=== PATIENT | female | born 1985 | race Caucasian/White ===

== ENCOUNTER 2019-12-07 09:59 | Emergency (ER) | payer OTHER ==
--- OUTSIDE RECORDS SUMMARY | 2019-12-07 10:01 | XMS REPORT ---
:1985 Author Organization eClinicalWorks Care Team Providers Name Role Phone Kell Hope Provider Role Unavailable Allergies, Adverse Reactions, Alerts Substance Reaction Event Type N.K.D.A. Info Not Available Non Drug Allergy Problems Problem Type Condition Code Onset Dates Condition Statu s Assessment Major depressive disorder, single F32.9 Active episode, unspecified Assessment Adult BMI 50.0-59.9 kg/sq m Z68.43 Active Assessment Advised about management of weight Z78.9 Active Problem Adult BMI 50.0-59.9 kg/sq m Z68.43 Active Problem Morbid obesity E66.01 Active Problem Encounter for preoperative Z01.818 A ctive examination for general surgical procedure Problem Major depressive disorder, single F32.9 Active episode, unspecified Problem Other fatigue R53.83 Active Problem Amenorrhea N91.2 Active Problem Seasonal allergies J30.2 Active Medications Medication Code Code Instructions Start End Date Status Dosage System Date BuPROPion HCl [facility] [id number] 100 MG Orally Jun 13, Active 1 tablet Twice a day 2018 Results No Known Results Summary Purpose eClinicalWorks Submission
--- OUTSIDE RECORDS SUMMARY | 2019-12-07 10:01 | XMS REPORT ---
[...] BMI 50.0-59.9 kg/sq m Z68.43 Active Problem Adult BMI 50.0-59.9 kg/sq m Z68.43 Active Problem Morbid obesity E66.01 Active Problem Encounter for preoperative Z01.818 A ctive examination for general surgical procedure Problem Major depressive disorder, single F32.9 Active episode, unspecified Problem Other fatigue R53.83 Active Problem Amenorrhea N91.2 Active Problem Seasonal allergies J30.2 Active Medications Medication Code Code Instructions Start End Date Status Dosage System Date BuPROPion HCl [facility] [id number] 100 MG Orally Jun 13, Active 1 tablet Twice a day 2018 Results No Known Results Summary Purpose eClinicalWorks Submission
--- OUTSIDE RECORDS SUMMARY | 2019-12-07 10:01 | XMS REPORT ---
:1985 Author Organization eClinicalWorks Care Team Providers Name Role Phone Kell Hope Provider Role Unavailable Allergies No Known Allergies Problems Problem Type Condition Code Onset Dates Condition Statu s Problem Other fatigue R53.83 Active Problem Encounter for preoperative Z01.818 A ctive examination for general surgical procedure Problem Adult BMI 50.0-59.9 kg/sq m Z68.43 Active Problem Vitamin D deficiency E55.9 Active Problem Seasonal allergies J30.2 Active Problem Major depressive disorder, single F32.9 Active episode, unspecified Problem Morbid obesity E66.01 Active Problem Amenorrhea N91.2 Active Medications No Known Medications Results No Known Results Summary Purpose eClinicalWorks Submission
--- OUTSIDE RECORDS SUMMARY | 2019-12-07 10:01 | XMS REPORT ---
:1985 Author Organization eClinicalWorks Care Team Providers Name Role Phone Kell Hope Provider Role Unavailable Allergies, Adverse Reactions, Alerts Substance Reaction Event Type N.K.D.A. Info Not Available Non Drug Allergy Problems Problem Type Condition Code Onset Dates Condition Statu s Assessment Major depressive disorder, single F32.9 Active episode, unspecified Assessment Morbid obesity E66.01 Active Problem Adult BMI 50.0-59.9 kg/sq m Z68.43 Active Problem Amenorrhea N91.2 Active Problem Morbid obesity E66.01 Active Problem Other fatigue R53.83 Active Problem Seasonal allergies J30.2 Active Problem Major depressive disorder, single F32.9 Active episode, unspecified Medications Medication Code Code Instructions Start End Date Status Dosage System Date BuPROPion HCl [facility] [id number] 100 MG Orally Jun 13, Active 1 tablet Twice a day 2018 Results No Known Results Summary Purpose eClinicalWorks Submission
--- OUTSIDE RECORDS SUMMARY | 2019-12-07 10:01 | XMS REPORT ---
:1985 Author Organization eClinicalWorks Care Team Providers Name Role Phone Kell Hope Provider Role Unavailable Allergies, Adverse Reactions, Alerts Substance Reaction Event Type N.K.D.A. Info Not Available Non Drug Allergy Problems Problem Type Condition Code Onset Dates Condition Statu s Assessment Major depressive disorder, single F32.9 Active episode, unspecified Problem Other fatigue R53.83 Active Assessment BCP ( control pills) Z30.011 Ac tive initiation Assessment Morbid obesity E66.01 Active Problem Encounter for preoperative Z01.818 A ctive examination for general surgical procedure Problem Adult BMI 50.0-59.9 kg/sq m Z68.43 Active Problem Vitamin D deficiency E55.9 Active Problem Seasonal allergies J30.2 Active Problem Major depressive disorder, single F32.9 Active episode, unspecified Problem Morbid obesity E66.01 Active Problem Amenorrhea N91.2 Active Medications Medication Code Code Instructions Start End Date Status Dosage System Date BuPROPion HCl [facility] [id number] 100 MG Orally Jun 13, Active 1 tablet Twice a day 2018 [employer] 28 [place] [id number] 0.25-35 MG-MCG October 13, Active 1 tablet Orally Once a 2019 Results Name Result Date Reference Range Unit Abnormali ty Flag TEST URINE ----RESULTS neg [id number] Summary Purpose eClinicalWorks Submission
--- OUTSIDE RECORDS SUMMARY | 2019-12-07 10:01 | XMS REPORT ---
:1985 Author Organization eClinicalWorks Care Team Providers Name Role Phone Kell Hope Provider Role Unavailable Allergies, Adverse Reactions, Alerts Substance Reaction Event Type N.K.D.A. Info Not Available Non Drug Allergy Problems Problem Type Condition Code Onset Dates Condition Statu s Assessment Adult BMI 50.0-59.9 kg/sq m Z68.43 Active Assessment Major depressive disorder, single F32.9 Active [...] Date Status Dosage System Date BuPROPion HCl [facility] [id number] 75 MG Orally Jun 13, Active 1 tablet Twice a day 2018 Results No Known Results Summary Purpose eClinicalWorks Submission
--- OUTSIDE RECORDS SUMMARY | 2019-12-07 10:02 | XMS REPORT ---
:1985 Author Organization [facility] t Address [address] [place] [address] Care Team Providers Name Role Phone Unavailable Unavailable Unavailable Payers Payer Name Policy Type Policy Number Effective Date Expiration D ate Problems Condition Condition Condition Status Onset Resolution Last Treatin g Comments Name Details Category Date Date Treatment Clinician Date Other Other Problem Active fatigue fatigue Major Major Problem Active depressive depressive disorder, disorder, single single episode, episode, unspecified unspecified Seasonal Seasonal Problem Active allergies allergies Amenorrhea Amenorrhea Problem Active Adult BMI Adult BMI Problem Active 50.0-59.9 50.0-59.9 kg/sq m kg/sq m Morbid Morbid Problem Active obesity obesity Encounter Encounter Problem Active for for preoperativ preoperativ e e examination examination for general for general surgical surgical procedure procedure Vitamin D Vitamin D Problem Active deficiency deficiency Menorrhagia Menorrhagia Problem Active Allergies, Adverse Reactions, Alerts This patient has no known allergies or adverse reactions. Medications Ordered Filled Start Stop Current Ordering Indication Dosage Frequency Signature Comments Components Medication Medication Date Date Medication? Clinician (SIG) Name Name [facility] 28 [facility] 28 Yes Kell 1 table t 10-13 [place] 00:00: 00 BuPROPion BuPROPion 2018-08 Yes Kell 1 tablet HCl HCl 08-13 [place] 00:00: 00 Encounters Start End Encounter Admission Attending Care Care Encounter Date/Time Date/Time Type Type Clinicians Facility Department ID 2019-11-30 2019-11-30 [facility] [id number] 15:55:00 15:55:00 [facility] Medicine Medicine 2019-11-26 2019-11-26 [facility] [id number] 13:26:00 13:26:00 [facility] Medicine Medicine 2019-11-25 2019-11-25 [facility] [id number] 13:46:00 13:46:00 [facility] 2019-10-14 2019-10-14 [facility] [id number] 08:00:00 08:00:00 [facility] 2019-09-19 2019-09-19 [facility] [id number] 13:00:00 13:00:00 [facility] 2019-08-22 2019-08-22 [facility] [id number] 14:00:00 14:00:00 [facility] 2019-07-11 2019-07-11 [facility] [id number] 14:40:00 14:40:00 [facility] 2019-06-13 2019-06-13 [facility] [id number] 08:00:00 08:00:00 [facility] 2019-05-30 2019-05-30 [facility] [id number] 11:00:00 11:00:00 [facility]
--- OUTSIDE RECORDS SUMMARY | 2019-12-07 10:02 | XMS REPORT ---
:1985 Author Organization eClinicalWorks Care Team Providers Name Role Phone Kell Hope Provider Role Unavailable Allergies No Known Allergies Problems Problem Type Condition Code Onset Dates Condition Statu s Problem Major depressive disorder, single F32.9 Active episode, unspecified Problem Other fatigue R53.83 Active Assessment Menorrhagia N92.0 Active Problem Vitamin D deficiency E55.9 Active Problem Encounter for preoperative Z01.818 A ctive examination for general surgical procedure Problem Menorrhagia N92.0 Active Problem Amenorrhea N91.2 Active Problem Seasonal allergies J30.2 Active Problem Adult BMI 50.0-59.9 kg/sq m Z68.43 Active Problem Morbid obesity E66.01 Active Medications No Known Medications Results No Known Results Summary Purpose eClinicalWorks Submission
--- OUTSIDE RECORDS SUMMARY | 2019-12-07 10:02 | XMS REPORT | Summary of Care ---
:1985 Author Organization [facility] Address [address] [place] [address] Care Team Providers Name Role Phone Unavailable Primary Care Provider Unavailable Reason for Visit Reason Comments Assessment Encounter Details Date Type Department Care Team Description 12/07/2019 Telephone [facility] Dorian Marquez, SENIOR CREDIT ANALYST Assessment [address] [facility] [address] [place] [address] [address] [place] [address] [phone] Allergies No Known Allergiesdocumented as of this encounter (statuses as of 12/07/2019) Medications Medication Sig Dispensed Refills Start Date End Date Status norgestimate-ethinyl Take 1 tablet by 1 Package 11 08/12/2018 Active estradiol mouth daily. 0.18/0.215/0.25 mg-25 mcg tablet documented as of this encounter (statuses as of 12/07/2019) Active Problems Problem Noted Date Morbid obesity 05/20/2017 Surveillance of previously prescribed contraceptive pi ll 05/20/2017 Need for varicella vaccine 05/20/2017 Well woman exam 05/20/2017 documented as of this encounter (statuses as of 12/07/2019) Resolved Problems Problem Noted Date Resolved Date Acne, unspecified acne type 05/20/2017 05/20/2018 History of gestational diabetes mellitus (GDM) 05/20/2017 05/20/2018 Routine follow-up 04/29/2017 05/20/2017 Anemia, 04/29/2017 05/20/2017 GDM (gestational diabetes mellitus) 04/29/201705/10 37 weeks gestation of 04/06/2017 04/29/20 17 Polyhydramnios, antepartum complication 03/20/2017 04/29/2017 Overview: Per 03/19/17 usg Macrosomia 03/20/2017 04/29/2017 Overview: Per 03/19/17 usg GDM, class A2 01/27/2017 04/17/2017 Abnormal maternal glucose tolerance, antepartum 01/21/2017 02/03/2017 uterine contractions 01/06/2017 04/06/2017 Supervision of high risk , antepartum, second 12/0404/29/2017 trimester Multiparity 12/04/2016 04/29/2017 Nausea and vomiting during prior to 22 weeks 12/0404/29/2017 gestation Acute midline low back pain, with sciatica presence unspecif ied 12/04/2016 04/29/2017 Maternal varicella, non-immune 11/06/2016 7 Pelvic pain in 11/05/2016 04/29/2017 with uncertain dates, antepartum 10/08/2016 01/06/2017 High risk , antepartum 09/17/2016 12/05/19 17 Maternal morbid obesity, antepartum, second trimester 201604/29/2017 History of pre-eclampsia in prior , currently 09/1704/29/2017 , unspecified trimester Contraceptive management 06/29/2015 09/17/2016 Morbid obesity 06/29/2015 10/08/2016 Irregular menstrual cycle 06/29/2015 01/06/2017 BV (bacterial vaginosis) 06/29/2015 09/17/2016 Pain pelvic 06/29/2015 09/17/2016 documented as of this encounter (statuses as of 12/07/2019) Immunizations Name Administration Dates Next Due Td 08/10/1999 Tdap 02/03/2017 documented as of this encounter Social History Tobacco Use Types Packs/Day Years Used Date Never Smoker Smokeless Tobacco: Never Used Alcohol Use Drinks/Week oz/Week Comments Yes 1 Glasses of wine 1.0 0 Standard drinks or equivalent Sex Assigned at Date Recorded Not on file Job Start Date Occupation Industry Not on file Not on file Not on file Travel History Travel Start Travel End No recent travel history available. documented as of this encounter Last Filed Vital Signs Not on filedocumented in this encounter Plan of Treatment Date Type Specialty Care Team Description 12/08/2019 Office Visit [facility] Dorian Bose R, SENIOR CREDIT ANALYST [address] [place], [place] [address] [phone] Health Maintenance Due Date Last Done Comments VARICELLA VACCINES (1 of 2 1987 - 2-dose childhood series) PAP SMEAR 06/26/2018 06/26/2015, 05/18/2012, 06/10/2007, Additional history exists INFLUENZA VACCINE (#1) 2019 DTaP,Tdap,and Td Vaccines 02/03/2027 02/03/2017, 08/10/1999 (3 - Td) PNEUMOCOCCAL 0-64 YEARS Aged Out No longe r eligible COMBINED SERIES based on patient 's age to complete this topic documented as of this encounter Results Not on filedocumented in this encounter Insurance Payer Benefit Plan / Subscriber ID Effective Dates Phone Addre ss Type Group [facility] xxxxxxxxx 2019-Present Medicaid COMM PLAN - MANAGED MEDICAID documented as of this encounter Advance Directives Name Relationship Healthcare Agent Relationship Co mmunication Bharat Titus Life Partner Primary healthcare agent Heather Junaid Mother First alternate healthcare agent
--- OUTSIDE RECORDS SUMMARY | 2019-12-07 10:02 | XMS REPORT ---
:1985 Author Organization eClinicalWorks Care Team Providers Name Role Phone Kell Hope Provider Role Unavailable Allergies No Known Allergies Problems Problem Type Condition Code Onset Dates Condition Statu s Problem Major depressive disorder, single F32.9 Active episode, unspecified Problem Other fatigue R53.83 Active Problem Vitamin D deficiency E55.9 Active [...]
[2019-12-07 10:59] LABS: Absolute Lymphocytes (CBC) 1.8 K/uL (0.7-4.9); Basophils % 0.7 % (0-1.3); Lymphocytes % 30.1 % (15.3-44.8); MPV 8.1 fL (7.6-11.3); RBC Red Blood Cell Count 4.62 M/uL (3.86-4.86)
[2019-12-07 11:13] LABS: Potassium 3.7 mmol/L (3.5-5.1)
[2019-12-07 11:25] LABS: Urine Blood 2+ (NEG); Urine Glucose NEGATIVE (NEG); Urine Protein NEGATIVE (NEG); Urine Specific Gravity >1.030 (1.005-1.030)
--- NOTE | 2019-12-07 12:47 | ER ---
Nurse's Notes [facility] Name: Cyndie Soliz Age: 34 yrs Sex: Female : 1985 Arrival Date: 12/07/2019 Time: 10:03 Bed 5 Private MD: Kell Hope Diagnosis: Abnormal uterine and vaginal bleeding, unspecified Presentation: 12/06 10:18 Chief complaint: Heavy vaginal bleeding x 44 days. Pt reports soaking ultra tampon hb every hour. Coronavirus screen: Proceed with normal triage. Ebola Screen: No symptoms or risks identified at this time. Initial Sepsis Screen: Does the patient meet any 2 criteria? No. Patient's initial sepsis screen is negative. Does the patient have a suspected source of infection? No. Patient's initial sepsis screen is negative. Risk Assessment: Do you want to hurt yourself or someone else? Patient reports no desire to harm self or others. Onset of symptoms was October 2019. 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 - Social history:: Smoking status: Patient denies any tobacco usage or history of. Screenin:22 Abuse screen: Denies threats or abuse. Nutritional screening: No deficits noted. Tuberculosis screening: No symptoms or risk factors identified. Fall Risk None identified. Assessment: 10:20 General: Appears in no apparent distress. Behavior is calm, cooperative. Pain: Complains of pain in abdomen Pain does not radiate. Neuro: Level of Consciousness is awake, alert, Oriented to person, place, time. Cardiovascular: Heart tones S1 S2 present. Respiratory: Airway is patent Respiratory effort is even, unlabored, Respiratory pattern is regular, symmetrical. GI:. EENT: No signs and/or symptoms were reported regarding the EENT system. Derm: No signs and/or symptoms reported regarding the dermatologic system. Musculoskeletal: No deficits noted. 12:36 Reassessment: Pt back from ultrasound and hooked up. No needs voiced at this time. ah 12:56 Reassessment: CONSTANTIN Linares at bedside discussing results and POC, pt verbalized jl7 understanding. Vital Signs: 10:18 BP 157 / 82; Pulse 76; Resp 16; Temp 98.1; Pulse Ox 99% ; Weight 154.22 kg; Height 5 hb ft. 7 in. (170.18 cm); Pain 5/10; 11:44 BP 115 / 62; Pulse 76; Resp 16; Temp 98.5(TE); Pulse Ox 96% on R/A; mh5 12:36 BP 122 / 67; Pulse 78; Resp 17; Pulse Ox 97% ; ah 10:18 Body Mass Index 53.25 (154.22 kg, 170.18 cm) hb ED Course: 10:03 Patient arrived in ED. mr 10:04 JayyKell is Private Physician. mr 10:04 Imani Freedman FNP-C is PHCP. kb 10:04 Jose Luis Bliss MD is Attending Physician. kb 10:05 PHCP role handed off by Imani Freedman FNP-C jr8 10:05 Vijay Ortiz PA is PHCP. jr8 10:19 Triage completed. hb 10:20 Nancy Buchanan, RN is Primary Nurse. ah 10:20 Arm band placed on. hb 10:22 Patient has correct armband on for positive identification. Placed in gown. Bed in low ah position. Call light in reach. 10:49 Initial lab(s) drawn, by al, sent to lab. Inserted saline lock: 20 gauge in right jl7 antecubital area, using aseptic technique. Blood collected. 12:10 Patient taken to ultrasound. via wheelchair. ah 12:33 Patient moved back from ultrasound. ah 12:38 Transvaginal Study (probe) In Process Unspecified. EDMS 12:56 No provider procedures requiring assistance completed. IV discontinued, intact, jl7 bleeding controlled, No redness/swelling at site. Pressure dressing applied. 13:55 Pelvis Complete In Process Unspecified. EDMS Administered Medications: No medications were administered Outcome: 12:47 Discharge ordered by . jr8 12:56 Discharged to home ambulatory. jl7 12:56 Condition: stable 12:56 Discharge instructions given to patient, Instructed on discharge instructions, follow up and referral plans. medication usage, Demonstrated understanding of instructions, follow-up care, medications, Prescriptions given X 3. 12:59 Patient left the ED. nely Signatures: Dispatcher [employer] EDMS Imani Freedman, STATISTICIAN MATHEMATICAL-C STATISTICIAN MATHEMATICAL-Ckchristian RamirezaRafeala mr Angel, CONSTANTIN Linares jr8 Sabrina Casillas, BRANDT RN Ashley Cerda [facility] Yadi Koch RN RN jl7 Nancy Buchanan, RN RN
--- NOTE | 2019-12-07 12:47 | EDPHYS ---
Physician Documentation [facility] Name: Cyndie Soliz Age: 34 yrs Sex: Female : 1985 Arrival Date: 12/07/2019 Time: 10:03 Bed 5 Private MD: Kell Hope ED Physician Jose Luis Bliss HPI: 12/06 11:13 This 34 yrs old Female presents to ER via Ambulatory with complaints of jr8 Vaginal Bleeding. 11:13 The patient presents with vaginal bleeding that is heavy. Onset: The symptoms/episode jr8 began/occurred gradually, 45 day(s) ago. Modifying factors: The symptoms are alleviated by nothing, the symptoms are aggravated by nothing. Associated signs and symptoms: The patient has no apparent associated signs or symptoms. Severity of symptoms: At their worst the symptoms were moderate, in the emergency department the symptoms are unchanged. The patient's method of control includes BCP. The patient has not experienced similar symptoms in the past. The patient has not recently seen a physician. Patient stated that she has PCOS and is on control. Has not had a menstrual cycle in years. Stated that she started with one about 45 days ago and has not gone away and is getting worse. Stated that she is soaking through jumbo tampons every hour . PORTFOLIO ARCHITECT: 12:59 LMP 10/26/2019 jl7 Historical: - Allergies: 10:20 No Known Allergies; hb - Home Meds: 10:20 Bupropion Oral [Active]; Oral BC [Active]; hb - PMHx: 10:20 PCOS; hb - PSHx: 10:20 Breast Reduction; ; hb - Immunization history:: Adult Immunizations up to date. - Social history:: Smoking status: Patient denies any tobacco usage or history of. ROS: 11:13 Eyes: Negative for injury, pain, redness, and discharge, ENT: Negative for injury, jr8 pain, and discharge, Neck: Negative for injury, pain, and swelling, Cardiovascular: Negative for chest pain, palpitations, and edema, Respiratory: Negative for shortness of breath, cough, wheezing, and pleuritic chest pain, Abdomen/GI: Negative for abdominal pain, nausea, vomiting, diarrhea, and constipation, Back: Negative for injury and pain, MS/Extremity: Negative for injury and deformity, Skin: Negative for injury, rash, and discoloration, Neuro: Negative for headache, weakness, numbness, tingling, and seizure. 11:13 : Positive for vaginal bleeding, menstrual abnormality. Exam: 11:13 Eyes: Pupils equal round and reactive to light, extra-ocular motions intact. Lids and jr8 lashes normal. Conjunctiva and sclera are non-icteric and not injected. Cornea within normal limits. Periorbital areas with no swelling, redness, or edema. ENT: Nares patent. No nasal discharge, no septal abnormalities noted. Tympanic membranes are normal and external auditory canals are clear. Oropharynx with no redness, swelling, or masses, exudates, or evidence of obstruction, uvula midline. Mucous membranes moist. Neck: Trachea midline, no thyromegaly or masses palpated, and no cervical lymphadenopathy. Supple, full range of motion without nuchal rigidity, or vertebral point tenderness. No Meningismus. Cardiovascular: Regular rate and rhythm with a normal S1 and S2. No gallops, murmurs, or rubs. Normal PMI, no JVD. No pulse deficits. Respiratory: Lungs have equal breath sounds bilaterally, clear to auscultation and percussion. No rales, rhonchi or wheezes noted. No increased work of breathing, no retractions or nasal flaring. Abdomen/GI: Soft, non-tender, with normal bowel sounds. No distension or tympany. No guarding or rebound. No evidence of tenderness throughout. Back: No spinal tenderness. No costovertebral tenderness. Full range of motion. Skin: Warm, dry with normal turgor. Normal color with no rashes, no lesions, and no evidence of cellulitis. MS/ Extremity: Pulses equal, no cyanosis. Neurovascular intact. Full, normal range of motion. Neuro: Awake and alert, GCS 15, oriented to person, place, time, and situation. Cranial nerves II-XII grossly intact. Motor strength 5/5 in all extremities. Sensory grossly intact. Cerebellar exam normal. Normal gait. Vital Signs: 10:18 BP 157 / 82; Pulse 76; Resp 16; Temp 98.1; Pulse Ox 99% ; Weight 154.22 kg; Height 5 hb ft. 7 in. (170.18 cm); Pain 5/10; 11:44 BP 115 / 62; Pulse 76; Resp 16; Temp 98.5(TE); Pulse Ox 96% on R/A; mh5 12:36 BP 122 / 67; Pulse 78; Resp 17; Pulse Ox 97% ; ah 10:18 Body Mass Index 53.25 (154.22 kg, 170.18 cm) hb MDM: 10:27 Patient medically screened. [facility] 12:45 Data reviewed: vital signs, nurses notes, lab test result(s), radiologic studies, [facility] ultrasound. Data interpreted: Pulse oximetry: on room air is 97 %. Interpretation: normal. Counseling: I had a detailed discussion with the patient and/or guardian regarding: the historical points, exam findings, and any diagnostic results supporting the discharge/admit diagnosis, lab results, radiology results, the need for outpatient follow up, an OB/Gyne specialist, to return to the emergency department if symptoms worsen or persist or if there are any questions or concerns that arise at home. ED course: Patient will be taken off of her old BCP Sprintec and put on Premarin until bleeding is controlled and then switched to medroxyprogesterone for 10 days. Patient will be f/u with OB in the next week. Knows to come back if worse . 12/06 10:33 Order name: Urine Dipstick--Ancillary (enter results); Complete Time: 11:32 bd 12/06 10:33 Order name: Urine --Ancillary (enter results); Complete Time: 11:32 bd 12/06 10:33 Order name: CBC with Diff; Complete Time: 11:15 [facility] 12/06 10:33 Order name: Basic Metabolic Panel; Complete Time: 11:15 [facility] 12/06 10:34 Order name: Transvaginal Study (probe) [facility] 12/06 12:43 Order name: Pelvis Complete EDMS 12/06 10:05 Order name: Urine Test (obtain specimen); Complete Time: 10:49 kb 12/06 10:05 Order name: Urine Dipstick-Ancillary (obtain specimen); Complete Time: 10:49 kb Administered Medications: No medications were administered Disposition: 17:28 Co-signature as Attending Physician, Jose Luis Bliss MD I agree with the assessment and kdr plan of care. Disposition: 12/07/19 12:47 Discharged to Home. Impression: Abnormal uterine and vaginal bleeding, unspecified. - Condition is Stable. - Discharge Instructions: Abnormal Uterine Bleeding. - Prescriptions for medroxyprogesterone 10 mg Oral tablet - take 1 tablet by ORAL route once daily for 10 days To be taken after uterine bleeding is controlled; 10 tablet. promethazine 25 mg Oral Tablet - take 1 tablet by ORAL route every 6 hours As needed; 20 tablet. - Medication Reconciliation Form, Thank You Letter, Antibiotic Education, Prescription Opioid Use form. - Follow up: Private Physician; When: 1 week; Reason: Recheck today's complaints, Continuance of care, Re-evaluation by your physician. - Problem is new. - Symptoms have improved. Signatures: Dispatcher [employer] EDMS Imani Freedman, MOLDED GRID AND PARTS INSPECTOR-C MOLDED GRID AND PARTS INSPECTOR-Ckb Jose Luis Bliss MD MD kdr Roszak, Josh, PA PA jr8 Sabrina Casillas, RN RN Yadi Koch RN RN jl7 Corrections: (The following items were deleted from the chart) 12:59 12:47 12/07/2019 12:47 Discharged to Home. Impression: Abnormal uterine and vaginal jl7 bleeding, unspecified. Condition is Stable. Forms are Medication Reconciliation Form, Thank You Letter, Antibiotic Education, Prescription Opioid Use. Follow up: Private Physician; When: 1 week; Reason: Recheck today's complaints, Continuance of care, Re-evaluation by your physician. Problem is new. Symptoms have improved. jr8
[2019-12-07 13:17] VITALS: TEMP 98.5
[2019-12-07 13:27] VITALS: BP 122/67; O2SAT 97
--- NOTE | 2019-12-07 14:06 | RAD REPORT ---
EXAM DESCRIPTION: US - Pelvis Complete - 12/07/2019 1:54 pm CLINICAL HISTORY: VAG BLEEDING COMPARISON: TRANSVAGINAL STUDY PROBE dated 01/31/2008 TECHNIQUE: Transabdominal pelvic sonography was performed. FINDINGS: No endometrial thickening or focal endometrial abnormality identifiable on this transabdom inal approach. No suspicious myometrial finding. Echogenic focus along the anterior lower uterine wal l is probably from prior . No suspicious myometrial finding. Both ovaries are identifiable and normal in size. No suspicious solid or cystic ovarian or adnexal fi nding. No blood or fluid in the cul de sac. IMPRESSION: Transabdominal pelvic sonography shows no significant or suspicious finding.
--- NOTE | 2019-12-07 14:08 | RAD REPORT ---
EXAM DESCRIPTION: US - Transvaginal Study Probe - 12/07/2019 1:12 pm CLINICAL HISTORY: VAGINAL BLEEDINGdysmenorrhea COMPARISON: Pelvis Complete dated 12/07/2019 TECHNIQUE: Endovaginal sonography was performed. FINDINGS: Endovaginal sonography was completed. Several small nabothian cysts are identified. No kate metrial mass identifiable. No focal endometrial process confirmed. Ovaries were obscured by bowel movement about will approach. No blood or fluid in the cul de sac. IMPRESSION: No uterine abnormality identifiable. Specifically, no discrete endometrial abnormality c onfirmed. Nonvisualization of the ovaries on endovaginal approach due to prominent bowel.
== END 2019-12-07 12:59 | disposition home or self-care (01) ==
LOC: ER 09:59
DX: N93.9 Abnormal uterine and vaginal bleeding, unspecified (principal)
CPT/HCPCS: 36415; 76830; 76856; 80048; 81003; 81025; 85025; 99284

== ENCOUNTER 2019-12-22 00:16 | Inpatient (IN) | payer OTHER ==
--- OUTSIDE RECORDS SUMMARY | 2019-12-22 00:19 | XMS REPORT ---
[...] Date Status Dosage System Date BuPROPion HCl [facility] [id number] 100 MG Orally Jun 13, Active 1 tablet Twice a day 2018 Results No Known Results Summary Purpose eClinicalWorks Submission
--- OUTSIDE RECORDS SUMMARY | 2019-12-22 00:19 | XMS REPORT ---
[...] Status Dosage System Date BuPROPion HCl [facility] [id number] 75 MG Orally Jun 13, Active 1 tablet Twice a day 2018 Results No Known Results Summary Purpose eClinicalWorks Submission
--- OUTSIDE RECORDS SUMMARY | 2019-12-22 00:20 | XMS REPORT ---
[...] Date Status Dosage System Date BuPROPion HCl [facility] [id number] 100 MG Orally Jun 13, Active 1 tablet Twice a day 2018 Results No Known Results Summary Purpose eClinicalWorks Submission
--- OUTSIDE RECORDS SUMMARY | 2019-12-22 00:20 | XMS REPORT ---
[...] Dosage System Date BuPROPion HCl [facility] [id number] 100 MG Orally Jun 13, Active 1 tablet Twice a day 2018 Sprintec 28 ND [id number] 0.25-35 MG-MCG October 13, Active 1 tablet Orally Once a 2019 Results Name Result Date Reference Range Unit Abnormali ty Flag TEST URINE ----RESULTS neg [id number] Summary Purpose eClinicalWorks Submission
--- OUTSIDE RECORDS SUMMARY | 2019-12-22 00:20 | XMS REPORT ---
[...] Date Status Dosage System Date BuPROPion HCl [facility] [id number] 100 MG Orally Jun 13, Active 1 tablet Twice a day 2018 Results No Known Results Summary Purpose eClinicalWorks Submission
--- OUTSIDE RECORDS SUMMARY | 2019-12-22 00:21 | XMS REPORT ---
:1985 Author Organization [facility] t Address [address] [place] [address] Care Team Providers Name Role Phone Marilee Fletcher Attending Clinician Payers Payer Name Policy Type Policy Number Effective Date Expiration Date S ource Problems Condition Condition Condition Status Onset Resolution Last Treating Co mments Source Name Details Category Date Date Treatment Clinician Date Other Other Problem Active [facility] Clinics Major Major Problem Active [facility] depressive depressive Taylor kes - disorder, disorder, Sudeep jack single single l episode, episode, Outpat i unspecifie unspecifie en t d d Clinics Seasonal Seasonal Problem Active [facility] allergies [facility] Clinics Amenorrhea Amenorrhea Problem Active [facility] Adult BMI Adult BMI Problem Active [facility] 50.0-59.9 50.0-59.9 Luke s - kg/sq m kg/sq m [facility] ent Clinics Morbid Morbid Problem Active [facility] obesity obesity [facility] Clinics Encounter Encounter Problem Active [facility] for for [facility] - preoperati preoperati Me moria ve ve l examinatio examinatio Ou tpati n for n for ent general general Clinics surgical surgical procedure procedure Vitamin D Vitamin D Problem Active [facility] deficiency deficiency Taylor kes - [facility] ent Clinics Menorrhagi Menorrhagi Problem Active [facility] Allergies, Adverse Reactions, Alerts Allergy Allergy Status Severity Reaction(s) Onset Inactive Treating Comm ents Source Name Type Date Date Clinician No Known DA Active [facility]ie 12-15 [place] [facility] 00:[facility]: [facility] 00 [facility] Medications Ordered Filled Start Stop Current Ordering Indication Dosage Frequency Signature Comments Components Source Medication Medication Date Date Medication? Clinician (SIG) Name Name Sprintec 28 Sprintec 28 Yes Kell [address] [facility] 3-06 [facility] - 00:[facility]: [facility] 00 [facility] ent Clinics BuPROPion BuPROPion 2018-08 Yes Kell [address] [facility] HCl HCl 1- [place] [facility] - 00:00: [facility] ent Clinics Procedures This patient has no known procedures. Encounters Start End Encounter Admission Attending Care Care Encounter Source Date/Time Date/Time Type Type Clinicians Facility Department ID 2019-12-07 2019-12-07 [facility] [id number] 00:00:00 00:00:00 Dorian Hunt SEAM CLOSER [id number] REGIONAL [id number] MATERNAL [id number] & CHILD 107 [facility] 2019-11-30 2019-11-30 [facility] [id number] 15:55:00 15:55:00 [facility] Clinics 2019-11-26 2019-11-26 [facility] [id number] 13:26:00 13:26:00 [facility] Medicine Outpati ent Clinics 2019-11-25 2019-11-25 [facility] [id number] 13:46:00 13:46:00 [facility] Clinics 2019-10-14 2019-10-14 [facility] [id number] 08:00:00 08:00:00 [facility] Medicine [facility] Clinics 2019-09-19 2019-09-19 [facility] [id number] [facility] 13:00:00 13:00:00 [facility] ent [facility] 2019-08-22 2019-08-22 Outpatient [facility] [id number] [facility] 14:00:00 14:00:00 [facility] ent [facility] 2019-07-11 2019-07-11 Outpatient Renita [place] [id number] 14:40:00 14:40:00 [facility] ent Clinics 2019-06-13 2019-06-13 Outpatient Renita [place] [id number] 08:00:00 08:00:00 [facility] ent [facility] 2019-05-30 2019-05-30 Outpatient Renita [facility] [id number] 11:00:00 11:00:00 [facility] Results Test Description Test Time Test Comments Results Result Comments Source BASIC METABOLIC PANEL 2019-12-21 06:47:00 Test Item Value Reference Range Interpretation Comme nts SODIUM (test code = NA) 141 MMOL/L 136-143 N POTASSIUM (test code = K) 5.0 MMOL/L 3.5-5.1 N CHLORIDE (test code = CL) 102 MMOL/L 98-107 N CARBON DIOXIDE (test code = 27 mmol/L 24-31 N CO2) GLUCOSE (test code = GLU) 130 mg/dL 70-104 H BLOOD UREA NITROGEN (test 4.7 MG/DL 7.0-21.0 L code = BUN) GLOMERULAR FILTRATION RATE >=60 max estimate >60 The estimated glomerular (test code = GFR) filtration rate is computed usingpatient ra ce, age (>18), sex, and serum creatinine. If anyof the neede d data elements are mi ssing the Laboratory saranya ot compute an estimation of t he glomerular filtration rate . CREATININE (test code = 0.9 mg/dL 0.8-1.5 N CREAT) CALCIUM (test code = CA) 9.0 mg/dL 8.8-10.2 N [id number] 06:47:00 Test Item Value Reference Range Interpretation Comments PHOSPHOROUS (test code = PHOS) 3.4 mg/dL 2.7-4.5 N [id number] 06:47:00 Test Item Value Reference Range Interpretation Comments MAGNESIUM (test code = MAG) 2.2 mg/dL 1.4-2.6 N CBC W/AUTO [id number] 06:19:00 Test Item Value Reference Range Interpretation Comments WHITE BLOOD CELL (test code = 11.7 x10 3/uL 4.8-10.8 H WBC) RED BLOOD CELL (test code = 4.86 x10 6/uL 4.20-5.40 N RBC) HEMOGLOBIN (test code = HGB) 13.9 g/dL 14.5-20 L HEMATOCRIT (test code = HCT) 43.9 % 37.0-47.0 N MEAN CELL VOLUME (test code = 90.3 fL 81.0-99.0 N MCV) MEAN CELL HGB (test code = MCH) 28.6 pg 27-31 N MEAN CELL HGB CONCENTRATION 31.7 G/DL 33-36.5 L (test code = MCHC) RED CELL DISTRIBUTION WIDTH 12.6 % 12.9-16.9 L (test code = RDW) PLATELET COUNT (test code = 307 150-440 N PLT) MEAN PLATELET VOLUME (test code 9.7 fL 8.9-12.4 N = MPV) NEUTROPHIL % (test code = NT%) 80.2 % 42.2-75.2 H LYMPHOCYTE % (test code = LY%) 14.3 % 20.5-51.1 L MONOCYTE % (test code = MO%) 5.1 % 1.7-9.3 N EOSINOPHIL % (test code = EO%) 0.0 % 0.0-7.0 N BASOPHIL % (test code = BA%) 0.2 % 0-2.5 N NEUTROPHIL # (test code = NT#) 9.36 x10 3/uL 1.80-7.70 H LYMPHOCYTE # (test code = LY#) 1.67 x10 3/uL 1.00-4.80 N MONOCYTE # (test code = MO#) 0.60 x10 3/uL 0.00-0.80 N EOSINOPHIL # (test code = EO#) 0.00 x10 3/uL 0.00-0.45 N BASOPHIL # (test code = BA#) 0.02 x10 3/uL 0.0-0.20 N UR HCG [id number] 10:27:00 Test Item Value Reference Range Interpretation Comments UR HCG QUAL (test code = HCGQLU) NEGATIVE NEGATIVE PROTHROMBIN [id number] 12:54:00 Test Item Value Reference Range Interpretation Comments PROTHROMBIN TIME 12.4 SECONDS 10.3-12.9 N PATIENT (test code = PTP) INTERNATIONAL 1.09 INR UNIT 0.9-1.11 N The INR is us eful only NORMAL RATIO (test for monit oring code = INR) anticoagulant therapy.It may be unreliable in t he initial phase o f antigoagulation and in unstable patien ts. Indication for Anticoagulation Recommend ed INR 1. Prevention o f venous thomboembolism 2.0-3.0in high -risk patients; treat ment of venousthrombosi s and pulmonary embol ism aftera course o f heparin; preven tion of systemicembolis m in a variety of cond itions, including atria l fibrillation an d prothetic tissu e heart valves, 2. Pros thetic mechanical hear t valves; 2.5-3.5recurren t systemic emboli sm. THROMBOPLASTIN TIME [id number] 12:54:00 Test Item Value Reference Range Interpretation Comments THROMBOPLASTIN TIME 29.9 SECONDS 26.0-35.9 N INTERPRE TATIVE PARTIAL (test code = DATA: erapeutic PTT) range: Unfractionated heparin:47 - 71 seconds Argatroban:1.5 to 3 times the basel ine PTT Coronavirus 2019 nCoV [id number] 12:27:00 Test Item Value Reference Range Interpretation Comments Coronavirus 2019 nCoV Bedside (test Negative NEGATIVE code = [id number]) CBC W/AUTO [id number] 11:51:00 Test Item Value Reference Range Interpretation Comments WHITE BLOOD CELL (test code = 7.9 x10 3/uL 4.8-10.8 N WBC) RED BLOOD CELL (test code = 4.82 x10 6/uL 4.20-5.40 N RBC) HEMOGLOBIN (test code = HGB) 13.9 g/dL 14.5-20 L HEMATOCRIT (test code = HCT) 43.3 % 37.0-47.0 N MEAN CELL VOLUME (test code = 89.8 fL 81.0-99.0 N MCV) MEAN CELL HGB (test code = MCH) 28.8 pg 27-31 N MEAN CELL HGB CONCENTRATION 32.1 G/DL 33-36.5 L (test code = MCHC) RED CELL DISTRIBUTION WIDTH 12.8 % 12.9-16.9 L (test code = RDW) PLATELET COUNT (test code = 242 150-440 N PLT) MEAN PLATELET VOLUME (test code 10.0 fL 8.9-12.4 N = MPV) NEUTROPHIL % (test code = NT%) 65.8 % 42.2-75.2 N LYMPHOCYTE % (test code = LY%) 27.3 % 20.5-51.1 N MONOCYTE % (test code = MO%) 5.2 % 1.7-9.3 N EOSINOPHIL % (test code = EO%) 1.1 % 0.0-7.0 N BASOPHIL % (test code = BA%) 0.3 % 0-2.5 N NEUTROPHIL # (test code = NT#) 5.22 x10 3/uL 1.80-7.70 N LYMPHOCYTE # (test code = LY#) 2.16 x10 3/uL 1.00-4.80 N MONOCYTE # (test code = MO#) 0.41 x10 3/uL 0.00-0.80 N EOSINOPHIL # (test code = EO#) 0.09 x10 3/uL 0.00-0.45 N BASOPHIL # (test code = BA#) 0.02 x10 3/uL 0.0-0.20 N COMPREHENSIVE METABOLIC [id number] 11:45:00 Test Item Value Reference Range Interpretation Comments SODIUM (test code = 140 MMOL/L 136-143 N NA) POTASSIUM (test 4.5 MMOL/L 3.5-5.1 N code = K) CHLORIDE (test code 101 MMOL/L 98-107 N = CL) CARBON DIOXIDE 23 mmol/L 24-31 L (test code = CO2) GLUCOSE (test code 94 mg/dL 70-104 N = GLU) BLOOD UREA NITROGEN 9.1 MG/DL 7.0-21.0 N (test code = BUN) GLOMERULAR >=60 max >60 The estimated FILTRATION RATE estimate glomerular (test code = GFR) filtration rate is computed usingpatient ra ce, age (>18), sex, and serum creatinin e. If anyof the ne eded data elements a re missing the Laboratory saranya ot compute an estimation of t he glomerular filtration rate . CREATININE (test 0.8 mg/dL 0.8-1.5 N code = CREAT) TOTAL PROTEIN (test 7.5 g/dL 6.3-8.3 N code = PROT) ALBUMIN (test code 4.5 G/DL 3.5-5.0 N = ALB) CALCIUM (test code 9.8 mg/dL 8.8-10.2 N = CA) BILIRUBIN TOTAL 0.2 mg/dL 0.2-1.0 N (test code = BILT) SGOT/AST (test code 27 IU/L 10-34 N = AST) SGPT/ALT (test code 41 U/L 10-36 H = ALT) ALKALINE 75 U/L 32-104 N PHOSPHATASE (test code = ALKP)
[2019-12-22] MEDS ORDERED: DIPHENHYDRAMINE 50 MG/ML VIAL ONE (03:03)
[2019-12-22] MEDS ORDERED: NA CHLORIDE 0.9% 2,000 ML ONE (03:03)
[2019-12-22 03:29] LABS: Protime INR 1.16
[2019-12-22 03:31] LABS: Absolute Lymphocytes (CBC) 2.2 K/uL (0.7-4.9); Basophils % 0.8 % (0-1.3); Hematocrit 39.2 % (36.0-45.0); Lymphocytes % 26.2 % (15.3-44.8); MPV 8.4 fL (7.6-11.3); RBC Red Blood Cell Count 4.44 M/uL (3.86-4.86)
[2019-12-22 04:30] LABS: Urine Appearance CLEAR; Urine Blood NEGATIVE (NEG); Urine Color ORANGE; Urine Glucose NEGATIVE (NEG); Urine Protein 1+ (NEG); Urine Specific Gravity 1.025 (1.005-1.030)
[2019-12-22 05:06] LABS: Albumin 3.6 g/dL (3.4-5.0); Bilirubin Total 1.5 mg/dL (0.2-1.0); Magnesium 2.2 mg/dL (1.8-2.4); Potassium 4.1 mmol/L (3.5-5.1); Protein, Total 8.1 g/dL (6.4-8.2)
[2019-12-22 05:26] LABS: Urine Microscopic Reflex ORDER UMIC
[2019-12-22 05:27] LABS: Urine Bilirubin 2+ (NEG)
[2019-12-22 05:43] LABS: Urine Bacteria <20 /HPF (<20); Urine Culture Reflex Order NOT NEEDED; Urine RBC <5 /HPF (NONE SEEN)
[2019-12-22 05:59] LABS: Urine Blood TRACE (NEG); Urine Glucose NEGATIVE (NEG); Urine Protein 1+ (NEG); Urine Specific Gravity >1.030 (1.005-1.030)
--- NOTE | 2019-12-22 06:15 | ER ---
Nurse's Notes [facility] Name: Cyndie Soilz Age: 34 yrs Sex: Female : 1985 Arrival Date: 12/22/2019 Time: 00:21 Bed 13 Private MD: Diagnosis: Rhabdomyolysis Presentation: 12/21 00:31 Chief complaint: Patient states: Pt had a gastric laparoscopy on the at [facility] and was discharge yesterday the . Tonight patient started having intensive generalize pain. Patient feel like pain is all over the body and was not even able to lift her arms because they are painfully. Coronavirus screen: Proceed with normal triage. Ebola Screen: Patient negative for fever greater than or equal to 101.5 degrees Fahrenheit, and additional compatible Ebola Virus Disease symptoms Patient denies exposure to infectious person. Patient denies travel to an Ebola-affected area in the 21 days before illness onset. Initial Sepsis Screen: Does the patient meet any 2 criteria? No. Patient's initial sepsis screen is negative. Does the patient have a suspected source of infection? No. Patient's initial sepsis screen is negative. Risk Assessment: Do you want to hurt yourself or someone else? Patient reports no desire to harm self or others. Onset of symptoms was December 21, 2019 at 06:00. 00:31 Method Of Arrival: Wheelchair ao 00:31 Acuity: SHANIKA 3 ao Triage Assessment: 00:40 General: Appears in no apparent distress. uncomfortable, Behavior is cooperative, ao appropriate for age. Pain: Complains of pain in abdomen and general pain Pain currently is 10 out of 10 on a pain scale. EENT: No signs and/or symptoms were reported regarding the EENT system. Neuro: Level of Consciousness is awake, alert, obeys commands, Oriented to person, place, time, situation, Appropriate for age Weakness. Musculoskeletal: Circulation, motion, and sensation intact. Range of motion: limited in all extremities. 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 - Social history:: Smoking status: Patient reports use of chewing tobacco. Patient denies any tobacco usage or history of. Patient/guardian denies using alcohol, street drugs, IV drugs. Screenin:34 Abuse screen: Denies threats or abuse. Denies injuries from another. Nutritional ao screening: No deficits noted. Tuberculosis screening: No symptoms or risk factors identified. Fall Risk None identified. Assessment: 02:30 General: Appears in no apparent distress. uncomfortable, Behavior is calm, cooperative, ao appropriate for age. Pain: Complains of pain in General pain Pain currently is 8 out of 10 on a pain scale. Neuro: Level of Consciousness is awake, alert, obeys commands, Oriented to person, place, time, situation, Appropriate for age Moves all extremities. Full function Speech is normal, Facial symmetry appears normal. Cardiovascular: Heart tones S1 S2 Capillary refill < 3 seconds Patient's skin is warm and dry. Respiratory: Airway is patent Respiratory effort is even, unlabored, Respiratory pattern is regular, symmetrical. GI: Abdomen is obese. : No signs and/or symptoms were reported regarding the genitourinary system. EENT: No signs and/or symptoms were reported regarding the EENT system. Derm: Skin is intact, Skin is dry, Skin is pink, warm \T\ dry. Skin temperature is warm. Musculoskeletal: Circulation, motion, and sensation intact. Range of motion: intact in all extremities. 03:34 Reassessment: Patient appears in no apparent distress at this time. Patient and/or ao family updated on plan of care and expected duration. Pain level reassessed. Waiting on lab work. 05:48 Reassessment: Patient appears in no apparent distress at this time. Patient and/or ao family updated on plan of care and expected duration. Pain level reassessed. Pt updated in POC. Per Dr Ramirez patient to stay in the hospital. 08:15 Reassessment: pt reports pain 05/19, CONSTANTIN Linares notified, received new verbal orders. em 09:20 Reassessment: Patient appears in no apparent distress at this time. Patient and/or em family updated on plan of care and expected duration. Pain level reassessed. Patient states feeling better. Patient states symptoms have improved. Vital Signs: 00:31 Pulse 84; Resp 20; Temp 97.9(TE); Pulse Ox 95% ; Weight 146.06 kg; Height 5 ft. 7 in. ao (170.18 cm); Pain 9/10; 03:31 BP 137 / 81; Pulse 80; Resp 14; Temp 99.3(O); Pulse Ox 100% on R/A; ao 04:30 BP 120 / 60; Pulse 84; Resp 16; Pulse Ox 100% on R/A; ao 05:40 BP 122 / 69; Pulse 80; Resp 18; Pulse Ox 96% on R/A; ao 09:18 BP 132 / 68; Pulse 71; Resp 18; Temp 98.1; Pulse Ox 95% on R/A; Pain 6/10; em 00:31 Body Mass Index 50.43 (146.06 kg, 170.18 cm) ao ED Course: 00:21 Patient arrived in ED. cf2 00:37 Triage completed. ao 00:39 Arm band placed on right wrist. Patient placed in waiting room, in a wheelchair, ao Patient notified of wait time. 01:53 Slava Ramirez MD is Attending Physician. 7 02:00 Inserted saline lock: 20 gauge in right antecubital area, using aseptic technique. ao Blood collected. 02:53 Rasta Coronado RN is Primary Nurse. ao 03:34 Patient has correct armband on for positive identification. Pulse ox on. NIBP on. ao 05:10 Notified ED physician of a critical lab result(s). CPK [id number]. lp1 06:13 Prieto Bernal is Hospitalizing Provider. 7 07:06 Report given to BRANDT Aden. ao 07:22 Abdomen In Process Unspecified. EDMS 10:18 No provider procedures requiring assistance completed. Patient admitted, IV remains in em place. Administered Medications: 03:00 Drug: NS 0.9% 1000 ml Route: IV; Rate: 125 ml/hr; Site: right antecubital; ao 03:00 Drug: NS 0.9% 1000 ml Route: IV; Rate: 1000 ml; Site: right antecubital; ao 03:00 Drug: Benadryl 25 mg Route: IVP; Site: right antecubital; ao 04:05 Follow up: Response: No adverse reaction ao 05:32 Drug: NS 0.9% 1000 ml Route: IV; Rate: 1000 ml; Site: right antecubital; lp1 09:21 Follow up: IV Status: Infusion continued upon admission em 08:19 Drug: fentaNYL (PF) 50 mcg Route: IVP; Site: right antecubital; em 09:12 Follow up: Response: No adverse reaction; Marked relief of symptoms; Pain is decreased; em RASS: Alert and Calm (0) Outcome: 06:14 Decision to Hospitalize by Provider. [facility] 10:18 Admitted to Med/surg accompanied by tech, via wheelchair, room 218, with chart, Report em called to BRANDT Collado 10:18 Condition: good 10:18 Instructed on the need for admit, Demonstrated understanding of instructions. 10:24 Patient left the ED. em Signatures: Dispatcher [employer] Markie Batista RN RN em Sharyn Cunningham RN RN 1 Rasta Coronado RN RN ao Luz Granado 2 Slava Ramirez MD MD 7 Corrections: (The following items were deleted from the chart) 03:35 03:31 BP 137 / 81; Pulse 80bpm; Resp 100bpm; Pulse Ox 100% RA; Temp 99.3F Oral; ao ao
--- NOTE | 2019-12-22 06:15 | EDPHYS ---
Physician Documentation [facility] Name: Cyndie Soliz Age: 34 yrs Sex: Female : 1985 Arrival Date: 12/22/2019 Time: 00:21 Bed 13 Private MD: ED Physician Slava Ramirez HPI: 12/21 04:07 This 34 yrs old Female presents to ER via Wheelchair with complaints of mh7 generalized pain. 04:08 Patient reports having generalized pain and weakness for the past 2 days. She states mh7 that symptoms started after she was discharged home from another facility following gastric sleeve surgery.. Onset: The symptoms/episode began/occurred 2 day(s) ago. Severity of symptoms: At their worst the symptoms were moderate yesterday, in the emergency department the symptoms are unchanged. 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 - Social history:: Smoking status: Patient reports use of chewing tobacco. Patient denies any tobacco usage or history of. Patient/guardian denies using alcohol, street drugs, IV drugs. ROS: 04:08 Constitutional: Negative for fever, chills, and weight loss, Eyes: Negative for injury, mh7 pain, redness, and discharge, ENT: Negative for injury, pain, and discharge, Neck: Negative for injury, pain, and swelling, Cardiovascular: Negative for chest pain, palpitations, and edema, Respiratory: Negative for shortness of breath, cough, wheezing, and pleuritic chest pain, Abdomen/GI: Negative for abdominal pain, nausea, vomiting, diarrhea, and constipation, Back: Negative for injury and pain, : Negative for injury, bleeding, discharge, and swelling, MS/Extremity: Negative for injury and deformity, Skin: Negative for injury, rash, and discoloration, Psych: Negative for depression, anxiety, suicide ideation, homicidal ideation, and hallucinations, Allergy/Immunology: Negative for hives, rash, and allergies, Endocrine: Negative for neck swelling, polydipsia, polyuria, polyphagia, and marked weight changes, Hematologic/Lymphatic: Negative for swollen nodes, abnormal bleeding, and unusual bruising. Exam: 04:08 Constitutional: This is a well developed, well nourished patient who is awake, alert, mh7 and in no acute distress. Head/Face: Normocephalic, atraumatic. Eyes: Pupils equal round and reactive to light, extra-ocular motions intact. Lids and lashes normal. Conjunctiva and sclera are non-icteric and not injected. Cornea within normal limits. Periorbital areas with no swelling, redness, or edema. ENT: Nares patent. No nasal discharge, no septal abnormalities noted. Tympanic membranes are normal and external auditory canals are clear. Oropharynx with no redness, swelling, or masses, exudates, or evidence of obstruction, uvula midline. Mucous membranes moist. Neck: Trachea midline, no thyromegaly or masses palpated, and no cervical lymphadenopathy. Supple, full range of motion without nuchal rigidity, or vertebral point tenderness. No Meningismus. Chest/axilla: Normal chest wall appearance and motion. Nontender with no deformity. No lesions are appreciated. Cardiovascular: Regular rate and rhythm with a normal S1 and S2. No gallops, murmurs, or rubs. Normal PMI, no JVD. No pulse deficits. Respiratory: Lungs have equal breath sounds bilaterally, clear to auscultation and percussion. No rales, rhonchi or wheezes noted. No increased work of breathing, no retractions or nasal flaring. Abdomen/GI: Soft, non-tender, with normal bowel sounds. No distension or tympany. No guarding or rebound. No evidence of tenderness throughout. Back: No spinal tenderness. No costovertebral tenderness. Full range of motion. Skin: Warm, dry with normal turgor. Normal color with no rashes, no lesions, and no evidence of cellulitis. MS/ Extremity: Pulses equal, no cyanosis. Neurovascular intact. Full, normal range of motion. Neuro: Awake and alert, GCS 15, oriented to person, place, time, and situation. Cranial nerves II-XII grossly intact. Motor strength 5/5 in all extremities. Sensory grossly intact. Cerebellar exam normal. Normal gait. Psych: Awake, alert, with orientation to person, place and time. Behavior, mood, and affect are within normal limits. Vital Signs: 00:31 Pulse 84; Resp 20; Temp 97.9(TE); Pulse Ox 95% ; Weight 146.06 kg; Height 5 ft. 7 in. ao (170.18 cm); Pain 9/10; 03:31 BP 137 / 81; Pulse 80; Resp 14; Temp 99.3(O); Pulse Ox 100% on R/A; ao 04:30 BP 120 / 60; Pulse 84; Resp 16; Pulse Ox 100% on R/A; ao 05:40 BP 122 / 69; Pulse 80; Resp 18; Pulse Ox 96% on R/A; ao 09:18 BP 132 / 68; Pulse 71; Resp 18; Temp 98.1; Pulse Ox 95% on R/A; Pain 6/10; em 00:31 Body Mass Index 50.43 (146.06 kg, 170.18 cm) ao MDM: 01:54 Patient medically screened. [facility] 06:11 Differential Diagnosis sepsis, electrolyte abnormality, rhabdomyolysis. Data reviewed: [facility] vital signs, nurses notes, lab test result(s). Data interpreted: Pulse oximetry: on room air is 96 %. Interpretation: normal. Counseling: I had a detailed discussion with the patient and/or guardian regarding: the historical points, exam findings, and any diagnostic results supporting the discharge/admit diagnosis, lab results, radiology results, the need for further work-up and treatment in the hospital. 12/21 02:52 Order name: CPK [facility] 12/21 02:52 Order name: UA [facility] 12/21 02:57 Order name: Urinalysis; Complete Time: 06:09 EDMS 12/21 03:03 Order name: Basic Metabolic Panel; Complete Time: 05:43 [facility] 12/21 03:03 Order name: CBC with Diff; Complete Time: 04:36 [facility] 12/21 03:03 Order name: LFT's; Complete Time: 05:43 [facility] 12/21 03:03 Order name: Magnesium; Complete Time: 05:43 [facility] 12/21 03:03 Order name: NT PRO-BNP; Complete Time: 05:43 [facility] 12/21 03:03 Order name: PT-INR; Complete Time: 04:36 [facility] 12/21 03:04 Order name: Test, Serum; Complete Time: 04:36 7 12/21 03:20 Order name: Creatine Phosphokinase; Complete Time: 05:43 EDMS 12/21 04:06 Order name: Urine Dipstick--Ancillary (enter results); Complete Time: 06:09 [facility] 12/21 04:06 Order name: Urine --Ancillary (enter results); Complete Time: 06:09 [facility] 12/21 03:03 Order name: IV Saline Lock; Complete Time: 03:18 [facility] 12/21 03:03 Order name: Labs collected and sent; Complete Time: 03:19 [facility] 12/21 03:03 Order name: O2 Per Protocol; Complete Time: 03:08 [facility] 12/21 03:03 Order name: O2 Sat Monitoring; Complete Time: 03:08 [facility] 12/21 05:27 Order name: Urine Microscopic Only; Complete Time: 06:09 EDMS 12/21 07:22 Order name: Abdomen ; Complete Time: 08:29 EDMS Administered Medications: 03:00 Drug: NS 0.9% 1000 ml Route: IV; Rate: 125 ml/hr; Site: right antecubital; ao 03:00 Drug: NS 0.9% 1000 ml Route: IV; Rate: 1000 ml; Site: right antecubital; ao 03:00 Drug: Benadryl 25 mg Route: IVP; Site: right antecubital; ao 04:05 Follow up: Response: No adverse reaction ao 05:32 Drug: NS 0.9% 1000 ml Route: IV; Rate: 1000 ml; Site: right antecubital; lp1 09:21 Follow up: IV Status: Infusion continued upon admission em 08:19 Drug: fentaNYL (PF) 50 mcg Route: IVP; Site: right antecubital; em 09:12 Follow up: Response: No adverse reaction; Marked relief of symptoms; Pain is decreased; em RASS: Alert and Calm (0) Disposition: 12/22/19 06:14 Hospitalization ordered by Prieto Bernal for Inpatient Admission. Preliminary diagnosis is Rhabdomyolysis. - Bed requested for Telemetry/MedSurg (Inpatient). - Status is Inpatient Admission. em - Condition is Stable. - Problem is new. - Symptoms have improved. Signatures: Dispatcher [employer] EDRosangela Mcclendon Edgar, RN Sharyn Velazco RN RN lp1 Vijay Ortiz PA PA [id number] Rasta Coronado RN RN Slava Quick MD MD 7 Corrections: (The following items were deleted from the chart) 03:20 02:57 Creatine Phosphokinase ordered. EDGA EDMS 07:22 06:48 Abdomen Pelvis W Con+CT.RAD.BRZ ordered. EDGA EDMS 07:30 06:41 Abdomen Pelvis Wo Con+CT.RAD.BRZ ordered. EDGA EDMS 09:42 06:14 Hospitalization Ordered by Prieto Bernal for Inpatient Admission. Preliminary bd diagnosis is Rhabdomyolysis. Bed requested for Telemetry/MedSurg (Inpatient). Status is Inpatient Admission. Condition is Stable. Problem is new. Symptoms have improved. mh7 10:24 09:42 12/22/2019 06:14 Hospitalization Ordered by Prieto Bernal for Inpatient em Admission. Preliminary diagnosis is Rhabdomyolysis. Bed requested for Telemetry/MedSurg (Inpatient). Status is Inpatient Admission. Condition is Stable. Problem is new. Symptoms have improved. bd
[2019-12-22] MEDS ORDERED: NA CHLORIDE 0.9% 1,000 ML ONE (08:15)
[2019-12-22] MEDS ORDERED: FENTANYL CITR 100 MCG/2 ML ONE (08:15)
--- NOTE | 2019-12-22 08:26 | RAD REPORT ---
EXAM DESCRIPTION: CT - Abdomen Pelvis Wo Contrast - 12/22/2019 7:22 am CLINICAL HISTORY: Abdominal pain. ABD PAIN COMPARISON: Transvaginal Study Probe dated 12/07/2019; Pelvis Complete dated 12/07/2019 TECHNIQUE: CT imaging of the abdomen and pelvis was performed without contrast. Solid organ, bowel a nd vascular assessment is limited due to lack of IV and oral contrast. All CT scans are performed using dose optimization technique as appropriate and may include automated exposure control or mA/KV adjustment according to patient size. FINDINGS: Mild linear subsegmental atelectasis is present both lung bases.Postsurgical changes are p resent about the stomach. High density contrast is seen resulting in streak artifact in the stomach a nd proximal small bowel. The liver, spleen, pancreas, adrenal glands and kidneys are within normal limits for a limited non-co ntrast examination. No bowel obstruction, free air, free fluid or abscess. The appendix is normal. The osseous structures are within normal limits.Mild nonspecific soft tissue air is seen near the umb ilicus region. IMPRESSION: No acute intra-abdominal or pelvic findings. A limited non-contrast examination was performed as detailed.
[2019-12-22 10:34] VITALS: BMI 51.7
[2019-12-22] MEDS ORDERED: ACETAMINOPHEN 500 MG TAB PO PRN (10:57)
[2019-12-22] MEDS ORDERED: NA CHLORIDE 0.9% 1,000 ML IV ONE ×2 (10:58→11:28)
[2019-12-22] MEDS: MORPHINE 2 MG/ML SYR IV PRN ×2 (11:21→22:04)
[2019-12-22] MEDS: ONDANSETRON 4 MG/2 ML VIAL IV PRN ×2 (11:26→22:13)
--- NOTE | 2019-12-22 11:39 | HP ---
Date of Admission: 12/22/2019 Chief Complaint: Generalized pain. History Of Present Illness: Patient is a 34-year-old female with no significant past medical history other than morbid obesity who had gastric sleeve surgery done 2 days ago at [facility] and was discharged same day, was able to ambulate postop 4 times and however, usually requires help, but due to the pandemic, her was not with her. Patient went home, continued to have pain all over her body, especially her legs and she was hurting to move. The patient has had anesthetic before. She called the on-call doctor and was told to go to the ER. Patient came in for further evaluation. Her symptoms are constant, moderate, progressively worsening. Otherwise, denies any fevers, chills, nausea, vomiting. No chest pain. Patient's workup revealed a CK level of 42,736, creatinine was normal. Patient's UA was negative and urine test was negative. CT scan of the abdomen and pelvis showed no acute intraabdominal or pelvic findings, post-surgical changes present. Patient was then given 2 L of normal saline bolus, fentanyl and referred for admission. When seen in the ER, she was awake, alert, oriented x3, in moderate distress due to pain. Past Medical History: Morbid obesity. Surgical History: in 2017, breast reduction 2008 and gastric sleeve done 2 days ago. Allergies: NO KNOWN DRUG ALLERGIES. Medications: List reviewed. Family History: Denies any premature coronary artery disease in the family. Review of Systems: Ten-point system reviewed, negative except as per HPI. Physical Examination: Vital Signs: Temperature 97.9, heart rate 84, blood pressure 137/81, respirations 20, O2 95% on room air. General: Awake, alert, oriented x3. Morbidly obese female in moderate distress due to pain, ill-appearing. HEENT: Normocephalic, atraumatic. PERRLA, EOMI. Moist mucous membranes. Oropharynx is clear. Normal dentition. Conjunctivae anicteric. Neck: Supple. No JVD. Trachea midline CV: S1, S2. Regular rate and rhythm. Peripheral pulses present. Respiratory: Moving air well bilaterally. No wheezing or stridor. No use of accessory muscles. Gastrointestinal: Abdomen is soft, nontender, nondistended. Positive bowel sounds. No guarding or rigidity. Extremities: No clubbing, cyanosis. Trace pedal edema. No calf tenderness. Musculoskeletal: Patient has tender throughout her body with difficulty in range of motion due to pain in major joints. Skin: No rashes, normal skin turgor. Psych: Mood is okay. Affect is full. Insight and judgment are good. Laboratory Data: UA, negative nitrite, negative leukocyte esterase, less than 5 wbc's, less than 20 bacteria. Sodium 138, potassium 4.1, chloride 105, CO2 of 26, BUN 4, creatinine 0.88, glucose 103, calcium 8.7, magnesium 2.2, total bilirubin 1.5, AST 270, ALT 117. CK levels 42,736. test is negative. INR 1.16. WBC 8.4, H and H 12.8 and 39.2, platelets 251. CT scan of the abdomen shows no acute finding. Postsurgical changes present. Assessment And Plan: 34-year-old female with 1. Acute nontraumatic rhabdomyolysis, unclear etiology, may be secondary to post anesthesia effect. Kidney function is normal at this time. We will continue to monitor. Consult Nephrology. Start on IV fluids. The patient received 2 L normal saline bolus. We will continue to trend CK level. 2. Morbid obesity status post recent gastric sleeve 2 days ago at [facility]. CT scan does not show any changes in the abdomen at this time. 3. Hyperbilirubinemia likely acute phase reactant. We will monitor. 4. Elevated liver enzymes, may be secondary to fatty liver disease. The CT scan shows liver is normal with limited contrast-noncontrast study. We will continue to monitor. 5. Deep venous thrombosis prophylaxis with Lovenox. Plan: Admit patient to Med/Surg, place as inpatient. Length of stay greater than 2 midnights. /KRISS Voice ID: [id number]
[2019-12-22] MEDS: NA CHLORIDE 0.9% 1,000 ML IV SCH ×3 (13:17→21:36)
[2019-12-22] MEDS: ESTROGENS CONJUGATED PO SCH ×2 (13:45→19:45)
[2019-12-22] MEDS: ENOXAPARIN 40 MG/0.4 ML SQ SCH (16:19)
[2019-12-22 17:13] LABS: Urine Appearance CLEAR; Urine Bilirubin NEGATIVE (NEG); Urine Blood 3+ (NEG); Urine Color YELLOW; Urine Glucose NEGATIVE (NEG); Urine Protein NEGATIVE (NEG); Urine pH 5.5 (5.0-7.0)
[2019-12-22 17:20] LABS: Urine Microscopic Reflex ORDER UMIC
[2019-12-22 17:30] LABS: Barbiturates NEGATIVE (NEGATIVE); Benzodiazepines NEGATIVE (NEGATIVE); Cocaine NEGATIVE (NEGATIVE); METHAMPHETAM NEGATIVE (NEGATIVE); Methadone NEGATIVE (NEGATIVE); Phencyclidine NEGATIVE (NEGATIVE); THC Cannibis NEGATIVE (NEGATIVE)
[2019-12-22 17:56] LABS: Opiates POSITIVE (NEGATIVE)
[2019-12-22 18:07] LABS: Urine Bacteria 20-50 /HPF (<20); Urine Culture Reflex Order REFLEXED
[2019-12-22 19:58] LABS: Albumin 3.1 g/dL (3.4-5.0); Bilirubin Total 0.7 mg/dL (0.2-1.0); Magnesium 2.1 mg/dL (1.8-2.4); Potassium 3.6 mmol/L (3.5-5.1); Protein, Total 6.9 g/dL (6.4-8.2)
[2019-12-22] MEDS: buPROPion HCL 100 MG TAB PO SCH (21:34)
--- NOTE | 2019-12-22 22:24 | CON ---
Date of Consultation: 12/22/2019 Reason For Consultation: Electrolyte imbalance, rhabdomyolysis. History Of Present Illness: This is a pleasant 34-year-old female without any significant past medic al history, except of obesity. Patient undergo a gastric sleeve surgery the day before yesterday. S urgery went without any complication. After the surgery, the patient started having some generalized body ache. Patient denied any nausea, any vomiting. Patient was discharged safely, stable hemodyna mically. Patient after that been using her pain medication, as codeine, for controlling her pain, bu t her pain started getting worse. Her body ache started being more generalized on her all body inclu ding upper extremity. Patient denies any rash. No other new medication. No fever. No rash. No ch ills. Patient started having decrease in her urine output with darkness in the urine. For that reas on, came to the hospital. In the hospital, primary workup showed elevation CK of 42,000 and normal k idney function. For that reason, patient was admitted. Past Medical History: Obesity. Past Surgical History: Gastric sleeve. Family History: Positive for hypertension. Social History: Lives with family. Denies smoking. Denies drinking. Denies drug abuse. Review of Systems: Head and Neck: No red eye. No ear pain. GI: Has abdominal pain. : No polyuria. No dysuria. No hematuria. Decreased urine output with increased density of the u rine. MAINTENANCE ADVISOR: No vaginal discharge. Respiratory: No shortness of breath. Cardiovascular: No chest pain. Endocrine: No polydipsia. Skin: No rash. Past Surgical History: 1.. 2.Breast reduction. 3.Gastric sleeve. Home Medications: 1.Estrogen. 2.Bupropion. Physical Examination: General: When I saw the patient, the patient was sitting in bed. Vital Signs: Blood pressure 135/70, pulse of 80. Chest: Clear to auscultation. Heart: S1, S2. Regular. Abdomen: Mild tenderness. Multiple wound injuries for the laparoscopic surgery. Extremities: Trace edema. Neuro: Alert and oriented x3. No focal. Laboratory Data: Sodium 138, potassium 4.1, bicarb 26, BUN 4, creatinine 0.8, calcium 8.7, magnesium 2.2. WBC 8.4, H and H 12.8/39.2, platelet 251. Urinalysis; specific gravity of more than 1.030, po sitive for bilirubin, positive for ketones. Positive for blood. Assessment And Plan: 1.Rhabdomyolysis supported with CK mostly secondary to succinylcholine during the surgery for anesth esia even though we do not know what type of anesthesia or medication has been used. Patient still o n the dry side. No kidney injury. I am going to start aggressive hydration on the patient. We will bolus the patient with 2 L, then maintain her on 150 per hour of normal saline. We will follow up. I am going to go ahead and send for repeated chemistry after 4 hours from the boluses to evaluate th e electrolyte as patient is going to have more diuresis after the aggressive hydration. We need to m aintain urine pH above 6.5 and maintain a good electrolyte balance. Avoid hypophosphatemia and hypok alemia. 2.If in case after hydration, hypocalcemia develops, we are not going to replace any calcium unless if it is symptomatic. 3.Morbid obesity, status post gastric sleeve. We will follow up. Continue current monitor. 4.Marginal alkalosis secondary to contraction. We will start aggressive hydration. Thank you, Dr. Ulloa for allowing us to participate in the care of your patient. KOKO Voice ID: [id number] Report ID: [id number]
[2019-12-23] MEDS: ESTROGENS CONJUGATED PO SCH ×3 (01:07→13:45)
[2019-12-23] MEDS: NA CHLORIDE 0.9% 1,000 ML IV SCH ×2 (05:32→13:55)
[2019-12-23 06:13] LABS: Absolute Lymphocytes (CBC) 1.8 K/uL (0.7-4.9); Basophils % 0.5 % (0-1.3); Hematocrit 32.1 % (36.0-45.0); Lymphocytes % 29.6 % (15.3-44.8); MPV 8.3 fL (7.6-11.3); RBC Red Blood Cell Count 3.66 M/uL (3.86-4.86)
[2019-12-23 07:03] LABS: ALT/SGPT 84 U/L (12-78); AST/SGOT 141 U/L (15-37); Albumin 2.7 g/dL (3.4-5.0); Alkaline Phosphatase 56 U/L (45-117); BUN Blood Urea Nitrogen 4 mg/dL (7-18); Bicarbonate 27 mmol/L (21-32); Bilirubin Total 0.5 mg/dL (0.2-1.0); Glucose Level 85 mg/dL (74-106); Phosphorus 1.9 mg/dL (2.5-4.9); Potassium 3.7 mmol/L (3.5-5.1); Protein, Total 6.1 g/dL (6.4-8.2); Sodium Level 143 mmol/L (136-145)
[2019-12-23 07:05] LABS: Creatine Phosphokinase 12019 U/L (26-192)
[2019-12-23] MEDS ORDERED: POTASSIUM CL SA 10 MEQ TAB PO ONE (09:03)
[2019-12-23] MEDS ORDERED: SIMETHICONE 125 MG TAB PO PRN (09:16)
[2019-12-23 09:44] VITALS: O2SAT 97
[2019-12-23] MEDS: buPROPion HCL 100 MG TAB PO SCH (09:56)
[2019-12-23] MEDS ORDERED: CALCIUM CITRATE PO SCH ×2 (12:00→16:00)
[2019-12-23] MEDS ORDERED: D3 PO SCH ×2 (12:00→16:00)
--- NOTE | 2019-12-23 14:14 | P.PN ---
Subjective Date of Service: 12/23/19 Subjective: Improving Subjective pt with obesity admitted for Barriatric surgery , developed rhabdomylosis today no new complaints CK trending down cont IVF can be discharged if CK <93805 F/U with nephrology clinic as an OP Rhabdomyolysis possibly secondary to succinylcholine improving cont IVF Morbid obesity status post gastric sleeve. total time spent 35min Physical Examination - Vital Signs Temperature: 97.3 F Blood Pressure: 125/70 Pulse: 82 Respirations: 17 Pulse Ox (%): 99
[2019-12-23] MEDS: ENOXAPARIN 40 MG/0.4 ML SQ SCH (16:26)
[2019-12-23 18:09] VITALS: BP 114/63; TEMP 97.9
[2019-12-24] MEDS ORDERED: [UNRECOGNIZED DRUG - OTHER] PO SCH (09:00)
[2019-12-24] MEDS ORDERED: IRON PO SCH (09:00)
== END 2019-12-23 18:02 | disposition home or self-care (01) | DRG 558 ==
LOC: ER 00:16 → ERHOLD 09:22 → 2ND 10:15
PROVIDERS: ADMIT Family Medicine; ATTEND Family Medicine
DX: M62.82 Rhabdomyolysis (principal); Z68.43 Body mass index [BMI] 50.0-59.9, adult; E87.3 Alkalosis; T48.1X5A Adverse effect of skeletal muscle relaxants [neuromuscular blocking agents], initial encounter; K76.0 Fatty (change of) liver, not elsewhere classified; E66.01 Morbid (severe) obesity due to excess calories; Z98.84 Bariatric surgery status; Z79.891 Long term (current) use of opiate analgesic
CPT/HCPCS: 36415; 74176; 80048; 80053; 80069; 80076; 80307; 81003; 81015; 81025; 82550; 83735; 83880; 84443; 84703; 85025; 85610; 87086; 87088; 94760; 96361; 96374; 96375; 99285; J1200; J1650; J2270; J2405; J3010; J7030

== ENCOUNTER 2020-12-07 19:19 | Emergency (ER) | payer OTHER ==
--- OUTSIDE RECORDS SUMMARY | 2020-12-07 19:22 | XMS REPORT | Continuity of Care Document ---
:1985 Author Organization [facility] t Address [address] [place] [address] Care Team Providers Name Role Phone Nando Johnson DO Attending Clinician Doctor Unassigned, Name Attending Clinician Unavailable Marilee Fletcher Attending Clinician Payers Payer Name Policy Type Policy Number Effective Date Expiration Date S ource Problems This patient has no known problems. Allergies, Adverse Reactions, Alerts Allergy Allergy Status Severity Reaction(s) Onset Inactive Treating Comm ents Source Name Type Date Date Clinician No Known DA Active U [facility]ie 12-15 [place] s 00:00: [facility] 00 are [facility] Medications Ordered Filled Start Stop Current Ordering Indication Dosage Frequency Signature Comments Components Source Medication Medication Date Date Medication? Clinician (SIG) Name Name BuPROPion BuPROPion 2018-08 Yes Kell [address] [facility] HCl HCl -04 [facility] - [facility] Yes Kell TAKE ONE [facility] [place] [facility] - TABLET(S) [facility] BY MOUTH l ONCE A Outpati DAY. ent Clinics Procedures This patient has no known procedures. Encounters Start End Encounter Admission Attending Care Care Encounter Source Date/Time Date/Time Type Type Clinicians Facility Department ID 2020-10-30 2020-10-30 Patient Alex [facility] [id number] 00:00:00 00:00:00 Outreach Oscar PRIMARY [id number] [facility] [id number] PAVILLION [id number] 2020-09-07 2020-09-07 Refill Doctor [facility] [id number] 00:00:00 00:00:00 Unassigned, [employer] [id number] [place] [facility] [id number] MATERNAL [id number] & CHILD 107 [facility] 2020-07-25 2020-07-25 [facility] [id number] Outpat[facility] Clinics 2020-07-25 2020-07-25 [facility] [id number] [facility]00 [facility] Clin[facility] 2020-07-17 2020-07-17 [facility] [id number] [facility]00 [facility] l Outpati ent Clinics 2020-07-02 2020-07-02 [facility] [id number] 00:00:00 00:00:00 Rospolonda R [employer] [id number] REGIONAL [id number] MATERNAL [id number] & CHILD 107 [facility] 2020-04-17 2020-04-17 [facility] [id number] 08:40:00 08:40:00 [facility] 2020-04-12 2020-04-12 [facility] [id number] 10:12:18 10:46:25 Visit Sandovala R [employer]LE[employer]ELOPMENT LIBRARIAN [id number] REGIONAL [id number] MATERNAL [id number] & CHILD 107 [facility] 2020-02-20 2020-02-20 [facility] [id number] [address] 14:54:00 14:54:00 [facility] Medicine Medicine Outpati ent Clinics 2020-02-16 2020-02-16 [facility] [id number] 14:20:00 14:20:00 [facility] Medicine Outpati ent Clinics 2020-02-14 2020-02-14 [facility] [id number] 13:49:00 13:49:00 [facility] Medicine l Medicine Outpati ent Clinics 2020-01-13 2020-01-13 [facility] [id number] 10:00:00 10:00:00 [facility] Medicine Outpati ent Clinics 2019-11-30 2019-11-30 [facility] [id number] 15[facility]55:00 15:55:00 [facility] Medicine Outpati ent Clinics 2019-11-26 2019-11-26 [facility] [id number] 13:26:00 13:26:00 [facility] Medicine Outpati ent Clinics 2019-11-25 2019-11-25 [facility] [id number] 13:46:00 13:46:00 [facility] Medicine Outpati ent Clinics 2019-10-14 2019-10-14 [facility] [id number] 08:00:00 08:00:00 [facility] Medicine Outpati ent Clinics 2019-09-19 2019-09-19 [facility] [id number] 13:00:00 13:00:00 [facility] Medicine Outpati ent Clinics 2019-08-22 2019-08-22 [facility] [id number] 14:00:00 14:00:00 [facility] ent Clinics 2019-07-11 2019-07-11 [facility] [id number] 14:40:00 14:40:00 [facility] ent [facility] 2019-06-13 2019-06-13 [facility] [id number] 08:00:00 08:00:00 [facility] ent [facility] 2019-05-30 2019-05-30 [facility] [id number] 11:00:00 11:00:[address] [facility] Results Test Description Test Time Test Comments Results Result [facility] e Comments SURGICAL SPECIMENS 2019-12-22 13:53:00 --------RUN DATE: 12/22/19 [facility] - LAB PAGE 1 RUN TIME: 1353 Specimen Inquiry RUN USER: INTERFACE --------PATIENT: BERRY TORRES LOC: PN POD B U #: [id number] AGE/SX: 34/F ROOM: [facility] RE12/20/19REG DR: Art Allen MD : 86 BED: 1 DIS: 12/21/19 STATUS: DIS IN TLOC: -------- SPEC #: [id number] RECD: 12/20/19 STATUS: MARCIA DE JESUS #: [id number] PARI: 12/20/[address]: Art Allen MD ENTERED: 12/20/19 SP TYPE: SURG OTHR DR: No Primary or Family PhysicianORDERED: PATHGM5, PATH SPEC, H E STAIN, IHC AB STAIN I HISTOLOGY: TISSUE ID BLK PCS GERALDO LEV / PROCEDURE DISPOSITION ____ ___ ___ ___ ___ STOMACH RESECT A 1 1 TISSUES: A. STOMACH SUBTOTAL RESECTION - Partial Stomach CLINICAL HISTORY Morbid Obesity FINAL DIAGNOSIS A-STOMACH, PARTIAL GASTRECTOMY: - Portion of stomach with oxyntic type gastric mucosa with mild chronic gastritis. - Negative for H. pylori organisms (H. pylori immunostain). GROSS DESCRIPTION A-PARTIAL STOMACH: Portion of stomach which measures 20 x 4.4 x 2.5 cm. The serosal surface is unremarkable. The specimen is sectioned. The mucosa and wall are unremarkable. No lesions or masses are identified grossly. Paper Inspector sections are submitted in a single cassette. [facility]/th MICROSCOPIC DESCRIPTION Microscopic performed. -------- Signed SIGNATURE ON FILE BeachIdalmis MD 12/22/19 [id number] -------- END OF REPORT BASIC METABOLIC PANEL 2019-12-21 06:47:00 Test Item [...] code = CA) 9.0 mg/dL 8.8-10.2 N [id number] 06:47:00 Test Item Value Reference Range Interpretation Comments PHOSPHOROUS (test code = PHOS) 3.4 mg/dL 2.7-4.5 N [id number] 06:47:00 Test Item Value Reference Range Interpretation Comments MAGNESIUM (test code = MAG) 2.2 mg/dL 1.4-2.6 N CBC W/AUTO [id number] 06:19:00 Test Item Value Reference Range Interpretation [...] 0.02 x10 3/uL 0.0-0.20 N UR HCG [id number] 10:27:00 Test Item Value Reference Range Interpretation Comments UR HCG QUAL (test code = HCGQLU) NEGATIVE NEGATIVE PROTHROMBIN [id number] 12:54:00 Test Item Value Reference Range Interpretation [...] 2.5-3.5recurren t systemic emboli sm. THROMBOPLASTIN TIME [id number] 12:54:00 Test Item Value Reference Range Interpretation Comments THROMBOPLASTIN TIME 29.9 SECONDS 26.0-35.9 N INTERPRE TATIVE PARTIAL (test code = : erapeutic PTT) range: Unfractionated heparin:47 - 71 seconds Argatroban:1.5 to 3 times the basel ine PTT Coronavirus 2019 nCoV [id number] 12:27:00 Test Item Value Reference Range Interpretation Comments Coronavirus 2019 nCoV Bedside (test Negative NEGATIVE code = [id number]) CBC W/AUTO [id number] 11:51:00 Test Item Value Reference Range Interpretation [...] 0.02 x10 3/uL 0.0-0.20 N COMPREHENSIVE METABOLIC [id number] 11:45:00 Test Item Value Reference Range Interpretation [...]
[2020-12-07 20:03] LABS: Urine Blood Negative (Negative); Urine Glucose Negative (Negative); Urine Protein Negative (Negative); Urine Specific Gravity 1.025 (1.005-1.030); Urine pH 5.5 (5.0-7.0)
[2020-12-07 20:19] LABS: Urine Specific Gravity/Preg 1.025 (1.005-1.030)
[2020-12-07] MEDS ORDERED: ONDANSETRON 4 MG/2 ML VIAL ONE ×2 (20:29→23:29)
[2020-12-07] MEDS ORDERED: FAMOTIDINE 20 MG/2 ML VIAL IV ONE (20:29)
[2020-12-07] MEDS ORDERED: MORPHINE 4 MG/ML SYR ONE ×2 (20:29→23:29)
[2020-12-07] MEDS ORDERED: NA CHLORIDE 0.9% 1,000 ML ONE (20:30)
[2020-12-07 20:34] LABS: Absolute Lymphocytes (CBC) 1.5 K/uL (0.7-4.9); Basophils % 0.3 % (0-1.3); Hematocrit 40.3 % (36.0-45.0); Lymphocytes % 24.3 % (15.3-44.8); MPV 8.6 fL (7.6-11.3); RBC Red Blood Cell Count 4.68 M/uL (3.86-4.86)
--- NOTE | 2020-12-07 20:46 | RAD REPORT ---
EXAM DESCRIPTION: US - Abdomen Exam Limited - 12/07/2020 8:37 pm CLINICAL HISTORY: Abdominal pain. COMPARISON: None. FINDINGS: Multiple gallstones. Gallbladder wall is borderline thickened. Common bile duct measures 8 millimeters IMPRESSION: Cholelithiasis Borderline gallbladder wall thickening Mild dilatation of the common bile duct may indicate a nonvisualized stone within the duct
[2020-12-07 20:47] LABS: Albumin 3.4 g/dL (3.4-5.0); Bilirubin Direct 1.2 mg/dL (0-0.2); Bilirubin Total 1.4 mg/dL (0.2-1.0); Potassium 4.3 mmol/L (3.5-5.1); Protein, Total 7.6 g/dL (6.4-8.2)
[2020-12-07 21:55] LABS: Barbiturates NEGATIVE (NEGATIVE); Benzodiazepines NEGATIVE (NEGATIVE); Cocaine NEGATIVE (NEGATIVE); METHAMPHETAM NEGATIVE (NEGATIVE); Methadone NEGATIVE (NEGATIVE); Opiates NEGATIVE (NEGATIVE); Phencyclidine NEGATIVE (NEGATIVE); THC Cannibis NEGATIVE (NEGATIVE)
--- NOTE | 2020-12-07 23:38 | EDPHYS ---
Physician Documentation [facility] Name: Cyndie Soliz Age: 35 yrs Sex: Female : 1985 Arrival Date: 12/07/2020 Time: 19:23 Bed 25 Private MD: ED Physician Slava Ramirez HPI: 12/07 20:12 This 35 yrs old Female presents to ER via Ambulatory with complaints of mh7 Vomiting, Abdominal Pain, Chest Pain, Chills. 20:12 The patient presents with abdominal pain in the upper abdomen. Onset: The mh7 symptoms/episode began/occurred 2 day(s) ago. The symptoms radiate to back. Associated signs and symptoms: Pertinent positives: nausea and vomiting, nausea, vomiting, Pertinent negatives: anorexia, blood in stools, chest pain, constipation, diarrhea, dysuria, fever, headache, hematuria, palpitations, shortness of breath, vaginal discharge, vomiting blood. The symptoms are described as intermittent, vague, waxing/waning. Modifying factors: The symptoms are alleviated by hot baths. the symptoms are aggravated by food, touching the area. Severity of pain: At its worst the pain was moderate yesterday, in the emergency department the pain is unchanged. The patient has experienced similar episodes in the past, multiple times. States intermittent episodes of abdominal pain, nausea, vomiting, diarrhea since having gastric sleeve surgery one year ago.. 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 - Social history:: Smoking status: Patient denies any tobacco usage or history of. ROS: 20:12 Eyes: Negative for injury, pain, redness, and discharge, ENT: Negative for injury, mh7 pain, and discharge, Neck: Negative for injury, pain, and swelling, Cardiovascular: Negative for chest pain, palpitations, and edema, Respiratory: Negative for shortness of breath, cough, wheezing, and pleuritic chest pain, : Negative for injury, bleeding, discharge, and swelling, MS/Extremity: Negative for injury and deformity, Skin: Negative for injury, rash, and discoloration, Neuro: Negative for headache, weakness, numbness, tingling, and seizure, Psych: Negative for depression, anxiety, suicide ideation, homicidal ideation, and hallucinations, Allergy/Immunology: Negative for hives, rash, and allergies, Endocrine: Negative for neck swelling, polydipsia, polyuria, polyphagia, and marked weight changes, Hematologic/Lymphatic: Negative for swollen nodes, abnormal bleeding, and unusual bruising. Exam: 20:12 Constitutional: This is a well developed, well nourished patient who is awake, alert, mh7 and in no acute distress. Head/Face: Normocephalic, atraumatic. Eyes: Pupils equal round and reactive to light, extra-ocular motions intact. Lids and lashes normal. Conjunctiva and sclera are non-icteric and not injected. Cornea within normal limits. Periorbital areas with no swelling, redness, or edema. Neck: Trachea midline, no thyromegaly or masses palpated, and no cervical lymphadenopathy. Supple, full range of motion without nuchal rigidity, or vertebral point tenderness. No Meningismus. Chest/axilla: Normal chest wall appearance and motion. Nontender with no deformity. No lesions are appreciated. Cardiovascular: Regular rate and rhythm with a normal S1 and S2. No gallops, murmurs, or rubs. Normal PMI, no JVD. No pulse deficits. Respiratory: Lungs have equal breath sounds bilaterally, clear to auscultation and percussion. No rales, rhonchi or wheezes noted. No increased work of breathing, no retractions or nasal flaring. 20:12 Back: No spinal tenderness. No costovertebral tenderness. Full range of motion. Skin: Warm, dry with normal turgor. Normal color with no rashes, no lesions, and no evidence of cellulitis. MS/ Extremity: Pulses equal, no cyanosis. Neurovascular intact. Full, normal range of motion. Neuro: Awake and alert, GCS 15, oriented to person, place, time, and situation. Cranial nerves II-XII grossly intact. Motor strength 5/5 in all extremities. Sensory grossly intact. Cerebellar exam normal. Normal gait. Psych: Awake, alert, with orientation to person, place and time. Behavior, mood, and affect are within normal limits. 20:12 Abdomen/GI: Inspection: obese Bowel sounds: normal, in all quadrants, Palpation: moderate abdominal tenderness, in the epigastric area, right upper quadrant and left upper quadrant, mass, is not appreciated, rebound tenderness, is not appreciated, voluntary guarding, is not appreciated, involuntary guarding, is not appreciated, no appreciated organomegaly, Rectal exam: the exam is deferred, because of patient request, Indicators: McBurney's point is not tender, Cortez's sign is negative, Rovsing's sign is negative, Obturator sign is negative, Psoas sign is negative, Liver: no appreciated palpable abnormalities, Hernia: not appreciated. Vital Signs: 19:34 BP 126 / 98; Pulse 69; Resp 19; Temp 97.7; Pulse Ox 95% on R/A; Weight 104.33 kg; ea Height 5 ft. 8 in. (172.72 cm); Pain 10/10; 20:30 BP 124 / 79; Pulse 51; Resp 18; Pulse Ox 100% ; Pain 5/10; cr4 22:15 BP 108 / 61; Pulse 57; Resp 17; Temp 98.5; Pulse Ox 100% ; Pain 3/10; cr4 23:15 BP 125 / 84; Pulse 58; Resp 17; Pulse Ox 100% ; Pain 7/10; cr4 12/08 00:00 BP 114 / 80; Pulse 64; Resp 17; Temp 97.8; Pulse Ox 100% ; Pain 3/10; cr4 12/07 19:34 Body Mass Index 34.97 (104.33 kg, 172.72 cm) ea MDM: 12/07 23:33 Differential diagnosis: bowel obstruction, cholecystitis, Cholelithiasis, mh7 diverticulitis, gastritis, gastroesophageal reflux disease, non-specific abd pain, pancreatitis, Peptic Ulcer Disease, urinary tract infection. Data reviewed: vital signs, nurses notes, old medical records, lab test result(s), cardiac enzymes, CBC, electrolytes, urinalysis, EKG, radiologic studies, CT scan, ultrasound. Data interpreted: Pulse oximetry: on room air is 100 %. Interpretation: normal. Counseling: I had a detailed discussion with the patient and/or guardian regarding: the historical points, exam findings, and any diagnostic results supporting the discharge/admit diagnosis, lab results, radiology results. Counseling: I had a detailed discussion with the patient and/or guardian regarding: the need to transfer to another facility, [facility] does not immediately have the required specialist. Response to treatment: the patient's symptoms have markedly improved after treatment. Physician consultation: Dylan Rodas MD regarding patient's condition, Recommended transfer for possible choledochitis since no GI doctor available here. Refusal of service: The patient/guardian displays adequate decision making capability and despite a detailed discussion of alternatives, benefits, risks, and consequences refuses: Transfer. 23:38 Patient medically screened. [facility] 12/07 19:56 Order name: Basic Metabolic Panel [facility] 12/07 19:56 Order name: CBC with Diff [facility] 12/07 19:56 Order name: Hepatic Function [facility] 12/07 19:56 Order name: Lipase [facility] 12/07 20:03 Order name: Urine Dipstick-Ancillary; Complete Time: 20:35 [facility] 12/07 20:10 Order name: Urine --Ancillary (enter results) [facility] 12/07 20:19 Order name: Urine --Ancillary [facility] 12/07 20:47 Order name: Basic Metabolic Panel [facility] 12/07 20:47 Order name: Liver (Hepatic) Function [facility] 12/07 20:47 Order name: Lipase [facility] 12/07 20:49 Order name: CBC with Automated Diff [facility] 12/07 21:08 Order name: Troponin (emerg Dept Use Only) [facility] 12/07 21:09 Order name: UDS [facility] 12/07 21:11 Order name: CPK [facility] 12/07 19:56 Order name: IV Saline Lock; Complete Time: 20:25 [facility] 12/07 19:56 Order name: Labs collected and sent; Complete Time: 20:26 [facility] 12/07 19:56 Order name: Urine Dipstick-Ancillary (obtain specimen); Complete Time: 20:03 [facility] 12/07 19:56 Order name: Urine Test (obtain specimen); Complete Time: 20:11 [facility] 12/07 19:57 Order name: US Abdomen Limited [facility] 12/07 20:46 Order name: US [facility] 12/07 21:07 Order name: CT Abd/Pelvis - IV Contrast Only [facility] 12/07 21:56 Order name: Urine Drug Screen [facility] 12/07 21:58 Order name: Creatine Phosphokinase [facility] 12/07 21:59 Order name: Troponin (Emerg Dept Use Only) [facility] 12/07 19:57 Order name: EKG - Nurse/Tech; Complete Time: 21:28 mh7 Administered Medications: 20:25 Drug: NS 0.9% 1000 ml Route: IV; Rate: 1000 ml; Site: left antecubital; kg 21:14 Follow up: IV Status: Completed infusion; IV Intake: 1000ml cr4 20:25 Drug: morphine 4 mg Route: IVP; Site: left antecubital; kg 21:14 Follow up: Response: No adverse reaction; Pain is decreased cr4 22:00 Follow up: Response: Nausea is decreased cr4 20:25 Drug: Zofran (Ondansetron) 4 mg Route: IVP; Site: left antecubital; kg 20:26 Drug: Pepcid (famotidine) 20 mg Route: IVP; Site: left antecubital; kg 21:28 Follow up: Response: No adverse reaction cr4 21:28 Follow up: Response: No adverse reaction cr4 23:22 Drug: morphine 4 mg Route: IVP; Site: left antecubital; cr4 05 00:14 Follow up: Response: No adverse reaction; Pain is decreased cr4 12/07 23:22 Drug: Zofran (Ondansetron) 4 mg Route: IVP; Site: left antecubital; cr4 05 00:14 Follow up: Response: No adverse reaction; Pain is decreased cr4 Disposition: 12/07/20 23:38 Discharged to Home. Impression: Cholelithiasis. - Condition is Stable. - Prescriptions for Zofran ODT 4 mg Oral tablet,disintegrating - place 1 tablet by TRANSLINGUAL route every 8 hours As needed; 10 tablet. Bentyl 20 mg Oral Tablet - take 1 tablet by ORAL route every 6 hours As needed; 20 tablet. Tylenol- Codeine #3 300-30 mg Oral Tablet - take 2 tablets by ORAL route every 6 hours As needed; 20 tablet. - Medication Reconciliation Form, Thank You Letter, Antibiotic Education, Prescription Opioid Use form. - Follow up: Private Physician; When: 1 - 2 days; Reason: Worsening of condition, Recheck today's complaints, Continuance of care, Re-evaluation by your physician. Follow up: Dameon, Prateek, MD; When: 1 - 2 days; Reason: Worsening of condition, Recheck today's complaints. Follow up: Dylan Rodas MD; When: 1 - 2 days; Reason: Worsening of condition, Recheck today's complaints. - Problem is an acute exacerbation. - Symptoms have improved. Signatures: Dispatcher [employer] EDMI Ayesha Hartley RN RN cr4 Jennyfer Lake RN RN ea Holmes, Maurice, MD MD mh7 Alana Greer kg Corrections: (The following items were deleted from the chart) 00:18 12/07 23:38 12/07/2020 23:38 Discharged to Home. Impression: Cholelithiasis. Condition cr4 is Stable. Forms are Medication Reconciliation Form, Thank You Letter, Antibiotic Education, Prescription Opioid Use. Follow up: Private Physician; When: 1 - 2 days; Reason: Worsening of condition, Recheck today's complaints, Continuance of care, Re-evaluation by your physician. Follow up: Prateek Xiao; When: 1 - 2 days; Reason: Worsening of condition, Recheck today's complaints. Follow up: Dr. Dylan Rodas; When: 1 - 2 days; Reason: Worsening of condition, Recheck today's complaints. Problem is an acute exacerbation. Symptoms have improved. mh7
--- NOTE | 2020-12-07 23:38 | ER ---
Nurse's Notes [facility] Name: Cyndie Soliz Age: 35 yrs Sex: Female : 1985 Arrival Date: 12/07/2020 Time: 19:23 Bed 25 Private MD: Diagnosis: Cholelithiasis Presentation: 12/07 19:34 Chief complaint: Patient states: Reports she has been having abdominal pain and ea vomiting. Pt reports the pain today has been the worst it has ever been. Coronavirus screen: At this time, the client does not indicate any symptoms associated with coronavirus-19. Ebola Screen: No symptoms or risks identified at this time. Initial Sepsis Screen: Does the patient meet any 2 criteria? No. Patient's initial sepsis screen is negative. Does the patient have a suspected source of infection? No. Patient's initial sepsis screen is negative. Risk Assessment: Do you want to hurt yourself or someone else? Patient reports no desire to harm self or others. Onset of symptoms was December 07, 2020. 19:34 Method Of Arrival: Ambulatory ea 19:34 Acuity: SHANIKA 3 ea Triage Assessment: 19:38 General: Appears uncomfortable, Behavior is appropriate for age. Pain: Complains of ea pain in right upper quadrant and left upper quadrant Pain radiates to back. GI: Reports nausea, vomiting. 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 - Social history:: Smoking status: Patient denies any tobacco usage or history of. Screenin:38 Abuse screen: Denies threats or abuse. Nutritional screening: No deficits noted. ea Tuberculosis screening: No symptoms or risk factors identified. Fall Risk None identified. Assessment: 19:54 General: Appears uncomfortable, Behavior is calm, cooperative, appropriate for age. cr4 Pain: Complains of pain in epigastric area and back, shoulder blades Pain radiates to lower back Pain currently is 10 out of 10 on a pain scale. Quality of pain is described as aching. Neuro: No deficits noted. 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 Cardiovascular: Heart tones S1 S2 Capillary refill < 3 seconds Patient's skin is warm and dry. Rhythm is sinus bradycardia. Respiratory: No deficits noted. Airway is patent Trachea midline Respiratory effort is even, unlabored, Respiratory pattern is regular. GI: Abdomen is non-distended, Last BM was December 06, 2020. Bowel sounds present X 4 quads. Abd is soft Abdomen is tender to palpation in epigastric area, right upper quadrant and left upper quadrant Reports nausea, Patient currently denies vomiting. : Denies burning with urination, incontinence. EENT: No deficits noted. Derm: No deficits noted. Musculoskeletal: No deficits noted. 21:14 Reassessment: Patient and/or family updated on plan of care and expected duration. Pain cr4 level reassessed. Patient states feeling better. 22:10 Reassessment: Patient and/or family updated on plan of care and expected duration. Pain cr4 level reassessed. Patient is alert, oriented x 3, equal unlabored respirations, skin warm/dry/pink. 23:25 Reassessment: Patient and/or family updated on plan of care and expected duration. Pain cr4 level reassessed. Patient is alert, oriented x 3, equal unlabored respirations, skin warm/dry/pink. 12/08 00:00 Reassessment: Patient states feeling better. Patient states symptoms have improved. cr4 Vital Signs: 12/07 19:34 BP 126 / 98; Pulse 69; Resp 19; Temp 97.7; Pulse Ox 95% on R/A; Weight 104.33 kg; ea Height 5 ft. 8 in. (172.72 cm); Pain 10/10; 20:30 BP 124 / 79; Pulse 51; Resp 18; Pulse Ox 100% ; Pain 5/10; cr4 22:15 BP 108 / 61; Pulse 57; Resp 17; Temp 98.5; Pulse Ox 100% ; Pain 3/10; cr4 23:15 BP 125 / 84; Pulse 58; Resp 17; Pulse Ox 100% ; Pain 7/10; cr4 12/08 00:00 BP 114 / 80; Pulse 64; Resp 17; Temp 97.8; Pulse Ox 100% ; Pain 3/10; cr4 12/07 19:34 Body Mass Index 34.97 (104.33 kg, 172.72 cm) ea ED Course: 12/07 19:23 Patient arrived in ED. es 19:37 Triage completed. ea 19:42 Slava Ramirez MD is Attending Physician. [facility] 20:08 Alana Greer is Primary Nurse. kg 20:15 Inserted saline lock: 20 gauge in left antecubital area, using aseptic technique. kg 20:26 Patient has correct armband on for positive identification. Side rails up X 1. kg 21:28 CPK Sent. cr4 21:28 UDS Sent. cr4 21:29 Basic Metabolic Panel Sent. cr4 21:29 CBC with Diff Sent. cr4 21:29 Lipase Sent. cr4 21:29 Hepatic Function Sent. cr4 22:15 ED physician to see patient. cr4 22:15 No provider procedures requiring assistance completed. cr4 22:20 US In Process Unspecified. EDMS 22:23 CT Abd/Pelvis - IV Contrast Only In Process Unspecified. EDMS 22:56 ED physician to see patient. cr4 23:37 Prateek Xiao MD is Referral Physician. mh7 23:37 Dylan Rodas MD is Referral Physician. [facility] 12/08 00:16 IV discontinued, intact, No redness/swelling at site. cr4 00:19 Troponin (emerg Dept Use Only) Sent. cr4 Administered Medications: 12/07 20:25 Drug: NS 0.9% 1000 ml Route: IV; Rate: 1000 ml; Site: left antecubital; kg 21:14 Follow up: IV Status: Completed infusion; IV Intake: 1000ml cr4 20:25 Drug: morphine 4 mg Route: IVP; Site: left antecubital; kg 21:14 Follow up: Response: No adverse reaction; Pain is decreased cr4 22:00 Follow up: Response: Nausea is decreased cr4 20:25 Drug: Zofran (Ondansetron) 4 mg Route: IVP; Site: left antecubital; kg 20:26 Drug: Pepcid (famotidine) 20 mg Route: IVP; Site: left antecubital; kg 21:28 Follow up: Response: No adverse reaction cr4 21:28 Follow up: Response: No adverse reaction cr4 23:22 Drug: morphine 4 mg Route: IVP; Site: left antecubital; cr4 12/08 00:14 Follow up: Response: No adverse reaction; Pain is decreased cr4 12/07 23:22 Drug: Zofran (Ondansetron) 4 mg Route: IVP; Site: left antecubital; cr4 12/08 00:14 Follow up: Response: No adverse reaction; Pain is decreased cr4 Intake: 12/07 21:14 IV: 1000ml; Total: 1000ml. cr4 Outcome: 23:38 Discharge ordered by MD. chandra 12/08 00:16 Discharged to home ambulatory, significant other to black pickler. cr4 Condition: improved Discharge instructions given to patient, Instructed on discharge instructions, follow up and referral plans. medication usage, Demonstrated understanding of instructions, follow-up care, medications, Prescriptions given X 3. 00:18 Patient left the ED. cr4 Signatures: Dispatcher [employer] Caty Barahona Claudia, RN RN cr4 Jennyfer Lake RN RN ea Holmes, Maurice, MD MD [facility] Alana Greer kg
[2020-12-08 00:28] VITALS: O2SAT 100
[2020-12-08 00:33] VITALS: BP 114/80; TEMP 97.8
--- NOTE | 2020-12-08 21:21 | RAD REPORT ---
EXAM DESCRIPTION: CT - Abdomen Pelvis W Contrast - 12/08/2020 7:00 am CLINICAL HISTORY: ABD PAIN COMPARISON: 12/22/2019 TECHNIQUE: CT of the abdomen and pelvis performed following IV administration of iodinated contras t. This exam was performed according to our departmental dose-optimization program, which includes au tomated exposure control, adjustment of the mA and/or kV according to patient size and/or use of iter ative reconstruction technique. FINDINGS: Lung Bases: The visualized lung bases are clear. Bones: Minimal endplate spondylosis. Abdomen: Liver: The liver has normal size. Focal area of decreased density along the falciform ligament likely represents focal fatty infiltration. No intrahepatic biliary dilatation. Gallbladder: High-density material layering in the dependent portion of the gallbladder lumen. No per icholecystic inflammatory change. Spleen, Pancreas, and Adrenal Glands: The spleen, pancreas, and adrenal glands are unremarkable. Kidneys: No hydronephrosis or obstructing calculus. Vasculature: The aorta and IVC have normal caliber and position. The portal vein is patent. The pro ximal visceral and renal arteries are patent. Stomach: Small hiatal hernia. Other: No free intraperitoneal air. No free fluid or lymphadenopathy. Pelvis: Bladder: Urinary bladder is unremarkable. Bowel: No dilated loops of large or small bowel. Appendix: Normal appendix. Pelvis: The uterus is not enlarged. IMPRESSION: 1. High-density material layering in the dependent portion of the gallbladder compatible with gallstones. No CT evidence of acute cholecystitis. Electronically signed by: Kameron Rose 12/07/2020 10:10 PM CDT Due to temporary technical issues with the PACS/Fluency reporting system, reports are being signed by the in house radiologists without review as a courtesy to insure prompt reporting. The interpreting radiologist is fully responsible for the content of the report.
--- NOTE | 2020-12-10 09:24 | EKG ---
Test Date: 2020-12-07 Test Time: 20:45:47 Baker Test: KANG MEASUREMENT RESULTS: Intervals: Rate: 48 VT: 168 QRSD: 88 QT: 454 QTc: 405 [place]: P: 49 VT: 168 QRS: 31 T: 141 INTERPRETIVE STATEMENTS: Sinus rhythm with 2nd degree AV block with 2:[address] and T wave abnormality Abnormal ECG No previous ECG available for comparison Electronically Signed On 12-10-20 09:17:48 CDT by Graeme Smart
== END 2020-12-08 00:18 | disposition home or self-care (01) ==
LOC: ER 19:19
DX: K80.20 Calculus of gallbladder without cholecystitis without obstruction (principal); Z98.84 Bariatric surgery status
CPT/HCPCS: 96361; 93005; 85025; 80048; 36415; 82550; 81025; 80076; 80307 ×8; 81003; 84484; 83690; 74177; 76705; 96375; 96374; 99284; Q9967; J7030; J2405 ×2

== ENCOUNTER 2022-10-08 09:58 | Emergency (ER) | payer OTHER ==
--- OUTSIDE RECORDS SUMMARY | 2022-10-08 10:02 | XMS REPORT | Continuity of Care Document ---
:[address] [facility] t Address [address] [facility] [place] [address] Care Team Providers Name Role Phone Dorian Fletcher Primary Care Physician [phone] Kell Hope Attending Clinician Unavailable Sandra Vaughn Attending Clinician Unavailable Art Allen Attending Clinician Unavailable Elana Douglass Attending Clinician [phone] ELANA PENALOZA Attending Clinician Unavailable Samantha Cabrera Attending Clinician Doctor Unassigned, [place] Attending Clinician Unavailable SAMANTHA VASQUEZ Attending Clinician Unavailable Dorian Fletcher Attending Clinician Oscar Johnson DO Attending Clinician DORIAN SCOTT Attending Clinician Unavailable [place], Kell Shira SENIOR GEOTECHNICAL ENGINEER Admitting Clinician Unavailable Payers Payer Name Policy Type Policy Number Effective Date Expiration Date Soham Enciso [id number] 2019 [facility] 00:00:00 [facility] Problems Condition Condition Condition Status Onset Resolution Last Treating Co mments Source Name Details Category Date Date Treatment Clinician Date Well woman Well woman Disease Active U nivers exam exam 8-11 ity of 00:00: [place] 00 Medical Branch Other Other Disease Active 2016-08 Univers general general 0-11 [place] of counseling [place] and advice 00 Me dical for for Branch contracept contracept delisa delisa management management [id number] Other Problem Active Common fatigue [facility] [id number] Seasonal Problem Active Comm on allergies [facility] [id number] BMI Problem Active Common 40.0-44.9, [facility] [id number] Amenorrhea Problem Active Com mon [facility] [id number] History of Problem Active Co mmon bariatric [facility] surgery [facility] [id number] Acute Problem Active Common cystitis [facility] hematuria [facility] [id number] Morbid Problem Active Common obesity [facility] [id number] Vitamin D Problem Active Comm on deficiency [facility] Menorrhagi Menorrhagi Problem Active C ommon a a [facility] [id number] Izabel Problem Active Common albicans [facility] infection [facility] [id number] BMI Problem Active Common 39.0-39.9, [facility] adult [facility] Allergies, Adverse Reactions, Alerts Allergy Allergy Status Severity Reaction(s) Onset Inactive Treating Comm ents Source Name Type Date Date Clinician No Known DA Active U [facility]ie 12-15 [facility] 00:00: [facility] No Known DA Active U [facility] Allergie 12-15 [facility] 00:00: [facility] Social History Social Habit Start Date Stop Date Quantity Comments Source History SDOH University o f Alcohol Frequency [place] M edical [facility] History SDOH University o f Alcohol Std [place] Medical Drinks Branch History SDOH University o f Alcohol Binge [place] [facility] al [facility] History of [facility] - Tobacco Use [facility] Sex Assigned At [facility] - [facility] Exposure to 2022-03-10 2022-03-20 Not sure [facility] SARS-CoV-2 00:00:00 13:42:00 [facility] (event) [place] Alcohol intake 2022-03-20 2022-03-20 .14 /d University 00:00:00 00:00:00 [facility] Alcohol Comment 2021-03-04 2021-03-04 social Universit y of 00:00:00 00:00:00 [facility] Tobacco use and 2015-06-26 2015-06-26 Smokeless tobacco Un iversity of exposure 00:00:00 00:00:00 non-user [facility] Smoking Status Start Date Stop Date Source Never Smoker [facility] Medications Ordered Filled Start Stop Current Ordering Indication Dosage Frequency Signature Comments Components Source Medication Medication Date Date Medication? Clinician (SIG) Name Name John Yes [id number] 1{each} Insert 1 Univers 0.12-0.015 8-11 Each into ity of mg/24 hr 00:00: vagina [place] vaginal 00 once every Medica l insert month. Branch Insert vaginally and leave in place for 3 consecutiv e weeks, then remove for 1 week. NUVARING Yes [id number] INSERT ONE Univers 0.12-0.015 7-13 RING INTO ity of mg/24 hr 00:00: VAGINA [place] vaginal 00 ONCE EVERY Medica l insert MONTH. AND Branch LEAVE IN PLACE FOR 3 CONSECUTIV E WEEKS, THEN REMOVE FOR 1 WEEK. buPROPion Yes 100mg Take 100 Uni vers 100 mg 7-08 mg by ity of tablet 00:00: mouth 2 00 (two) Medical times Branch daily. ergocalcife Yes TAKE ONE Un daniela rol, 6-28 (1) ity of vitamin d2, 00:00: CAPSULE(S) [place] 1,250 mcg 00 BY MOUTH Medica l (50,000 ONCE A Branch unit) WEEK. capsule CONSTULOSE Yes TAKE 15 Univ ers 10 gram/15 6-04 ML(S) BY ity o f mL solution 00:00: MOUTH 00 TWICE A Medical DAY Branch NEEDED FOR CONSTIPATI ON. ondansetron Yes DISSOLVE Un daniela 4 mg 6-04 ONE (1) ity of disintegrat 00:00[place] TABLE ON [place] tablet 00 TONGUE Medical EVERY FOUR Branch TO SIX HOURS NEEDED. dicyclomine Yes TAKE ONE Un daniela 20 mg 5-01 (1) ity of tablet 00:00: TABLET(S) [place] 00 BY MOUTH Medical EVERY SIX Branch HOURS NEEDED. BuPROPion BuPROPion 2018-08 Yes Kell 1 tablet Common HCl HCl -04 [place] Spirit 00:00: - [facility] 00 [facility] Tri-Sprinte Tri-Sprinte No Tri-Sprint c c ec 0.18/0.215/ 0.18/0.215/ 0.18/0.215 0.25 MG-35 0.25 MG-35 /0.25 MCG MCG MG-35 MCG NuvaRing NuvaRing No NuvaRing 0.12-0.015 0.12-0.015 0.12-0.015 MG/24HR MG/24HR MG/24HR NuvaRing NuvaRing No NuvaRing 0.12-0.015 0.12-0.015 0.12-0.015 MG/24HR MG/24HR MG/24HR buPROPion buPROPion No buPROPion HCl 100 MG HCl 100 MG HCl 100 MG Nystatin Nystatin No Nystatin 041899 241585 [id number] UNIT/GM UNIT/GM UNIT/GM Vitamin D Vitamin D No 1{capsu Vitamin D (Ergocalcif (Ergocalcif le} (Ergocalci ginny) 1.25 ginny) 1.25 ferol) MG (90835 MG (45656 1.25 MG UT) UT) (38880 UT) NuvaRing NuvaRing No NuvaRing 0.12-0.015 0.12-0.015 0.12-0.015 MG/24HR MG/24HR MG/24HR Vitamin D Vitamin D No 1{capsu Vitamin D (Ergocalcif (Ergocalcif le} (Ergocalci ginny) 1.25 ginny) 1.25 ferol) MG (55864 MG (00491 1.25 MG UT) UT) (04493 UT) buPROPion buPROPion No buPROPion HCl 100 MG HCl 100 MG HCl 100 MG Nystatin Nystatin No Nystatin 187891 615052 581978 UNIT/GM UNIT/GM UNIT/GM Tri-Sprinte Tri-Sprinte Yes Kell TAKE ONE Common c c [place] (1) Spirit TABLET(S) - [facility]I BY MOUTH St ONCE [facility] buPROPion buPROPion No buPROPion HCl 100 MG HCl 100 MG HCl 100 MG Nystatin Nystatin No Nystatin 359803 271126 486393 UNIT/GM UNIT/GM UNIT/GM Immunizations Ordered Filled Immunization Date Status Comments [facility] e Immunization Name Name [facility] 2017-02-03 Completed [facility] 00:00:00 [facility] - 2017-01-14 Completed [facility] - 11:14:00 [facility] - 2017-01-14 Completed [facility] - 11:14: [facility] - 2017-01-14 Completed [facility] - 11:14:00 [facility] 1999-08-10 Completed [facility] 00:00:00 [facility] Vital Signs Vital Name Observation Time Observation Value Comments Source Systolic blood 2022-03-20 18:41:00 120 mm[Hg] [facility] [place] Diastolic blood 2022-03-20 18:41:00 76 mm[Hg] [facility] Heart rate 2022-03-20 18:41:00 62 /min [facility] Body temperature 2022-03-20 18:41:00 36.5 [facility] Respiratory rate 2022-03-20 18:41:00 18 /min [facility] Body height 2022-03-20 18:41:00 172.7 cm [facility] Body weight 2022-03-20 18:41:00 111.585 kg [facility] BMI 2022-03-20 18:41:00 37.40 kg/m2 [facility] height 2022-03-20 09:40:00 66 [in_i] Common S pirit - [facility] weight 2022-03-20 09:40:00 245.6 [lb_av] [facility] temperature 2022-03-20 09:40:00 97.1 [degF] Common S pirit [facility] bmi 2022-03-20 09:40:00 39.64 kg/m2 [facility] oximetry 2022-03-20 09:40:00 100 % Common [facility] respiratory rate 2022-03-20 09:40:00 16 /min Comm on [facility] blood pressure 2022-03-20 09:40:00 124 mm[Hg] [facility] - systolic [facility] blood pressure 2022-03-20 09:40:00 71 mm[Hg] Common [facility] - diastolic [facility] height 2021-09-20 08:40:00 66 [in_i] Common [facility] weight 2021-09-20 08:40:00 240 [lb_av] [facility] temperature 2021-09-20 08:40:00 97.9 [degF] [facility] bmi 2021-09-20 08:40:00 38.73 kg/m2 [facility] oximetry 2021-09-20 08:40:00 99 % [facility] respiratory rate 2021-09-20 08:40:00 18 /min Comm on [facility] blood pressure 2021-09-20 08:40:00 136 mm[Hg] Common [facility] - systolic [facility] blood pressure 2021-09-20 08:40:00 65 mm[Hg] [facility] - diastolic [facility] height 2021-03-21 15:00:00 66 [in_i] Common S [facility] weight 2021-03-21 15:00:00 229 [lb_av] [facility] temperature 2021-03-21 15:00:00 97.8 [degF] Common S pirit [facility] bmi 2021-03-21 15:00:00 36.96 kg/m2 Common S pirit - [facility] oximetry 2021-03-21 15:00:00 100 % Common S pirit [facility] respiratory rate 2021-03-21 15:00:00 18 /min Comm on [facility] blood pressure 2021-03-21 15:00:00 120 mm[Hg] Common [facility] - systolic [facility] blood pressure 2021-03-21 15:00:00 68 mm[Hg] Common [facility] - diastolic [facility] Procedures Procedure Date / Time Performed Performing Clinician Sourc e [id number] 2019-12-20 00:00:00 ARSALAN [facility] [id number] 2019-12-20 00:00:00 ARSALAN [facility] [id number] 2019-12-20 00:00:00 ARSALAN [facility] [id number] 2019-12-20 00:00:00 [facility] Encounters Start End Encounter Admission Attending Care Care Encounter Source Date/Time Date/Time Type Type Clinicians Facility Department ID 2022-03-18 Outpatient [place], STLMLC STLMLC [id number] Common 09:33:00 Kell [id number] [facility] 2021-09-04 Outpatient [place], STLMLC STLMLC [id number] Common 12:10:56 Kell [id number] [facility] 2021-09-04 Outpatient [place], STLMLC STLMLC [id number] Common 11:06:46 Kell [id number] [facility] 2021-09-04 Outpatient [place], STLMLC STLMLC [id number] Common 11:06:09 Kell [id number] [facility] 2021-09-04 Outpatient Millender, STLMLC STLMLC [id number] Common 11:00:11 Sandra [id number] [facility] 2021-09-04 Outpatient Millender, STLMLC STLMLC [id number] Common 10:59:46 Sandra [id number] [facility] 2019-12-20 Inpatient [facility] DAYS [id number] [facility] 11:30:00 , Art [facility] 2022-03-20 2022-03-20 [facility] [id number] Univers 13:15:00 14:26:54 Visit Elana Real SUPERVISOR CYTOLOGY [id number] ity of REGIONAL [id number] Miguel Angel as MATERNAL [id number] [facility] & CHILD [address] [place] [address] 2022-03-20 2022-03-20 Outpatient R CA, [facility] [id number] Univers 13:15:00 14:26:54 ELANA ity o f [facility] 2022-03-20 2022-03-20 Outpatient R CA [facility] [id number] Univers 13:15:00 13:15:00 ELANA phamy o [facility] 2022-03-20 2022-03-20 OFFICE STLMLC STLC [id number] Co mmon 00:00:00 00:00:00 VISIT EST Spir it PT LEVEL 3 - [facility] 2022-02-19 2022-02-19 Refruperto Pen[facility] [id number] Univers 00:00:00 00:00:00 Elana Real SUPERVISOR CYTOLOGY [id number] ity of REGIONAL [id number] Miguel Angel as MATERNAL [id number] [address] 2021-10-27 2021-10-27 Laya [facility]OV[facility] [id number] Univers 00:00:00 00:00:00 Samantha Turner SUPERVISOR CYTOLOGY [id number] it y of REGIONAL [id number] Miguel Angel as MATERNAL [id number] [address] 2021-10-11 2021-10-11 Outpatient Marilee PENALOZA [facility] [id number] Univers 09:15:00 09:19:15 ELANA munoz o f [facility] 2021-10-11 2021-10-11 Office [facility] [id number] Univers 09:15:00 09:19:15 Visit Elana Real SUPERVISOR CYTOLOGY [id number] ity of [facility] [id number] Miguel Angel as MATERNAL [id number] [facility] & CHILD [address] [place] [address] 2021-10-11 2021-10-11 Outpatient R CA [facility] [id number] Univers 09:15:00 09:15:00 ELANA phamy o f [facility] 2021-10-11 2021-10-11 Orders Doctor JOCY [id number] Univers 00:00:00 00:00:00 Only Unassigned, LASHELL [id number] ity of [place] [facility] [id number] Miguel Angel as [id number] [address] 2021-09-20 2021-09-20 PREV VISIT [facility] [id number] Common 00:00:00 00:00:00 EST AGE Spirit 18-39 - [facility] 2021-08-12 2021-08-12 Patient [facility] [id number] Univers 00:00:00 00:00:00 Secure Msg Samantha Turner SUPERVISOR CYTOLOGY [id number] ity of [place] [id number] Miguel Angel as MATERNAL [id number] [address] 2021-07-15 2021-07-15 [facility] [id number] Univers 09:45:00 10:04:21 SAMANTHA munoz of [facility] 2021-07-15 2021-07-15 Office [facility] [id number] Univers 09:37:10 10:04:21 Visit Samantha Turner SUPERVISOR CYTOLOGY [id number] it y of [facility] [id number] Miguel Angel as MATERNAL [id number] [facility] CHILD [address] [place] [address] 2021-07-15 2021-07-15 Telephone Sonia [facility] [id number] Univers 00:00:00 00:00:00 Dorian Hunt SUPERVISOR CYTOLOGY 350.1.13.10 ity of REGIONAL [id number] Miguel Angel as MATERNAL [id number] [facility] [address] [place] [address] 2021-07-13 2021-07-13 Laya [facility] [id number] Univers 00:00:00 00:00:00 Rospolonda R SUPERVISOR CYTOLOGY 350.1.13.10 ity of REGIONAL [id number] Miguel Angel as MATERNAL [id number] [facility] [address] [place] [address] 2021-07-08 2021-07-08 [facility] 1.2.840.114 [id number] Univers 00:00:00 00:00:00 Sandovala R SUPERVISOR CYTOLOGY 350.1.13.10 ity of REGIONAL [id number] Miguel Angel as MATERNAL [id number] [facility] & CHILD [address] [place] [address] 2021-07-08 2021-07-08 [facility] 1.2.840.114 [id number] Univers 00:00:00 00:00:00 Samantha Turner SUPERVISOR CYTOLOGY 350.1.13.10 it y of REGIONAL [id number] Miguel Angel as MATERNAL [id number] [facility] & CHILD [address] [place] [address] 2021-06-20 2021-06-20 [facility] [id number] Univers 13:15:00 13:15:00 SAMANTHA munoz of [facility] 2021-04-18 2021-04-18 Laya [facility] [id number] Univers 00:00:00 00:00:00 Sandovala R SUPERVISOR CYTOLOGY [id number] ity of REGIONAL [id number] Miguel Angel as MATERNAL [id number] [facility] CHILD [address] [place] [address] 2021-04-17 2021-04-17 Laya [facility] [id number] Univers 00:00:00 00:00:00 Sandovala R SUPERVISOR CYTOLOGY 350.1.13.10 ity of REGIONAL [id number] Miguel Angel as MATERNAL [id number] [facility] [address] [place] [address] 2021-04-16 2021-04-16 Refruperto Scott [facility] 1.2.840.114 [id number] Univers 00:00:00 00:00:00 Sandovalcarlo Hunt SUPERVISOR CYTOLOGY 350.1.13.10 ity of [facility] [id number] Miguel Angel as MATERNAL [id number] [facility] & CHILD [address] [place] [address] 2021-04-14 2021-04-14 Refruperto [facility] [id number] Univers 00:00:00 00:00:00 [facility] SUPERVISOR CYTOLOGY 350.1.13.10 ity of [facility] [id number] Miguel Angel as MATERNAL [id number] [facility] & CHILD [address] [place] [address] 2021-03-21 2021-03-21 [facility] [id number] Co mmon 00:00:00 00:00:00 VISIT EST Spir it PT LEVEL 3 - [facility] 2021-03-20 2021-03-20 Office [facility] [id number] Univers 09:52:11 11:24:15 Visit Dorian Hunt SUPERVISOR CYTOLOGY 350.1.13.10 ity of [facility] [id number] Miguel Angel as MATERNAL [id number] [facility] CHILD [address] [place] [address] 2021-03-20 2021-03-20 Outpatient R [facility] [id number] Univers 09:30:00 09:30:00 ity of [facility] 2021-03-20 2021-03-20 Orders Doctor JOCY 1.2.840.114 [id number] Univers 00:00:00 00:00:00 Only Unassigned, LASHELL 350.1.13.10 ity of [place] [facility] 4.2.7.2.686 Miguel Angel as [id number] [address] 2021-03-04 2021-03-04 Office Christina MDRAFAT [id number] Univers 09:37:31 11:01:30 Visit Samantha Turner SUPERVISOR CYTOLOGY 350.1.13.10 it y of REGIONAL 4.2.7.2.686 Miguel Angel as MATERNAL [id number] [facility] ical & CHILD [address] [facility] 2021-03-04 2021-03-04 Outpatient Marilee VASQUEZ [facility] [id number] Univers 09:30:00 09:30:00 SAMANTHA munoz [facility] 2021-01-14 2021-01-14 Outpatient [facility] DAYS BP0 [id number] [facility] 01:37:00 01:37:00 , Art Loco [facility] 2020-10-30 2020-10-30 Patient Alex MDRAFAT 1.2.840.114 [id number] Univers 00:00:00 00:00:00 Outreach Oscar PRIMARY 350.1.13.10 i ty of [facility] [id number] [place] [id number] [place] dical [address] [place] [address] 2020-10-30 2020-10-30 Patient Alex MDRAFAT 1.2.840.114 [id number] 00:00:00 00:00:00 Outreach Oscar PRIMARY [id number] Nando CARE 4.2.7.2.686 PAVILLION [id number] 2020-09-07 2020-09-07 Refill Doctor [facility] 1.2.840.114 [id number] Univers 00:00:00 00:00:00 Unassigned, SUPERVISOR CYTOLOGY 350.1.13.10 ity of [place] REGIONAL 4.2.7.2.686 Miguel Angel as MATERNAL [id number] [facility] ical & CHILD [address] [place] [address] 2020-09-07 2020-09-07 Refill Doctor [facility] 1.2.840.114 [id number] 00:00:00 00:00:00 Unassigned, SUPERVISOR CYTOLOGY 350.1.13.10 [place] REGIONAL 4.2.7.2.686 MATERNAL [id number] & CHILD [address] [place] [address] 2020-07-25 2020-07-25 Outpatient Marilee SCOTT [facility] [id number] Univers 10:15:00 10:15:00 ROSHUNDA ity o [facility] 2020-07-25 2020-07-25 Outpatient STLMLC STLMLC [id number] Common 00:00:00 00:00:00 [facility] 2020-07-25 2020-07-25 Outpatient STLMLC STLMLC [id number] Common 00:00:00 00:00:00 [facility] 2020-07-17 2020-07-17 Outpatient STLMLC STLMLC [id number] Common 00:00:00 00:00:00 [facility] 2020-07-11 2020-07-11 Out[facility] [id number] Univers 14:45:00 14:45:00 AMBERNDA verojaneth o [facility] 2020-07-02 2020-07-02 Telephone [facility] [id number] [facility] 00:00:00 00:00:00 Dorian R SUPERVISOR CYTOLOGY 350.1.13.10 ity [facility] 4.2.7.2.686 Miguel Angel as MATERNAL [id number] Med ical & CHILD [address] [facility] 2020-07-02 2020-07-02 Telephone [facility] [id number] 00:00:00 00:00:00 Dorian Hunt SUPERVISOR CYTOLOGY 350.1.13.10 REGIONAL 4.2.7.2.686 MATERNAL [id number] & CHILD [address] [facility] 2020-06-28 2020-06-28 Outpatient [facility] [id number] Univers 09:30:00 09:30:00 AMBERNDA tammy o f [facility] 2020-04-17 2020-04-17 [facility] [id number] Common 08:40:00 08:40:00 t [facility] Road [facility] 2020-04-12 2020-04-12 Office [facility] 1.2.840.114 [id number] Univers 10:12:18 10:46:25 Visit Dorian Hunt SUPERVISOR CYTOLOGY 350.1.13.10 ity [facility] [id number] Miguel Angel as MATERNAL [id number] Med ical & CHILD [address] [facility] 2020-04-12 2020-04-12 Office [facility] 1.2.840.114 [id number] 10:12:18 10:46:25 Visit Dorian Hunt SUPERVISOR CYTOLOGY 350.1.13.10 [facility] [id number] MATERNAL [id number] & CHILD [address] [facility] 2020-04-12 2020-04-12 Outpatient Marilee SCOTT [facility] [id number] Univers 10:30:00 10:30:00 DORIAN phamy o f [facility] 2020-04-12 2020-04-12 Orders Doctor JOCY 1.2.840.114 [id number] Univers 00:00:00 00:00:00 Only Unassigned, LASHELL 350.1.13.10 ity of [place] [facility] [id number] Miguel Angel as [id number] [address] 2020-02-20 2020-02-20 Outpatient [facility] [id number] Common 14:54:00 14:54:00 [facility] it Road [facility] 2020-02-16 2020-02-16 Outpatient [facility] [id number] Common 14:20:00 14:20:00 [facility] Spir it Road [facility] 2020-02-14 2020-02-14 Outpatient [facility] [id number] Common 13:49:00 13:49:00 [facility] Spir it [address] [facility] 2020-01-13 2020-01-13 Outpatient [facility] [id number] Common 10:00:00 10:00:00 [facility] Spir it Road [facility] 2019-12-08 2019-12-08 Outpatient Marilee SCOTT [facility] [id number] Univers 08:30:00 08:30:00 SANDOVALA ity o f [facility] 2019-12-07 2019-12-07 Telephone [facility] [id number] Univers 00:00:00 00:00:00 Dorian Hunt SUPERVISOR CYTOLOGY 350.1.13.10 ity of REGIONAL [id number] Miguel Angel as MATERNAL [id number] Med ical & CHILD [address] [facility] 2019-11-30 2019-11-30 Outpatient [facility] [id number] Common 15:55:00 15:55:[address] [facility] 2019-11-26 2019-11-26 Outpatient [facility] [id number] Common 13:26:00 13:26:[address] [facility] 2019-11-25 2019-11-25 Outpatient [facility] [id number] Common 13:46:00 13:46:[address] [facility] 2019-10-14 2019-10-14 [id number] Common 08:00:00 08:00:[address] [facility] 2019-09-19 2019-09-19 [id number] Common 13:00:00 13:00:[address] [facility] 2019-08-22 2019-08-22 [id number] Common 14:00:00 14:00:[address] [facility] 2019-07-11 2019-07-11 [id number] Common 14:40:00 14:40:[address] [facility] 2019-06-13 2019-06-13 [id number] Common 08:00:00 08:00:[address] [facility] 2019-05-30 2019-05-30 [id number] Common 11:00:00 11:00:[address] [facility] Results Test Description Test Time Test Comments Results Result Comments Source SURGICAL SPECIMENS 2021-01-15 17:27:00 Test Item Value Reference Range Interpretation Comme nts SURGICAL RUN SPECIMENS DATE: 01/15/21 [facility] - LAB PAGE 1 RUN TIME: 172 Specimen Inquiry RUN USER: (test code INTERFACE = SURG) OTY ENT: CYNDIE TORRES LOC: JOSE U #: [id number] AGE/SX: 35/F ROOM: [facility]: Art Allen MD : 87 BED: DIS: STATUS: JUNITO COOK TLOC: SPEC #: [id number] RECD: 01/14/21 STATUS: MARCIA DE JESUS #: [id number] PARI: 01/14/[address]: Art Allen MD E NTERED: 01/14/21 SP TYPE: SURG OTHR DR: Kell Hope SENIOR GEOTECHNICAL ENGINEER ORDERED: PATHGM3, PATH SPEC, H E STAIN HISTOLOGY: TISSUE ID BLK PCS GERALDO LEV / PROCEDURE DISPOSITION ____ ___ ___ ___ ___ GALLBLADDER A 2 1 TISSUES: Martha FOWLERBLADD ER - Gallbladder CLINICAL HISTORY Chronic Cholecystits FINAL DIAGNOSIS GALLBLADDER, CINDY CYSTECTOMY: -CHRONIC CALCULOUS CHOLECYSTITIS POLYPOID CHOLESTEROLOSIS CPT 60614 GR OSS DESCRIPTION Received in formalin labeled "gallbladder" is a cholecystectomy specimen [place] suring 6 x 2 x 1.5 cm. The distal aspect of the gallbladder was previously cut as well and i t measures 1.5 x 1 x 1. Multiple gallstones are noted within the specimen and in the containe r ranging in size from 0.2 to 0.6 cm. No mass lesion is seen. [employer] Supervisor sections are submitted as follows: A1, cystic duct margin; A2, gallbladder wall. PG/se - Signed SIGNATURE ON FILE JenniferRinku Krystina 01/15/21 172 7 END OF REPORT - XR FLUOROSCOPY 0-60 [id number] 12:13:00 [facility] 1985 Sex: FPatient Name: CYNDIE TORRES Unit No: [id number] EXAMS: CPT CODE: [id number] XR FLUOROSCOPY 0-60MIN 63445 Examination: Operative fluoroscopy Location code: S17 Comparison: None Discussion: Clinical history is remarkable for cholecystitis. 46.9 seconds fluoroscopic time is utilized. Single intraoperative image demonstrates retrograde injection of the cystic duct, contrast flows into the duodenum.No evidence of fixed filling defect. Impression: Please refer to the operative report. at 1213 Reported and signed by: CRISTY CONNELLY M.D. CC: Kell Hope; Art Allen MD Technologist: SARAI MAN RT(R) Fluoro Time: DAP (Gy m2): Air Kerma (mGy): Trscr Dt/Tm: 01/14/2021 (1213) by:[email or web address] Printed Date/Time: 01/14/2021 (1216) Name: CYNDIE TORRES [facility] Phys: Art Foss [address] : 1985 Age: 35 Sex: [place] [address] Loc: P.SRG Exam Date: 01/14/2021 [place] [facility] [place] FA[place]: PAGE 1 Signed ReportCOVID Asymptomatic IH [id number] 11:14:00 Test Item Value Reference Interpretation Comments Range COVID Negative Negative A negative resu lt does not Asymptomatic IH preclude the SARS-COV-2 NTX (test code = viralinfect ion and should not COVNONPUINTX) be used as the sole basis forpatient leonor gement decisions. Nega tive results must becombined with clinical observations, p atient history, andepidemiologi savannah information. Vi ral levels in clinicalsamples below the detection limit of the assay could lead tone gative results. This test was p erformed using the [employer] Smart TM COVID-19 PCRassay. This test was developed and i ts performancechar acteristics were determined by [facility]. Thi s test has notbeen FDA meena ared or approved. This test is authorized by t heFDA under Emergency Use Authorization(E UA). The EUA willremain in e ffect unless it is terminated o r revoked by FDA . Testing p arameters have not been valida geoff for screeningasympt omatic patients. This test was validated accor ding to the FDA's guidanced ocument "Policy for Diagnostics testing in LaboratoriesCer tified to Perform High Co mplexity Testing under C JORGE". First test? UnknownEmployed in Healthcare? UnknownSymptomatic as defined by CDC? UnknownHospitalizeddue to COVID? UnknownIn ICU due to COVID? UnknownResident in a congregate care setting? Unknown? UnknownAge at collection: Y COMPREHENSIVE METABOLIC [id number] 11:09:00 Test Item Value Reference Range Interpretation Comments SODIUM (test code = 143 mmol/L 136-145 N Please n ote: New NA) Reference Range Sep 2020 POTASSIUM (test 4.6 mmol/L 3.5-5.1 N code = K) CHLORIDE (test code 108 mmol/L 98-107 H Please n ote: New = CL) Reference Range Sep 2020 CARBON DIOXIDE 28 mmol/L 20-31 N Please note: New (test code = CO2) Reference Range Sep 2020 GLUCOSE (test code 88 mg/dL 74-106 N Please no te: New = GLU) Reference Range Sep 2020 BLOOD UREA NITROGEN 17 mg/dL 9-23 N Please n ote: New (test code = BUN) Reference Range Sep 2020 GLOMERULAR >=60 max >60 The estimated FILTRATION RATE estimate glomerular (test code = GFR) filtration rate is computed usingpatient ra ce, age (>18), sex, and serum creatinin e. If anyof the ne eded data elements a re missing the Laboratory saranya ot compute an estimation of t he glomerular filtration rate . CREATININE (test 0.90 mg/dL 0.55-1.02 N Please note : New code = CREAT) Reference Rang e Sep 2020 TOTAL PROTEIN (test 7.1 g/dL 5.7-8.2 N Please n ote: New code = PROT) Reference Range Sep 2020 ALBUMIN (test code 4.7 g/dL 3.2-4.8 N Please no te: New = ALB) Reference Range Sep 2020 CALCIUM (test code 9.9 mg/dL 8.7-10.4 N Please no te: New = CA) Reference Range Sep 2020 BILIRUBIN TOTAL 0.5 mg/dL 0.3-1.2 N Please note: New (test code = BILT) Reference Range Sep 2020 SGOT/AST (test code 22 U/L <34 N Please n ote: New = AST) Reference Range Sep 2020 SGPT/ALT (test code 19 U/L 10-49 N Please n ote: New = ALT) Reference Range Sep 2020 ALKALINE 81 U/L 46-116 N Please note: Ne w PHOSPHATASE (test Reference Range Feb code = ALKP) 2020 PROTHROMBIN [id number] 11:04:00 Test Item Value Reference Range Interpretation Comments PROTHROMBIN TIME 11.9 SECONDS 10.3-12.9 N PATIENT (test code = PTP) INTERNATIONAL 1.05 INR UNIT 0.9-1.11 N The INR is us eful only NORMAL RATIO (test for monit oring code = INR) anticoagulant therapy.It may be unreliable in t he initial phase o f antigoagulation and in unstable patien ts. Indication for Anticoagulation Recommended INR 1. Prevention of v enous thomboembolism 2.0-3.0in high- risk patients; treat ment of venousthrombosi s and pulmonary embol ism aftera course o f heparin; preven tion of systemicembolis m in a variety of cond itions, including atria l fibrillation an d prothetic tissu e heart valves, 2. Pros thetic mechanical hear t valves; 2.5-3.5recurren t systemic emboli sm. THROMBOPLASTIN TIME [id number] 11:04:00 Test Item Value Reference Range Interpretation Comments THROMBOPLASTIN TIME 35.1 SECONDS 23.8-34.8 H INTERPRE TATIVE PARTIAL (test code = DATA:Th erapeutic PTT) range: Unfractionated heparin:55 - 80 seconds Argatroban:1.5 to 3 times the basel ine PTT UR HCG [id number] 10:54:00 Test Item Value Reference Range Interpretation Comments UR HCG QUAL (test code = HCGQLU) NEGATIVE NEGATIVE CBC W/AUTO [id number] 10:48:00 Test Item Value Reference Range Interpretation Comments WHITE BLOOD CELL (test code = 5.8 x10 3/uL 4.8-10.8 N WBC) RED BLOOD CELL (test code = 4.90 x10 6/uL 4.20-5.40 N RBC) HEMOGLOBIN (test code = HGB) 13.9 g/dL 12.0-16.0 N HEMATOCRIT (test code = HCT) 43.2 % 37.0-47.0 N MEAN CELL VOLUME (test code = 88.2 fL 81.0-99.0 N MCV) MEAN CELL HGB (test code = MCH) 28.4 pg 27-31 N MEAN CELL HGB CONCENTRATION 32.2 G/DL 33-36.5 L (test code = MCHC) RED CELL DISTRIBUTION WIDTH 12.8 % 12.9-16.9 L (test code = RDW) PLATELET COUNT (test code = 248 x10 3/uL 150-440 N PLT) MEAN PLATELET VOLUME (test code 10.0 fL 8.9-12.4 N = MPV) NEUTROPHIL % (test code = NT%) 57.5 % 42.2-75.2 N LYMPHOCYTE % (test code = LY%) 34.3 % 20.5-51.1 N MONOCYTE % (test code = MO%) 6.1 % 1.7-9.3 N EOSINOPHIL % (test code = EO%) 1.6 % 0.0-7.0 N BASOPHIL % (test code = BA%) 0.5 % 0-2.5 N NEUTROPHIL # (test code = NT#) 3.33 x10 3/uL 1.80-7.70 N LYMPHOCYTE # (test code = LY#) 1.98 x10 3/uL 1.00-4.80 N MONOCYTE # (test code = MO#) 0.35 x10 3/uL 0.00-0.80 N EOSINOPHIL # (test code = EO#) 0.09 x10 3/uL 0.00-0.45 N BASOPHIL # (test code = BA#) 0.03 x10 3/uL 0.0-0.20 N SURGICAL [id number] 13:53:00 RUN DATE: 12/22/19 [facility] - LAB PAGE 1 RUN TIME: 1353 Specimen Inquiry RUN USER: INTERFACE ------- -----PAT[facility]: [facility] #: [id number] AGE/SX: 34/F ROOM: [facility] RE12/20/19REG DR: Art Allen MD : 87 BED: 1 DIS: 12/21/19 STATUS: DIS IN TLOC: - SPEC #: [id number] RECD: 12/20/19 STATUS: SOUT REQ #: [id number] PARI: 12/20/19-[address] [facility] [address]: Art lAlen MD ENTERED: 12/20/19-1310 SP TYPE: SURG OTHR DR: No Primary [...] No lesions or masses are identified grossly. [employer] Supervisor sections are submitted in a single cassette. [facility]/th MICROSCOPIC DESCRIPTION Microscopic performed. Signed SIGNATURE ON FILE Idalmis Quiros MD 12/22/19 1353 END OF REPORT BASIC METABOLIC [id number] 06:47:00 Test Item Value Reference Range Interpretation Comments SODIUM (test code 141 MMOL/L 136-143 N = NA) POTASSIUM (test 5.0 MMOL/L 3.5-5.1 N code = K) CHLORIDE (test 102 MMOL/L 98-107 N code = CL) CARBON DIOXIDE 27 mmol/L 24-31 N (test code = CO2) GLUCOSE (test code 130 mg/dL 70-104 H = GLU) BLOOD UREA 4.7 MG/DL 7.0-21.0 L NITROGEN (test code = BUN) GLOMERULAR >=60 max >60 The estimated FILTRATION RATE estimate glomerular (test code = GFR) filtration rate is computed usingpatient ra ce, age (>18), sex, and serum creatinin e. If anyof the neede d data elements a re missing the Laboratory saranya ot compute an estimation of t he glomerular filtration rate . CREATININE (test 0.9 mg/dL 0.8-1.5 N code = CREAT) CALCIUM (test code 9.0 mg/dL 8.8-10.2 N = CA) [id number] 06:47:00 Test Item Value Reference Range Interpretation Comments PHOSPHOROUS (test code = PHOS) 3.4 mg/dL 2.7-4.5 N [id number] 06:47:00 Test Item Value Reference Range Interpretation Comments MAGNESIUM (test code = MAG) 2.2 mg/dL 1.4-2.6 N CBC W/AUTO [id number] 06:19:00 Test Item Value Reference Range Interpretation [...] 0.02 x10 3/uL 0.0-0.20 N UR HCG [id number] 10:27:00 Test Item Value Reference Range Interpretation Comments UR HCG QUAL (test code = HCGQLU) NEGATIVE NEGATIVE PROTHROMBIN [id number] 12:54:00 Test Item Value Reference Range Interpretation Comments PROTHROMBIN TIME 12.4 SECONDS 10.3-12.9 N PATIENT (test code = PTP) INTERNATIONAL 1.09 INR UNIT 0.9-1.11 N The INR is us eful only NORMAL RATIO (test for monit oring code = INR) anticoagulant therapy.It may be unreliable in t he initial phase o f antigoagulation and in unstable patien ts. Indication for Anticoagulation Recommended INR 1. Prevention of v enous thomboembolism 2.0-3.0in high- risk patients; treat ment of venousthrombosi s and pulmonary embol ism aftera course o f heparin; preven tion of systemicembolis m in a variety of cond itions, including atria l fibrillation an d prothetic tissu e heart valves, 2. Pros thetic mechanical hear t valves; 2.5-3.5recurren t systemic emboli sm. THROMBOPLASTIN TIME [id number] 12:54:00 Test Item Value Reference Range Interpretation Comments THROMBOPLASTIN TIME 29.9 SECONDS 26.0-35.9 N INTERPRE TATIVE PARTIAL (test code = DATA:Th erapeutic PTT) range: Unfractionated heparin:47 - 71 seconds Argatroban:1.5 to 3 times the basel ine PTT Coronavirus 2019 nCoV [id number] 12:27:00 Test Item Value Reference Range Interpretation Comments Coronavirus 2019 nCoV Bedside (test Negative NEGATIVE code = [id number]) CBC W/AUTO [id number] 11:51:00 Test Item Value Reference Range Interpretation [...] 0.02 x10 3/uL 0.0-0.20 N COMPREHENSIVE METABOLIC [id number] 11:45:00 Test Item Value Reference Range Interpretation [...]
[2022-10-08] MEDS ORDERED: ACETAMINOPHEN 500 MG TAB ONE (10:41)
--- NOTE | 2022-10-08 10:41 | RAD REPORT ---
EXAM DESCRIPTION: RAD -Hand Left 3 View - 10/08/2022 10:31 am CLINICAL HISTORY: Left hand pain status post injury FINDINGS: No fracture or dislocation is seen.
--- NOTE | 2022-10-08 10:41 | RAD REPORT ---
EXAM DESCRIPTION: RAD - Tib Fib Right - 10/08/2022 10:31 am CLINICAL HISTORY: Right leg pain FINDINGS: No fracture is seen
--- NOTE | 2022-10-08 10:51 | ER ---
Nurse's Notes [facility] Name: Cyndie Soliz Age: 37 yrs Sex: Female : 1985 Arrival Date: 10/08/2022 Time: 10:00 Bed IW1 Private MD: Kell Hope Diagnosis: Abrasion of right forearm;Abrasion of right hand;Abrasion of lower leg;Contusion of right knee;Contusion of left hand Presentation: 10/08 10:06 Chief complaint: Patient states: L hand and R knee pain after tripping and falling last ss night in parking lot. Superficial abrasions noted to R elbow, R knee and chin. Coronavirus screen: Client denies travel out of the [place] in the last 14 days. Ebola Screen: Patient denies exposure to infectious person. Patient denies travel to an Ebola-affected area in the 21 days before illness onset. Initial Sepsis Screen: Does the patient meet any 2 criteria? No. Patient's initial sepsis screen is negative. Does the patient have a suspected source of infection? No. Patient's initial sepsis screen is negative. Risk Assessment: Do you want to hurt yourself or someone else? Patient reports no desire to harm self or others. Onset of symptoms was October 07, 2022. 10:06 Method Of Arrival: Ambulatory ss 10:06 Acuity: SHANIKA 4 ss Historical: - Allergies: 10:08 No Known Allergies; ss - PMHx: 10:08 PCOS; ss - Immunization history:: Client reports having NOT received the Covid vaccine. - Social history:: Smoking status: Patient denies any tobacco usage or history of. Screenin:29 [facility] ED Fall Risk Assessment (Adult) History of falling in the last 3 months, ss including since admission No falls in past 3 months (0 pts). Abuse screen: Denies threats or abuse. Denies injuries from another. Nutritional screening: No deficits noted. Tuberculosis screening: Never had TB. Assessment: 11:29 General: Appears in no apparent distress. comfortable, Behavior is calm, cooperative. ss Neuro: Level of Consciousness is awake, alert. Derm: Skin is pink, warm \T\ dry. normal. Vital Signs: 10:05 Pulse 69; Resp 16; Temp 98.2(TE); Pulse Ox 100% on R/A; Weight 112.49 kg; Height 5 ft. ss 8 in. (172.72 cm); Pain 7/10; 10:06 BP 135 / 94; ss 10:05 Body Mass Index 37.71 (112.49 kg, 172.72 cm) ED Course: 10:00 Patient arrived in ED. mr 10:00 Kell Hope is Private Physician. mr 10:00 Yissel Aguirre FNP is PHCP. [facility] 10:00 Imani Freedman FNP-C is PHCP. kb 10:01 Terrance Inman MD is Attending Physician. 7 10:01 PHCP role handed off by Yissel Aguirre FNP kb 10:01 Imani Freedman FNP-C is PHCP. kb 10:08 Triage completed. ss 10:08 Arm band placed on right wrist. ss 10:33 Tib Fib Right XRAY In Process Unspecified. EDMS 10:33 Hand Left 3 View XRAY In Process Unspecified. EDMS 10:38 Zaida Mathews, BRANDT is Primary Nurse. ss 11:29 Patient has correct armband on for positive identification. Bed in low position. ss 11:29 No provider procedures requiring assistance completed. Patient did not have IV access ss during this emergency room visit. Velcro wrist splint applied to left wrist. Administered Medications: 10:38 Drug: Tylenol 1000 mg Route: PO; ss 11:18 Follow up: Response: No adverse reaction ss Medication: 11:29 VIS not applicable for this client. Outcome: 10:50 Discharge ordered by . kb 11:29 Discharged to home ambulatory. ss 11:29 Condition: good 11:29 Discharge instructions given to patient, Instructed on discharge instructions, follow up and referral plans. medication usage, Demonstrated understanding of instructions, follow-up care, medications, splint care. 11:30 Patient left the ED. Signatures: Dispatcher [employer] EDMS Imani Freedman FNP-C FNP-Stephan RamirezaRafaela mr Zaida Mathews, BRANDT RN ss Yissel Aguirre FNP [employer]INT F[employer]ER [facility]
--- NOTE | 2022-10-08 10:51 | EDPHYS ---
Physician Documentation [facility] Name: Cyndie Soliz Age: 37 yrs Sex: Female : 1985 Arrival Date: 10/08/2022 Time: 10:00 Bed IW1 Private MD: Kell Hope ED Physician Terrance Inman HPI: 10/08 11:03 This 37 yrs old Female presents to ER via Ambulatory with complaints of Fall Injury. kb 11:03 Details of fall: The patient fell from an upright position, while walking. Onset: The kb symptoms/episode began/occurred last night. Associated injuries: The patient sustained right knee and palmar aspect of right forearm and right hand, abrasion, left hand, painful injury, swelling, right knee, swelling. Severity of symptoms: At their worst the symptoms were mild, moderate, in the emergency department the symptoms are unchanged. The patient has not experienced similar symptoms in the past. The patient has not recently seen a physician. Historical: - Allergies: 10:08 No Known Allergies; ss - PMHx: 10:08 PCOS; ss - Immunization history:: Client reports having NOT received the Covid vaccine. - Social history:: Smoking status: Patient denies any tobacco usage or history of. ROS: 11:02 Constitutional: Negative for fever, chills, and weight loss. kb 11:02 MS/extremity: Positive for pain, swelling, tenderness, of the left hand and right knee. 11:02 Skin: Positive for abrasion(s), of the right hand, palmar aspect of right forearm and right knee. 11:02 All other systems are negative. Exam: 11:02 Constitutional: This is a well developed, well nourished patient who is awake, alert, kb and in no acute distress. Head/Face: Normocephalic, atraumatic. ENT: Moist Mucous membranes Cardiovascular: Regular rate and rhythm with a normal S1 and S2. No gallops, murmurs, or rubs. No pulse deficits. Respiratory: Respirations even and unlabored. No increased work of breathing. Talking in full sentences Abdomen/GI: Soft, non-tender. No distention Neuro: Awake and alert, GCS 15, oriented to person, place, time, and situation. Moves all extremities. Normal gait. Psych: Awake, alert, with orientation to person, place and time. Behavior, mood, and affect are within normal limits. 11:02 Musculoskeletal/extremity: Extremities: grossly normal except: noted in the left hand: pain, swelling, tenderness, noted in the right knee: abrasion, pain, swelling, tenderness, ROM: intact in all extremities, Pulses: Sensation intact. Weight bearing: able to fully bear weight. 11:02 Skin: injury, abrasion(s), small abrasion noted, of the right knee and palmar aspect of right forearm and right hand. Vital Signs: 10:05 Pulse 69; Resp 16; Temp 98.2(TE); Pulse Ox 100% on R/A; Weight 112.49 kg; Height 5 ft. ss 8 in. (172.72 cm); Pain 7/10; 10:06 BP 135 / 94; ss 10:05 Body Mass Index 37.71 (112.49 kg, 172.72 cm) ss MDM: 10:01 Patient medically screened. [facility] 10:42 Differential diagnosis: abrasion, contusion, fracture, sprain. Data reviewed: vital signs, nurses notes. 11:00 I considered the following discharge prescriptions or medication management in the emergency department I discussed and recommended Over The Counter medications. Counseling: I had a detailed discussion with the patient and/or guardian regarding: the historical points, exam findings, and any diagnostic results supporting the discharge/admit diagnosis, radiology results, the need for outpatient follow up, a family practitioner, to return to the emergency department if symptoms worsen or persist or if there are any questions or concerns that arise at home. ED course: Patient is a 37-year-old female who tripped over a curb last night and presents for pain to left hand and right knee. On exam patient has swelling and tenderness to left hand, swelling tenderness and abrasions just distal to right knee, abrasions to right hand and right forearm. Full range of motion of all extremities. Patient has pain with range of motion to left hand. X-rays completed and reviewed. No fractures identified. Patient educated on [id number]-[id number] medications for pain management and follow-up with PCP.. 10/08 10:06 Order name: Tib Fib Right XRAY; Complete Time: 10:42 kb 10/08 10:06 Order name: Hand Left 3 View XRAY; Complete Time: 10:42 kb 03/01 11:08 Order name: Wrist Splint; Complete Time: 11:29 ss Administered Medications: 10:38 Drug: Tylenol 1000 mg Route: PO; ss 11:18 Follow up: Response: No adverse reaction ss Disposition Summary: 10/08/22 10:50 Discharge Ordered Location: Home kb Condition: Stable kb Diagnosis - Abrasion of right forearm kb - Abrasion of right hand kb - Abrasion of lower leg kb - Contusion of right knee kb - Contusion of left hand kb Followup: kb - With: Emergency Department - When: As needed - Reason: Worsening of condition Followup: kb - With: Private Physician - When: 2 - 3 days - Reason: Recheck today's complaints, Continuance of care, Re-evaluation by your physician Discharge Instructions: - Discharge Summary Sheet kb - Musculoskeletal Pain kb - Contusion, [id number]-av-Duqs kb Forms: - Medication Reconciliation Form kb - Thank You Letter kb - Antibiotic Education kb - Prescription Opioid Use kb - School release form Signatures: Dispatcher [employer] Imani Francisco, PASQUALE-C PASQUALE-Zaida Cobos, BRANDT RN Yissel Aguirre FNP FNP [id number]
[2022-10-08 11:44] VITALS: TEMP 98.2
[2022-10-08 11:50] VITALS: BP 127/79; O2SAT 99
== END 2022-10-08 11:30 | disposition home or self-care (01) ==
LOC: ER 09:58
DX: S50.811A Abrasion of right forearm, initial encounter (principal); S60.511A Abrasion of right hand, initial encounter; S80.811A Abrasion, right lower leg, initial encounter; S80.211A Abrasion, right knee, initial encounter; S60.512A Abrasion of left hand, initial encounter

== ENCOUNTER 2023-01-06 10:41 | Emergency (ER) | payer OTHER ==
--- OUTSIDE RECORDS SUMMARY | 2023-01-06 10:46 | XMS REPORT | Continuity of Care Document ---
:1985 Author Organization [facility] t Address [address] [place] [address] Care Team Providers Name Role Phone Dorian Fletcher Primary Care Physician [phone] Kell Hope Attending Clinician Unavailable Sandra Vaughn Attending Clinician Unavailable Art Allen Attending Clinician Unavailable Jackelyn Douglass Attending Clinician [phone] JACKELYN PENALOZA Attending Clinician Unavailable Jeremy Cabrera Attending Clinician Doctor Unassigned, [place] Attending Clinician Unavailable JEREMY VASQUEZ Attending Clinician Unavailable Dorian Fletcher Attending Clinician Oscar Johnson DO Attending Clinician DORIAN SCOTT Attending Clinician Unavailable [place], 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 Unavailable Payers Payer Name Policy Type Policy Number Effective Date Expiration Date Soahm Enciso [id number] 2019 [facility] 00:00:00 [facility] Problems Condition Condition Condition Status [...] Branch contracept contracept delisa delisa management management [id number] Other Problem Active Common fatigue [facility] [id number] Seasonal Problem Active Comm on allergies [facility] [id number] BMI Problem Active Common 40.0-44.9[facility] [id number] Amenorrhea Problem Active Com mon [facility] [id number] History of Problem Active Co mmon bariatric [facility] surgery [facility] [id number] Acute Problem Active Common cystitis [facility] hematuria [facility] [id number] Morbid Problem Active Common obesity [facility] [id number] Vitamin D Problem Active Comm on deficiency [facility] Menorrhagi Menorrhagi Problem Active C ommon a a [facility] [id number] Izabel Problem Active Common albicans [facility] infection [facility] [id number] BMI Problem Active Common 39.0-39.9, [facility] Allergies, Adverse Reactions, Alerts Allergy Allergy Status Severity Reaction(s) Onset Inactive Treating Comm ents Source Name Type Date Date Clinician No Known DA Active U [facility] All[facility]ie 12-15 [facility] 00:00: [facility] No Known DA Active U [facility] Allergie 12-15 [facility] 00:00: [facility] Social History Social Habit Start Date Stop Date Quantity Comments Source History of [facility] - Tobacco Use [facility] Sex Assigned At [facility] bal - [facility] History SDOH University o f Alcohol Frequency [facility] edical Branch History SDOH University o f Alcohol Std [facility] History [facility] o f Alcohol Binge [place] [facility] Branch Exposure to 2022-03-10 2022-03-20 Not sure [facility] SARS-CoV-2 00:00:00 13:42:00 [facility] (event) Branch Alcohol intake 2022-03-20 2022-03-20 .14 /d University of 00:00:00 00:00:00 [facility] Alcohol Comment 2021-03-04 2021-03-04 social Universit y of 00:00:00 00:00:00 [facility] Tobacco use and 2015-06-26 2015-06-26 Smokeless tobacco Un iversity of exposure 00:00:00 00:00:00 non-user [facility] Smoking Status Start Date Stop Date Source Never Smoker [facility] Medications Ordered Filled Start Stop Current Ordering Indication Dosage Frequency Signature Comments Components Source Medication Medication Date Date Medication? Clinician (SIG) Name Name CarmencitaMiladysflora Yes [id number] 1{each} Insert 1 Univers 0.12-0.015 8-11 Each into ity of mg/24 hr 00:00: vagina [place] vaginal 00 once every Medica l insert month. Branch Insert vaginally and leave in place for 3 consecutiv e weeks, then remove for 1 week. NUVARING Yes [id number] INSERT ONE Univers 0.12-0.015 7-13 RING INTO [...] ity o f mL solution 00:00: MOUTH [place] 00 TWICE A Medical DAY Branch NEEDED [...] Yes Kell 1 tablet Common HCl HCl 1-04 [place] [facility] 00:00: - [facility] 00 [facility] Tri-Sprinte Tri-Sprinte Yes Kell TAKE ONE Common c c [place] (1) Spirit TABLET(S) - CHI BY MOUTH ONCE A [facility] buPROPion buPROPion No buPROPion HCl 100 MG HCl 100 MG HCl 100 MG Nystatin Nystatin No Nystatin 187843 161861 [id number] UNIT/GM UNIT/GM UNIT/GM Tri-Sprinte Tri-Sprinte No Tri-Sprint c c ec 0.18/0.215/ 0.18/0.215/ 0.18/0.215 0.25 MG-35 0.25 MG-35 /0.25 MCG MCG MG-35 MCG NuvaRing NuvaRing No NuvaRing 0.12-0.015 0.12-0.015 0.12-0.015 MG/24HR MG/24HR MG/24HR NuvaRing NuvaRing No NuvaRing 0.12-0.015 0.12-0.015 0.12-0.015 MG/24HR MG/24HR MG/24HR buPROPion buPROPion No buPROPion HCl 100 MG HCl 100 MG HCl 100 MG Nystatin Nystatin No Nystatin 984638 685101 981084 UNIT/GM UNIT/GM UNIT/GM Vitamin D Vitamin D No 1{capsu Vitamin D (Ergocalcif (Ergocalcif le} (Ergocalci ginny) 1.25 ginny) 1.25 ferol) MG (28727 MG (56436 1.25 MG UT) UT) (15531 UT) NuvaRing NuvaRing No NuvaRing 0.12-0.015 0.12-0.015 0.12-0.015 MG/24HR MG/24HR MG/24HR Vitamin D Vitamin D No 1{capsu Vitamin D (Ergocalcif (Ergocalcif le} (Ergocalci ginny) 1.25 ginny) 1.25 ferol) MG (81800 MG (41174 1.25 MG UT) UT) (17233 UT) buPROPion buPROPion No buPROPion HCl 100 MG HCl 100 MG HCl 100 MG Nystatin Nystatin No Nystatin 209413 681988 258987 UNIT/GM UNIT/GM UNIT/GM Immunizations Ordered Filled Immunization Date Status Comments [facility] e Immunization Name Name [facility] 2017-02-03 Completed [facility] 00[facility]00:00 [facility] 2017-01-14 Completed [facility] 11:14:00 [facility] 2017-01-14 Completed [facility] 11:14:00 [facility] - 2017-01-14 Completed [facility] 11:14:00 [facility] 1999-08-10 Completed [facility] 00:00:00 [facility] Vital Signs Vital Name Observation Time Observation Value Comments Source Systolic blood 2022-03-20 18:41:00 120 mm[Hg] [facility] Diastolic blood 2022-03-20 18:41:00 76 mm[Hg] [facility] Heart rate 2022-03-20 18:41:00 62 /min [facility] Body temperature 2022-03-20 18:41:00 36.5 [facility] Respiratory rate 2022-03-20 18:41:00 [facility] height 2022-03-20 18:41:00 172.7 cm [facility] Body weight 2022-03-20 18:41:00 111.585 kg [facility] BMI 2022-03-20 18:41:00 37.40 kg/m2 [facility] height 2022-03-20 09:40:00 66 [in_i] Common S pirit [facility] weight 2022-03-20 09:40:00 245.6 [lb_av] [facility] temperature 2022-03-20 09:40:00 97.1 [degF] Common S pirit [facility] bmi 2022-03-20 09:40:00 39.64 kg/m2 [facility] oximetry 2022-03-20 09:40:00 100 % [facility] respiratory rate 2022-03-20 09:40:00 16 /min Comm on [facility] blood pressure 2022-03-20 09:40:00 124 mm[Hg] [facility] - systolic [facility] blood pressure 2022-03-20 09:40:00 71 mm[Hg] [facility] - diastolic [facility] height 2021-09-20 08:40:00 66 [in_i] Common [facility] weight 2021-09-20 08:40:00 240 [lb_av] Common [facility] temperature 2021-09-20 08:40:00 97.9 [degF] [facility] bmi 2021-09-20 08:40:00 38.73 kg/m2 [facility] S [facility] oximetry 2021-09-20 08:40:00 99 % [facility] respiratory rate 2021-09-20 08:40:00 18 /min Comm on [facility] blood pressure 2021-09-20 08:40:00 136 mm[Hg] Common [facility] - systolic [facility] blood pressure 2021-09-20 08:40:00 65 mm[Hg] [facility] - diastolic [facility] height 2021-03-21 15:00:00 66 [in_i] [facility] weight 2021-03-21 15:00:00 229 [lb_av] [facility] temperature 2021-03-21 15:00:00 97.8 [degF] Common S pirit [facility] bmi 2021-03-21 15:00:00 36.96 kg/m2 Common S pirit - [facility] oximetry 2021-03-21 15:00:00 100 % Common [facility] respiratory rate 2021-03-21 15:00:00 18 /min Comm on [facility] blood pressure 2021-03-21 15:00:00 120 mm[Hg] Common [facility] - systolic [facility] blood pressure 2021-03-21 15:00:00 68 mm[Hg] Common [facility] - diastolic [facility] Procedures Procedure Date / Time Performed Performing Clinician Sourc e [id number] 2019-12-20 00:00:00 ARSALAN [facility] [id number] 2019-12-20 00:00[id number] 2019-12-20 00:00:00 ARSALAN [facility] [place] [facility] [id number] 2019-12-20 00:00:00 [facility] Encounters Start End Encounter Admission Attending Care Care Encounter Source Date/Time Date/Time Type Type Clinicians Facility Department ID 2022-03-18 Outpatient [place], STLMLC STLMLC [id number] Common 09:33:00 Kell [id number] [facility] 2021-09-04 Outpatient [place], STLMLC STLMLC [id number] Common 12:10:56 Kell [id number] [facility] 2021-09-04 Outpatient [place], STLMLC STLMLC [id number] Common 11:06:46 Kell [id number] [facility] 2021-09-04 Outpatient [place], STLMLC STLMLC [id number] Common 11:06:09 Kell [id number] [facility] 2021-09-04 Outpatient [place], STLMLC STLMLC [id number] Common 11:00:11 Sandra [id number] [facility] 2021-09-04 Outpatient [place], STLMLC STLMLC [id number] Common 10:59:46 Sandra [id number] [facility] 2019-12-20 Inpatient [facility] DAYS [id number] [facility] 11:30:00 , Art Duke [facility] 2022-03-20 2022-03-20 Office Ca, [facility] [id number] Univers 13:15:00 14:26:54 Visit Jackelyn Real AMERICAN INDIAN POLICY SPECIALIST [id number] ity of REGIONAL [id number] Miguel Angel as MATERNAL [id number] [facility] & CHILD [address] [place] [address] 2022-03-20 2022-03-20 Outpatient R CA, [facility] [id number] Univers 13:15:00 14:26:54 JACKELYN itjaneth o f [facility] 2022-03-20 2022-03-[address] [facility] [id number] Univers 13:15:00 13:15:00 JACKELYN phamy o f [facility] 2022-03-20 2022-03-20 OFFICE STLMLC STLC [id number] Co mmon 00:00:00 00:00:00 VISIT EST Spir it PT LEVEL 3 - [facility] 2022-02-19 2022-02-19 [facility]perto [facility] [id number] Univers 00:00:00 00:00:00 Jackelyn Real AMERICAN INDIAN POLICY SPECIALIST [id number] ity of REGIONAL [id number] Miguel Angel as MATERNAL [id number] [address] 2021-10-27 2021-10-27 Laya [facility] [id number] Univers 00:00:00 00:00:00 Jeremy Turner AMERICAN INDIAN POLICY SPECIALIST [id number] it y of REGIONAL [id number] Miguel Angel as MATERNAL [id number] [address] 2021-10-11 2021-10-[address] [facility] [id number] Univers 09:15:00 09:19:15 JACKELYN munoz o f [facility] 2021-10-11 2021-10-11 [facility] [id number] Univers 09:15:00 09:19:15 Visit Jackelyn Real AMERICAN INDIAN POLICY SPECIALIST [id number] ity of [facility] [id number] Miguel Angel as MATERNAL [id number] [facility] & CHILD [address] [place] [address] 2021-10-11 2021-10-[address] [facility] [id number] Univers 09:15:00 09:15:00 JACKELYN munoz o f [facility] 2021-10-11 2021-10-11 Orders Doctor JOCY [id number] Univers 00:00:00 00:00:00 Only Unassigned, LASHELL [id number] ity of [place] [facility] [id number] Miguel Angel as [id number] [address] 2021-09-20 2021-09-20 [facility] [id number] Common 00:00:00 00:00:00 EST AGE Spirit 18-39 - [facility] 2021-08-12 2021-08-12 Patient [facility] [id number] Univers 00:00:00 00:00:00 Secure Msg Jeremy Turner AMERICAN INDIAN POLICY SPECIALIST [id number] ity of [place] [id number] Miguel Angel as MATERNAL [id number] [facility] CHILD [address] [place] [address] 2021-07-15 2021-07-15 [facility] [id number] Univers 09:45:00 10:04:21 JEREMY munoz of [facility] 2021-07-15 2021-07-15 Office [facility] [id number] Univers 09:37:10 10:04:21 Visit Jeremy Turner AMERICAN INDIAN POLICY SPECIALIST [id number] it y of [facility] [id number] Miguel Angel as MATERNAL [id number] [facility] CHILD [address] [place] [address] 2021-07-15 2021-07-15 Telephone Sonia [facility] [id number] Univers 00:00:00 00:00:00 Dorian Hunt AMERICAN INDIAN POLICY SPECIALIST [id number] ity of REGIONAL [id number] Miguel Angel as MATERNAL [id number] [facility] & CHILD [address] [place] [address] 2021-07-13 2021-07-13 Laya [facility] [id number] Univers 00:00:00 00:00:00 Rospolonda R AMERICAN INDIAN POLICY SPECIALIST [id number] ity of REGIONAL [id number] Miguel Angel as MATERNAL [id number] [facility] & CHILD [address] [place] [address] 2021-07-08 2021-07-08 [facility] 1.2.840.114 [id number] Univers 00:00:00 00:00:00 Sandovala R AMERICAN INDIAN POLICY SPECIALIST [id number] ity of REGIONAL [id number] Miguel Angel as MATERNAL [id number] [facility] & CHILD [address] [place] [address] 2021-07-08 2021-07-08 [facility] 1.2.840.114 [id number] Univers 00:00:00 00:00:00 Jeremy Turner AMERICAN INDIAN POLICY SPECIALIST [id number] it y of REGIONAL [id number] Miguel Angel as MATERNAL [id number] [facility] & CHILD [address] [place] [address] 2021-06-20 2021-06-20 [facility] R [facility] [id number] Univers 13:15:00 13:15:00 JEREMY munoz of [facility] 2021-04-18 2021-04-18 [facility] 1.2.840.114 [id number] Univers 00:00:00 00:00:00 Sandovala R AMERICAN INDIAN POLICY SPECIALIST [id number] ity of REGIONAL [id number] Miguel Angel as MATERNAL [id number] [facility] & CHILD [address] [place] [address] 2021-04-17 2021-04-17 [facility] 1.2.840.114 [id number] Univers 00:00:00 00:00:00 Ambernda R AMERICAN INDIAN POLICY SPECIALIST [id number] ity of REGIONAL [id number] Miguel Angel as MATERNAL [id number] [facility] ical & CHILD [address] [place] [address] 2021-04-16 2021-04-16 Refruperto Scott [facility] 1.2.840.114 [id number] Univers 00:00:00 00:00:00 Amberjohn Hunt AMERICAN INDIAN POLICY SPECIALIST [id number] ity of [facility] [id number] Miguel Angel as MATERNAL [id number] [facility] & CHILD [address] [place] [address] 2021-04-14 2021-04-14 Laya [facility] 1.2.840.114 [id number] Univers 00:00:00 00:00:00 [facility] AMERICAN INDIAN POLICY SPECIALIST [id number] ity of [facility] [id number] Miguel Angel as MATERNAL [id number] [facility] & CHILD [address] [place] [address] 2021-03-21 2021-03-21 [facility] [id number] Co mmon 00:00:00 00:00:00 VISIT EST Spir it PT LEVEL 3 - [facility] 2021-03-20 2021-03-20 Office [facility] [id number] [id number] Univers 09:52:11 11:24:15 Visit Dorian Hunt AMERICAN INDIAN POLICY SPECIALIST [id number] ity of [facility] [id number] Miguel Angel as MATERNAL [id number] [facility] & CHILD [address] [place] [address] 2021-03-20 2021-03-[address] [facility] [id number] Univers 09:30:00 09:30:00 ity of [facility] 2021-03-20 2021-03-20 Orders Doctor JOCY [id number] [id number] Univers 00:00:00 00:00:00 Only Unassigned, LASHELL 350.1.13.10 ity of [place] [facility] [id number] Miguel Angel as [id number] [address] 2021-03-04 2021-03-04 Office Christina VTRAFAT [id number] Univers 09:37:31 11:01:30 Visit Jeremy Turner AMERICAN INDIAN POLICY SPECIALIST [id number] it y of REGIONAL [id number] Miguel Angel as MATERNAL [phone] Med ical & CHILD [address] [facility] 2021-03-04 2021-03-[address] [facility] [id number] Univers 09:30:00 09:30:00 JEREMY munoz [facility] 2021-01-14 2021-01-14 Outpatient [facility] DAYS [id number] [facility] 01:37:00 01:37:00 , Art [facility] 2020-10-30 2020-10-30 Patient Alex [facility] 1.2.840.114 [id number] 00:00:00 00:00:00 Outreach Oscar PRIMARY [id number] Nando [facility] [id number] PAVILLION [id number] 2020-10-30 2020-10-30 Patient Alex [facility] 1.2.840.114 [id number] Univers 00:00:00 00:00:00 Outreach Oscar PRIMARY 350.1.13.[address] [facility] 4.2.7.2.686 [place] [id number] In dical [address] [place] [address] 2020-09-07 2020-09-07 Refill Doctor [facility] 1.2.840.114 [id number] 00:00:00 00:00:00 Unassigned, AMERICAN INDIAN POLICY SPECIALIST 350.1.13.10 [place] REGIONAL 4.2.7.2.686 MATERNAL [id number] & CHILD [address] [place] [address] 2020-09-07 2020-09-07 Refill Doctor [facility] 1.2.840.114 [id number] Univers 00:00:00 00:00:00 Unassigned, AMERICAN INDIAN POLICY SPECIALIST 350.1.13.10 ity of [place] REGIONAL [id number] Miguel Angel as MATERNAL [phone] Med ical & CHILD [address] [place] [address] 2020-07-25 2020-07-[address] [facility] [id number] Univers 10:15:00 10:15:00 DORIAN munoz o [facility] 2020-07-25 2020-07-25 Outpatient STLMLC STLMLC [id number] Common 00:00:00 00:00:00 [facility] 2020-07-25 2020-07-25 Outpatient STLMLC STLMLC [id number] Common 00:00:00 00:00:00 [facility] 2020-07-17 2020-07-17 Outpatient STLMLC STLMLC [id number] Common 00:00:00 00:00:00 [facility] 2020-07-11 2020-07-11 Outpatient R [facility] [id number] Univers 14:45:00 14:45:00 DORIAN munoz sumeet radha [facility] 2020-07-02 2020-07-02 Telephone [facility] [id number] Univers 00:00:00 00:00:00 Dorian R AMERICAN INDIAN POLICY SPECIALIST 350.1.13.10 ity [facility] [id number] Miguel Angel as MATERNAL [phone] Med ical & CHILD [address] [place] [address] 2020-07-02 2020-07-02 [facility] [id number] 00:00:00 00:00:00 Dorian Hunt AMERICAN INDIAN POLICY SPECIALIST 350.1.13.10 REGIONAL 4.2.7.2.686 MATERNAL [id number] & CHILD [address] [place] [address] 2020-06-28 2020-06-28 [facility] [id number] Univers 09:30:00 09:30:00 AMBERJOHN munoz o radha [facility] 2020-04-17 2020-04-17 [facility] [id number] Common 08:40:00 08:40:[address] [facility] 2020-04-12 2020-04-12 Office [facility] 1.2.840.114 [id number] Univers 10:12:18 10:46:25 Visit Dorian Hunt AMERICAN INDIAN POLICY SPECIALIST 350.1.13.10 ity [facility] [id number] Miguel Angel as MATERNAL [id number] Med ical & CHILD [address] [place] [address] 2020-04-12 2020-04-12 Office [facility] 1.2.840.114 [id number] 10:12:18 10:46:25 Visit Dorian Hunt AMERICAN INDIAN POLICY SPECIALIST 350.1.13.10 [facility] [id number] MATERNAL [id number] & CHILD [address] [facility] 2020-04-12 2020-04-[address] [facility] [id number] Univers 10:30:00 10:30:00 DORIAN munoz o f [facility] 2020-04-12 2020-04-12 Orders Doctor JOCY 1.2.840.114 [id number] Univers 00:00:00 00:00:00 Only Unassigned, LASHELL 350.1.13.10 ity of [place] [facility] 4.2.7.2.686 Miguel Angel as [id number] [address] 2020-02-20 2020-02-20 Outpatient [facility] [id number] Common 14:54:00 14:54:00 [facility] [address] [facility] 2020-02-16 2020-02-16 Outpatient [facility] [id number] Common 14:20:00 14:20:00 [facility] [address] [facility] 2020-02-14 2020-02-14 Outpatient [facility] [id number] Common 13:49:00 13:49:00 [facility] [address] [facility] 2020-01-13 2020-01-13 Outpatient [facility] [id number] Common 10:00:00 10:00:00 [facility] [address] [facility] 2019-12-08 2019-12-[address] [facility] [id number] Univers 08:30:00 08:30:00 SANDOVALA veroy o f [facility] 2019-12-07 2019-12-07 Telephone [facility] [id number] Univers 00:00:00 00:00:00 Dorian Hunt AMERICAN INDIAN POLICY SPECIALIST 350.1.13.10 ity of REGIONAL [id number] Miguel Angel as MATERNAL [phone] Med ical & CHILD [address] [place] [address] 2019-11-30 2019-11-30 Outpatient [facility] [id number] Common 15:55:00 15:55:[address] [facility] 2019-11-26 2019-11-26 Outpatient [facility] [id number] Common 13:26:00 13:26:[address] [facility] 2019-11-25 2019-11-25 Outpatient [facility] [id number] Common 13:46:00 13:46:[address] [facility] 2019-10-14 2019-10-14 Outpatient [facility] [id number] Common 08:00:00 08:00:[address] [facility] 2019-09-19 2019-09-19 Outpatient [facility] [id number] Common 13:00:00 13:00:[address] [facility] 2019-08-22 2019-08-22 Outpatient [facility] [id number] Common 14:00:00 14:00:[address] [facility] 2019-07-11 2019-07-11 Outpatient [facility] [id number] Common 14:40:00 14:40:[address] [facility] 2019-06-13 2019-06-13 Outpatient [facility] [id number] Common 08:00:00 08:00:[address] [facility] 2019-05-30 2019-05-30 Outpatient [facility] [id number] Common 11:00:00 11:00:[address] [facility] Results Test Description Test Time Test Comments Results Result Comments Source SURGICAL SPECIMENS 2021-01-15 17:27:00 Test Item Value Reference Range Interpretation Comme nts SURGICAL RUN SPECIMENS DATE: 01/15/21 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 No mass lesion is seen. Automatic Maintainer sections are submitted as follows: A1, cystic duct margin; A2, gallbladder wall. PG/se - Signed SIGNATURE ON FILE JenniferRinku G 01/15/21 172 7 END OF REPORT - XR FLUOROSCOPY 0-60 [id number] 12:13:00 [facility] : 1985 Sex: FPatient Name: CYNDIE TORRES Unit No: [id number] EXAMS: CPT CODE: [id number] XR FLUOROSCOPY 0-60MIN 70138 Examination: Operative fluoroscopy Location code: S17 Comparison: [...] Printed Date/Time: 01/14/2021 (1216) Name: CYNDIE TORRES [facility] Phys: Art Foss [address] : 1985 Age: 35 Sex: [place] [address] Loc: P.SRG Exam Date: 01/14/2021 Status: REG [facility] PH: FAX: PAGE 1 Signed ReportCOVID Asymptomatic IH [id number] 11:14:00 Test Item Value Reference Interpretation Comments [...] i ts performancechar acteristics were determined by [facility]. Thi s test has notbeen FDA [...] Unknown? UnknownAge at collection: Y COMPREHENSIVE METABOLIC [id number] 11:09:00 Test Item Value Reference Range Interpretation [...] Range Feb code = ALKP) 2020 PROTHROMBIN [id number] 11:04:00 Test Item Value Reference Range Interpretation [...] 2.5-3.5recurren t systemic emboli sm. THROMBOPLASTIN TIME [id number] 11:04:00 Test Item Value Reference Range Interpretation Comments THROMBOPLASTIN TIME 35.1 SECONDS 23.8-34.8 H INTERPRE TATIVE PARTIAL (test code = DATA:Th erapeutic PTT) range: Unfractionated heparin:55 - 80 seconds Argatroban:1.5 to 3 times the basel ine PTT UR HCG [id number] 10:54:00 Test Item Value Reference Range Interpretation Comments UR HCG QUAL (test code = HCGQLU) NEGATIVE NEGATIVE CBC W/AUTO [id number] 10:48:00 Test Item Value Reference Range Interpretation [...] BA#) 0.03 x10 3/uL 0.0-0.20 N SURGICAL [id number] 13:53:00 RUN DATE: 12/22/19 [facility] - LAB PAGE 1 RUN TIME: 1353 Specimen Inquiry RUN USER: INTERFACE ------- -----PATIENT: CYNDIE TORRES LOC: PTalita POD B U #: [id number] AGE/SX: 34/F ROOM: [facility] RE12/20/19REG DR: Art Allen MD : [birth year] BED: 1 DIS: 12/21/19 STATUS: DIS IN TLOC: - SPEC #: [id number] RECD: 12/20/19-1308 STATUS: SOUT REQ #: [id number] PARI: 12/20/19-1243 [facility] DR: Art Allen MD ENTERED: 12/20/19-1310 SP TYPE: SURG OTHR [...] No lesions or masses are identified grossly. Automatic Maintainer sections are submitted in a single cassette. RAB/th MICROSCOPIC DESCRIPTION Microscopic performed. Signed SIGNATURE ON [facility] Idalmis Quiros MD 12/22/19 1353 END OF REPORT BASIC METABOLIC [id number] 06:47:00 Test Item Value Reference Range Interpretation [...] code 9.0 mg/dL 8.8-10.2 N = CA) [id number] 06:47:00 Test Item Value Reference Range Interpretation Comments PHOSPHOROUS (test code = PHOS) 3.4 mg/dL 2.7-4.5 N [id number] 06:47:00 Test Item Value Reference Range Interpretation Comments MAGNESIUM (test code = MAG) 2.2 mg/dL 1.4-2.6 N CBC W/AUTO [id number] 06:19:00 Test Item Value Reference Range Interpretation [...] 0.02 x10 3/uL 0.0-0.20 N UR HCG [id number] 10:27:00 Test Item Value Reference Range Interpretation Comments UR HCG QUAL (test code = HCGQLU) NEGATIVE NEGATIVE PROTHROMBIN [id number] 12:54:00 Test Item Value Reference Range Interpretation [...] 2.5-3.5recurren t systemic emboli sm. THROMBOPLASTIN TIME [id number] 12:54:00 Test Item Value Reference Range Interpretation Comments THROMBOPLASTIN TIME 29.9 SECONDS 26.0-35.9 N INTERPRE TATIVE PARTIAL (test code = DATA:Th erapeutic PTT) range: Unfractionated heparin:47 - 71 seconds Argatroban:1.5 to 3 times the basel ine PTT Coronavirus 2019 nCoV [id number] 12:27:00 Test Item Value Reference Range Interpretation Comments Coronavirus 2019 nCoV Bedside (test Negative NEGATIVE code = [id number]) CBC W/AUTO [id number] 11:51:00 Test Item Value Reference Range Interpretation [...] 0.02 x10 3/uL 0.0-0.20 N COMPREHENSIVE METABOLIC [id number] 11:45:00 Test Item Value Reference Range Interpretation [...] 32-104 N PHOSPHATASE (test code = ALKP) Notes Date/Time Note Provider Source 2021-01-14 09:34:00-00:00 [id number] [facility] [address] [place] [address] PATIENT NAME: CYNDIE TORRES ADMIT DATE: 02/27 ACCOUNT NO: [id number] ROOM NO: AGE: 35 REPORT TYPE: OPERATIVE REPORT SEX: F ADMITTING PHYSICIAN: ATTENDING PHYSICIAN:Art Allen MD OPERATION DATE: 01/14/2021 PREOPERATIVE DIAGNOSES: Chronic cholecystitis wi th cholelithiasis. POSTOPERATIVE DIAGNOSES: Chronic cholecystitis w ith cholelithiasis. PROCEDURE PERFORMED: Laparoscopic cholecystectom y with intraoperative cholangiogram. SURGEON: Art Allen MD LEAD SHOP OPERATOR: Rosemary Agarwal, licensed surgical services director. ANESTHESIA: ESTIMATED BLOOD LOSS: Minimal. INDICATION FOR PROCEDURE: The patient is a 35-year-old woman with a history of intermittent right upper fadi drant abdominal pain. The patient was also found to have multiple gallstones on preoperative ultraso und. Her overall clinical picture was consistent with chronic cholecystiti s with cholelithiasis. PROCEDURE IN DETAIL: The patient was given preop erative IV antibiotics and subcutaneous Lovenox. She was brought in the ope rating room and placed on the operating table in the supine position. Sequenti al compression devices were applied to both legs and activated. She was plac ed under general endotracheal anesthesia and her abdomen was sterilely prepped and draped. We injected the skin and subcutaneous tissues over the left subc ostal area at about the midclavicular line with Marcaine and we made a 5 -mm skin incision with a scalpel. We passed a 5-mm optical trocar through the abdominal wall using a laparoscope to visualize each layer of the abdom inal wall as was inserted. We insufflated the abdomen to 15 mmHg pressure with CO2. We then placed a 12-mm port at the umbilicus and two 5-mm ports in the right lateral subcostal area under direct laparoscopic vision using Marcaine for local anesthesia. We visualized the upper abdomen and the patient's g astric sleeve was completely unremarkable. We then retracted the gallbladder superiorly and laterally with graspers. We used a LigaSure device to dissect t he cystic duct and cystic artery. We also used the Lig aSure device to dissect the bottom one-third of the gallbladder off of the liver bed. At this point, we could see the anatomy of the cystic artery and cystic duct very nicely. Tadeo alfaro placed a clip on the cystic duct just below the infundib ulum of the gallbladder. We made a small opening in the cystic duct just below the clip with laparos copic scissors. We inserted a cholangiogram catheter into the cystic duct and we shot a cholangiogram under PATIENT NAME: CYNDIE TORRES ACCOUNT #: [id number] fluoroscopy by injecting half strength contrast into the biliary tree. The anatomy of the biliary tree was unremark able. There were no stones seen in the common bile duct and there w as rapid flow of contrast from the common bile duct into the duodenum. We removed the cholan giogram catheter. We placed 2 clips on the cystic duct just below t he opening in the duct and we divided the duct with laparoscopic scissors. We also placed 2 clips on the cystic artery and we divided the cystic artery just above the clips, leaving 2 clips on the cystic artery stump and 2 clips on the cystic duct stump. We dissected the gallbladder off of the liver with the [employer] gaSure device. We placed the gallbladder into a bag and removed the gallbladder from the abdomen thr ough the 12 mm umbilical port site. We irrigated and suctioned the right upper quadrant and checked for bleeding, it was found to be completely hemostat ic. We closed the umbilical port site fascial opening with 2 sutures of #1 V icryl using a suture passer under direct laparoscopic vision. We deflated th e abdomen and removed the ports. We closed the skin incisions with 4-0 Monocryl suture in a subcuticular fashion. We applied Dermabond to the wounds. The patient was awakened from general anesthesia, extubated, and taken to PACU in stable condition. Dictated By: Art Allen MD WT: OP:P.RAMIREZ/ARSALAN/JACOB Conf#: [id number]/DID#: [id number] Authenticated by Art Allen MD On 11:44:16 AM at 1144 PATIENT NAME: CYNDIE TORRES ACCOUNT #: [id number] 2021-01-10 10:52:00-00:00 [id number] [address] PATIENT NAME: CYNDIE TORRES ADMIT DATE: ACCOUNT NO: [id number] ROOM NO: AGE: 35 REPORT TYPE: eELECTROCARDIOGRAM SEX: F ADMITTING PHYSICIAN: ATTENDING PHYSICIAN: Art Allen MD Order: [id number] Test Reason : SDS Test Date/Time Stamp: ThuJan 10 2021 10:52:27 Blood Pressure : / mmHG Vent. Rate : 053 BPM Atrial Rate : 053 BPM P-R Int : 168 ms QRS Dur : 084 ms QT Int : 434 ms P-R-T Axes : 013 041 020 degree s QTc Int : 407 ms Sinus bradycardia with marked sinus arrhythmia Abnormal ECG No previous ECGs available Confirmed by CRISTY WHELAN MD ([id number]) on 2020 1:11:47 PM Referred By: Art Allen Confirmed by:ALEX WHELAN MD at 1312 PATIENT NAME: CYNDIE TORRES ACCOUNT #: [id number] 2019-12-22 11:20:00-00:00 [id number] [address] PATIENT NAME: CYNDIE TORRES ADMIT DATE: 12/08 09/29 ACCOUNT NO: [id number] ROOM NO: [facility]82 AGE: 34 REPORT TYPE: OPERATIVE REPORT SEX: F ADMITTING PHYSICIAN:Art Allen MD ATTENDING PHYSICIAN:Art Allen MD OPERATION DATE: 12/20/2019 DATE OF PROCEDURE: 12/20/2019. PREOPERATIVE DIAGNOSIS: Pain, status post laparo scopic gastric sleeve. POSTOPERATIVE DIAGNOSIS: Pain, status post lapar oscopic gastric sleeve. PROCEDURE PERFORMED: Placement of infusion judah ter into the abdominal wall x 2. SURGEON: Art Allen M.D. ANESTHESIA: General endotracheal. ESTIMATED BLOOD LOSS: None. INDICATIONS FOR PROCEDURE: The patient is a 34 w ho underwent a laparoscopic sleeve gastrectomy that requires multiple port p lacements in the mid abdomen. It causes significant amount of postoperative pa in. The patient is also morbidly obese, causing an i ncreased risk for deep vein thrombosis and pneumonia related to postoperative pain. PROCEDURE IN DETAIL: After t he laparoscopic sleeve gastrectomy was completed, I passed two dilators and amin ths through a left subcostal skin incision into the abdominal wall and passed th e sheaths down to the umbilical area. I removed the dilators, leaving the sheath s in place. I passed the catheters into the sheaths and removed the sheaths, leaving the cat heters in place in the abdominal wall. Dictated By: Art Allen MD WT: OP:P.HIM/ARSALAN/NTS Conf#: [id number]/DID#: [id number] Authenticated by Art Allen MD On 12:40:52 PM at 1241 PATIENT NAME: CYNDIE TORRES ACCOUNT #: [id number] 2019-12-22 11:19:00-00:00 [id number] [address] PATIENT NAME: CYNDIE TORRES ADMIT DATE: 12/08 09/29 ACCOUNT NO: [id number] ROOM NO: P.0582 AGE: 34 REPORT TYPE: CONSULTATION SEX: F ADMITTING PHYSICIAN:Art Allen MD ATTENDING PHYSICIAN:Art Allen MD CONSULTATION DATE: 12/20/2019 CONSULTING PHYSICIAN: Art Allen MD PREOPERATIVE DIAGNOSES: 1. Gastroesophageal reflux disease. 2. Morbid obesity. POSTOPERATIVE DIAGNOSES: 1. Gastroesophageal reflux disease. 2. Morbid obesity. PROCEDURE PERFORMED: 1. Laparoscopic sleeve gastrectomy. 2. Laparoscopic hiatal hernia repair. 3. Laparoscopic omentopexy. 4. Esophagogastroduodenoscopy. SUREGEON: Art Allen MD. LEAD SHOP OPERATOR: Rosemary Agarwal, licensed surgical services director. ANESTHESIA: General endotracheal with local. ESTIMATED BLOOD LOSS: Minimal. INDICATION FOR PROCEDURE: The patient is a 34-year-old woman with a history of gastroesophageal reflux disease and a hiatal her luis seen on preoperative endoscopy, both related to her morbid obesity. T he patient has a body mass index of 55. PROCEDURE IN DETAIL: The patient was given preop erative IV antibiotics and subcutaneous heparin and was brought int o the operative room and placed on the operating table in the supine position. Sequenti al compression devices were applied to both legs and activated. The patient was placed under general endotracheal anesthesia and the abdomen was ster ilely prepped and draped. We injected the skin and subcut aneous tissues over the left lateral subcostal area with Marcaine. We made a 5 mm incision with the scalpel. We passed 5 mm Optiview trocar through the abdominal wall using a laparoscope to visualize each layer of the abdominal wall as port was inserted. We insufflated the abdomen to 15 mmHg of pressure with CO2. We placed a 15 mm port and a 5 mm port at the umbilicus and a 5 mm port in the right subcostal area under direct laparoscopic vision using Marcaine for local anesthesia. We u sed the LigaSure device to PATIENT NAME: CYNDIE TORRES ACCOUNT #: [id number] dissect the greater omentum off of the g reater curvature of the stomach from 3 cm proximal to the pylorus u p to the angle of His. We dissected the gastric fat pad off of the proximal stomach as well. We used a LigaSure device to divide the gastrohepatic ligament and to dissect the di stal esophagus and proximal stomach off the right and left crura pos terior to the esophagus. We inserted a 40-Prydeinig bougie into the mouth, passed it down the esophagus and into the stomach, repositioned the kaye ugie along the lesser curvature with the tip of the bougie until the pylorus. We placed a laparoscop ic Covidien stapler with a 60 mm black load and Roseline-Strip staple line reinfor cement on the stomach 3 cm proximal to the pylorus and direct the stapler t owards the angle of His, bringing the stapler adjacent to the bougie. Aft er firing the first stapler load, we continued firing the laparoscopic Covid ien stapler with 60 mm black loads and Roseline-Strip staple line reinforcement a long the bougie until the stomach was completely divided up the angle of H is, leaving a 1 cm segment of stomach between the esophagus and the staple shana e. We used the Endostitch device and a 2-[address] a rsoevb-om-gdkaq suture, bringing the right and left crura together posterior to the e sophagus to repair the hiatal hernia. We closed the hiatus tight enough that t he esophagus was touching the muscle of the diaphragm. We removed the bougie and inserted an upper endoscope into the mouth, passed it down the esophagus and into the gastric sleeve. We inflated the gastric sleeve with air and past saline staple line and we saw no leakage of air from the staple line. The inside of the sleeve was hemostatic and properly constructed. We removed the upper e ndoscope. We irrigated and suctioned the abdomen and checked for bl eeding. It was found to be hemostatic. We sutured the omentum to the lateral aspect of the distal sleeve with a 2-0 Vicryl suture to keep sleeve straight. We removed the stomach specimen from the abdomen through the 15 mm po rt site. We closed the fascial opening of the 15 mm port site with a suture passer and #1 Vicryl sut ure under direct laparoscopic vision. We deflate the abdomen and removed the p orts. We closed the skin incisions with 4-0 Monocryl suture in a subcutic ular fashion. We applied Dermabond to the wounds. The patient was awaken ed from general anesthesia, extubated and taken to the PACU in stable condit ion. Dictated By: Art Allen MD WT: CON:PPATEL/ARSALAN/JACOB Conf#: [id number]/DID#: [id number] Authenticated by Art Allen MD On 12:41:00 PM at 1241 PATIENT NAME: CYNDIE TORRES ACCOUNT #: [id number] 2019-12-21 08:56:00-00:00 [id number] [facility] [address] [place] [address] PATIENT NAME: CYNDIE TORRES ADMIT DATE: 12/08 09/29 ACCOUNT NO: [id number] ROOM NO: P.0582 AGE: 34 REPORT TYPE: DISCHARGE SUMMARY SEX: F ADMITTING PHYSICIAN:Art Allen MD ATTENDING PHYSICIAN:Art Allen MD ADMISSION DATE: 12/20/2019 DISCHARGE DATE: 12/21/2019 01:00:00 ADMISSION DIAGNOSES: Morbid obesity with hiatal hernia. DISCHARGE DIAGNOSES: Morbid obesity with hiatal hernia. PROCEDURE PERFORMED: Laparoscopic sleeve gastrectomy and hiatal hernia repair. HISTORY AND HOSPITAL COURSE: The patient is a 34-year-old woman who underwent a laparoscopic sleeve gastrectomy and hiatal herni a repair. The patient had an uneventful postoperative cou rse and was discharged home on postoperative day #1 on a bariatric liquid diet that she will maintain for 2 weeks. She will follow up with us in the office in 2 weeks. She will take Tylenol with Codeine elixir for pain, Zofran for nausea and Lovenox for DVT prophylaxis. Please see her home medication reconciliation fo for other medications. Dictated By: Art Allen MD WT: DS:CHRISTINA/ARSALAN/JACOB Conf#: [id number]/DID#: [id number] Authenticated by Art Allen MD On 12:40:51 PM at 1241 PATIENT NAME: CYNDIE TORRES ACCOUNT #: [id number]
--- NOTE | 2023-01-06 11:30 | EDPHYS ---
Physician Documentation [facility] Name: Cyndie Soliz Age: 37 yrs Sex: Female : 1985 Arrival Date: 01/06/2023 Time: 10:41 Bed 9 Private MD: ED Physician Bhargav Couch HPI: 01/06 11:59 This 37 yrs old Female presents to ER via Ambulatory with complaints of Sore Throat. kb 11:59 The patient presents with sore throat. The patient describes throat pain as constant. kb Onset: The symptoms/episode began/occurred 5 day(s) ago. Severity of symptoms: At their worst the symptoms were mild, moderate, in the emergency department the symptoms are unchanged. Modifying factors: The symptoms are alleviated by nothing, the symptoms are aggravated by swallowing, Patient's oral intake status: limited fluid intake, limited food intake. Associated signs and symptoms: Pertinent positives: chills, cough, earache, fever, flu-like symptoms, malaise, Sore throat. The patient has not experienced similar symptoms in the past. The patient has not recently seen a physician. Historical: - Allergies: 11:41 No Known Allergies; hb - PMHx: 11:41 PCOS; hb - Immunization history:: Adult Immunizations up to date. - Social history:: Smoking status: Patient denies any tobacco usage or history of. ROS: 11:58 Abdomen/GI: Negative for abdominal pain, nausea, vomiting, diarrhea, and constipation. kb 11:58 Constitutional: Positive for body aches, chills, fatigue, fever, malaise. 11:58 ENT: Positive for ear pain, sinus congestion, sore throat. 11:58 Respiratory: Positive for cough. 11:58 All other systems are negative. Exam: 11:58 Constitutional: This is a well developed, well nourished patient who is awake, alert, kb and in no acute distress. Head/Face: Normocephalic, atraumatic. Cardiovascular: Regular rate and rhythm with a normal S1 and S2. No gallops, murmurs, or rubs. No pulse deficits. Respiratory: Respirations even and unlabored. No increased work of breathing. Talking in full sentences Skin: Warm, dry with normal turgor. Normal color. MS/ Extremity: Pulses equal, no cyanosis. Neurovascular intact. Full, normal range of motion. Neuro: Awake and alert, GCS 15, oriented to person, place, time, and situation. Moves all extremities. Normal gait. 11:58 ENT: Posterior pharynx: Airway: normal, Tonsils: bilaterally enlarged, with erythema, with exudate, Uvula: normal, midline, swelling, that is moderate, erythema, that is moderate, exudate, that is marked. Vital Signs: 11:39 BP 134 / 90; Pulse 64; Resp 16; Temp 98.4; Pulse Ox 100% on R/A; Weight 115.67 kg; hb Height 5 ft. 8 in. ; Pain 8/10; 11:39 Body Mass Index 38.77 (115.67 kg, 172.72 cm) hb 11:39 Pain Scale: Adult hb MDM: 11:20 Patient medically screened. kb 11:59 Differential diagnosis: pharyngitis, tonsillitis, strep. Data reviewed: vital signs, kb nurses notes. Counseling: I had a detailed discussion with the patient and/or guardian regarding: the historical points, exam findings, and any diagnostic results supporting the discharge/admit diagnosis, the need for outpatient follow up, a family practitioner, to return to the emergency department if symptoms worsen or persist or if there are any questions or concerns that arise at home. 01/06 11:30 Order name: Strep karol Administered Medications: No medications were administered Disposition: 17:06 Co-signature as Attending Physician, Bhargav Couch MD I reviewed the patient's care rn provided by the Advanced Practice Provider and agree with the diagnosis and treatment plan. Disposition Summary: 01/06/23 11:30 Discharge Ordered Location: Home kb Condition: Stable kb Diagnosis - Streptococcal pharyngitis kb Followup: kb - With: Emergency Department - When: As needed - Reason: Worsening of condition Followup: kb - With: Private Physician - When: 2 - 3 days - Reason: Recheck today's complaints, Continuance of care, Re-evaluation by your physician Discharge Instructions: - Discharge Summary Sheet kb - Strep Throat, Adult, [id number]-pa-Hpyz kb Forms: - Medication Reconciliation Form kb - Thank You Letter kb - Antibiotic Education kb - Prescription Opioid Use kb Prescriptions: - Augmentin 875-125 mg Oral Tablet - take 1 tablet by ORAL route every 12 hours for 10 days; 20 tablet; Refills: 0, kb Product Selection Permitted Signatures: Dispatcher [employer] Imani Francisco, BASEBALL WINDER-C BASEBALL WINDER-Ckb Michelle Loja, RN RN Bhargav Bee MD MD rn Baxter, Heather, RN RN miguel
--- NOTE | 2023-01-06 12:39 | ER ---
Nurse's Notes [facility] Name: Cyndie Soliz Age: 37 yrs Sex: Female : 1985 Arrival Date: 01/06/2023 Time: 10:41 Bed 9 Private MD: Diagnosis: Streptococcal pharyngitis Presentation: 01/06 11:39 Chief complaint: Sore throat x 5 days. Coronavirus screen: At this time, the client hb does not indicate any symptoms associated with coronavirus-19. Ebola Screen: No symptoms or risks identified at this time. Initial Sepsis Screen: Does the patient meet any 2 criteria? No. Patient's initial sepsis screen is negative. Does the patient have a suspected source of infection? No. Patient's initial sepsis screen is negative. Risk Assessment: Do you want to hurt yourself or someone else? Patient reports no desire to harm self or others. Onset of symptoms was January 01, 2023. 11:39 Method Of Arrival: Ambulatory hb 11:39 Acuity: SHANIKA 4 hb Triage Assessment: 12:00 General: Appears in no apparent distress. General: Behavior is calm, cooperative, iw appropriate for age. Pain: Complains of pain in neck. EENT: Throat is reddened. Neuro: No deficits noted. Cardiovascular: No deficits noted. Respiratory: No deficits noted. GI: No signs and/or symptoms were reported involving the gastrointestinal system. : No signs and/or symptoms were reported regarding the genitourinary system. Derm: No deficits noted. Historical: - Allergies: 11:41 No Known Allergies; hb - PMHx: 11:41 PCOS; hb - Immunization history:: Adult Immunizations up to date. - Social history:: Smoking status: Patient denies any tobacco usage or history of. Screenin:36 [facility] ED Fall Risk Assessment (Adult) History of falling in the last 3 months, iw including since admission No falls in past 3 months (0 pts). Abuse screen: Denies threats or abuse. Denies injuries from another. Nutritional screening: No deficits noted. Tuberculosis screening: No symptoms or risk factors identified. Assessment: 12:36 Reassessment: PT DC HOME AMBULATORY. Respiratory: Airway is patent Respiratory effort iw is even, unlabored, Breath sounds are clear. Vital Signs: 11:39 BP 134 / 90; Pulse 64; Resp 16; Temp 98.4; Pulse Ox 100% on R/A; Weight 115.67 kg; hb Height 5 ft. 8 in. ; Pain 8/10; 11:39 Body Mass Index 38.77 (115.67 kg, 172.72 cm) hb 11:39 Pain Scale: Adult hb ED Course: 10:44 Patient arrived in ED. mr 11:20 [facility] kb 11:20 Bhargav Couch MD is Attending Physician. kb 11:41 Triage completed. hb 11:41 Arm band placed on. hb 11:42 Strep Sent. hb 12:36 Patient has correct armband on for positive identification. iw 12:36 No provider procedures requiring assistance completed. Patient did not have IV access iw during this emergency room visit. Administered Medications: No medications were administered Medication: 12:36 VIS not applicable for this client. iw Outcome: 11:30 Discharge ordered by . kb 12:36 Discharged to home ambulatory, with family. iw 12:36 Condition: stable 12:36 Discharge instructions given to patient, Instructed on discharge instructions, follow up and referral plans. medication usage, Demonstrated understanding of instructions, follow-up care, medications, Prescriptions given X 1. 12:38 Patient left the ED. iw Signatures: Imani Freedman FNP-C FNP-Ckb Rivera, Mary Michelle Loja, RN RN iw Sabrina Casillas, RN RN hb
[2023-01-06 12:46] VITALS: BP 134/90; TEMP 98.4; O2SAT 100
== END 2023-01-06 12:38 | disposition home or self-care (01) ==
LOC: ER 10:41
DX: J02.0 Streptococcal pharyngitis (principal)
CPT/HCPCS: 87070; 87081; 99283

== ENCOUNTER 2023-03-11 09:22 | Emergency (ER) | payer OTHER ==
--- OUTSIDE RECORDS SUMMARY | 2023-03-11 09:27 | XMS REPORT | Continuity of Care Document ---
:1985 Author Organization [facility] t Address [address] [facility] [place] [address] Care Team Providers Name Role Phone Dorian Fletcher Primary Care Physician [phone] Kell Hope Attending Clinician Unavailable Sandra Vaughn Attending Clinician Unavailable Art Allen Attending Clinician Unavailable Jackelyn Douglass Attending Clinician [phone] JCAKELYN PENALOZA Attending Clinician Unavailable Jeremy Cabrera Attending Clinician Doctor Unassigned, Kerr Attending Clinician Unavailable JEREMY VASQUEZ Attending Clinician Unavailable Dorian Fletcher Attending Clinician Oscar Johnson DO Attending Clinician DORIAN SCOTT Attending Clinician Unavailable [place], Kell Shira CRANE LADLE PERSON Admitting Clinician Unavailable Payers Payer Name Policy Type Policy Number Effective Date Expiration Date Soham Enciso [id number] 2019 [facility] 00:00[facility]00 [facility] Problems Condition Condition Condition Status Onset Resolution [...] Branch contracept contracept delisa delisa management management [id number] Other Problem Active Common fatigue [facility] [id number] Seasonal Problem Active Comm on allergies [facility] [id number] BMI Problem Active Common 40.0-44.9[facility] [id number] Amenorrhea Problem Active Com mon [facility] [id number] History of Problem Active Co mmon bariatric [facility] surgery [facility] [id number] Acute Problem Active Common cystitis [facility] hematuria [facility] [id number] Morbid Problem Active Common obesity [facility] [id number] Vitamin D Problem Active Comm on deficiency [facility] Menorrhagi Menorrhagi Problem Active C ommon a a [facility] [id number] Izabel Problem Active Common albicans [facility] infection [facility] [id number] BMI Problem Active Common 39.0-39.9, [facility] Allergies, Adverse Reactions, Alerts Allergy Allergy Status Severity Reaction(s) Onset Inactive Treating Comm ents Source Name Type Date Date Clinician No Known DA Active U [facility]15 [facility] 00[facility]: [facility] No Known DA Active U [facility] Allergie 12-15 [facility] 00:00: [facility] Social History Social Habit Start Date Stop Date Quantity Comments Source History of [facility] - Tobacco Use [facility] Sex Assigned At Common [facility] bal - [facility] History SDOH University o f Alcohol Frequency [facility] edical Branch History SDOH University o f Alcohol Std [place] [facility] History [facility] o f Alcohol Binge [facility] al Branch Exposure to 2022-03-10 2022-03-20 Not sure [facility] SARS-CoV-2 00:00:00 13:42:00 [facility] (event) [place] Alcohol intake 2022-03-20 2022-03-20 .14 /d University 00:00:00 00:00:00 [facility] Alcohol Comment 2021-03-04 2021-03-04 social Universit y of 00:00:00 00:00:00 [facility] Tobacco use and 2015-06-26 2015-06-26 Smokeless tobacco Un iversity of exposure 00:00:00 00:00:00 non-user [facility] Smoking Status Start Date Stop Date Source Never Smoker [facility] Medications Ordered Filled Start Stop Current Ordering Indication Dosage Frequency Signature Comments Components Source Medication Medication Date Date Medication? Clinician (SIG) Name Name John Yes [id number] 1{each} Insert 1 Univers 0.12-0.015 8-11 Each into ity of mg/24 hr 00:00: vagina [place] vaginal 00 once every Medica l insert month. Branch Insert vaginally and leave in place for 3 consecutiv e weeks, then remove for 1 week. NUVARING Yes [id number] INSERT ONE Univers 0.12-0.015 7-13 RING INTO ity of mg/24 hr 00:00: VAGINA [place] vaginal 00 ONCE EVERY Medica l insert MONTH. AND Branch LEAVE IN PLACE FOR 3 CONSECUTIV E WEEKS, THEN REMOVE FOR 1 WEEK. buPROPion Yes 100mg Take 100 Uni vers 100 mg 7-08 mg by ity of tablet 00:00: mouth 2 00 (two) Medical times [place] daily. ergocalcife Yes TAKE ONE Un daniela [...] Kell 1 tablet Common HCl HCl 1-04 [place] Spirit 00:00: - [facility] 00 [facility] Tri-Sprinte Tri-Sprinte Yes Kell TAKE ONE Common c c [place] (1) Spirit TABLET(S) - CHI BY MOUTH ONCE A [facility] buPROPion buPROPion No buPROPion HCl 100 MG HCl 100 MG HCl 100 MG Nystatin Nystatin No Nystatin 101531 [id number] UNIT/GM UNIT/GM UNIT/GM Tri-Sprinte Tri-Sprinte No Tri-Sprint c c ec 0.18/0.215/ 0.18/0.215/ 0.18/0.215 0.25 MG-35 0.25 MG-35 /0.25 MCG MCG MG-35 MCG NuvaRing NuvaRing No NuvaRing 0.12-0.015 0.12-0.015 0.12-0.015 MG/24HR MG/24HR MG/24HR NuvaRing NuvaRing No NuvaRing 0.12-0.015 0.12-0.015 0.12-0.015 MG/24HR MG/24HR MG/24HR buPROPion buPROPion No buPROPion HCl 100 MG HCl 100 MG HCl 100 MG Nystatin Nystatin No Nystatin 631327 488548 787274 UNIT/GM UNIT/GM UNIT/GM Vitamin D Vitamin D No 1{capsu Vitamin D (Ergocalcif (Ergocalcif le} (Ergocalci ginny) 1.25 ginny) 1.25 ferol) MG (14912 MG (24328 1.25 MG UT) UT) (39085 UT) NuvaRing NuvaRing No NuvaRing 0.12-0.015 0.12-0.015 0.12-0.015 MG/24HR MG/24HR MG/24HR Vitamin D Vitamin D No 1{capsu Vitamin D (Ergocalcif (Ergocalcif le} (Ergocalci ginny) 1.25 ginny) 1.25 ferol) MG (82336 MG (61239 1.25 MG UT) UT) (71921 UT) buPROPion buPROPion No buPROPion HCl 100 MG HCl 100 MG HCl 100 MG Nystatin Nystatin No Nystatin 688304 188144 035859 UNIT/GM UNIT/GM UNIT/GM Immunizations Ordered Filled Immunization Date Status Comments [facility] e Immunization Name Name [facility] 2017-02-03 Completed [facility] 00:00:00 [facility] 2017-01-14 Completed [facility] 11:14:00 [facility] 2017-01-14 Completed [facility] 11:14: [facility] - 2017-01-14 Completed [facility] 11:14:00 [facility] 1999-08-10 Completed [facility] 00:00:00 [facility] Vital Signs Vital Name Observation Time Observation Value Comments Source Systolic blood 2022-03-20 18:41:00 120 mm[Hg] [facility] Diastolic blood 2022-03-20 18:41:00 76 mm[Hg] [facility] Heart rate 2022-03-20 18:41:00 62 /min [facility] Body temperature 2022-03-20 18:41:00 36.5 [facility] Respiratory rate 2022-03-20 18:41:00 18 /min [facility] Body height 2022-03-20 18:41:00 172.7 cm [facility] Body weight 2022-03-20 18:41:00 111.585 kg [facility] BMI 2022-03-20 18:41:00 37.40 kg/m2 [facility] height 2022-03-20 09:40:00 66 [in_i] Common S pirit [facility] weight 2022-03-20 09:40:00 245.6 [lb_av] [facility] temperature 2022-03-20 09:40:00 97.1 [degF] Common S pirit - [facility] bmi 2022-03-20 09:40:00 39.64 kg/m2 Common S pirit [facility] oximetry 2022-03-20 09:40:00 100 % [facility] respiratory rate 2022-03-20 09:40:00 16 /min Comm on [facility] blood pressure 2022-03-20 09:40:00 124 mm[Hg] [facility] - systolic [facility] blood pressure 2022-03-20 09:40:00 71 mm[Hg] [facility] - diastolic [facility] temperature 2021-09-20 08:40:00 97.9 [degF] [facility] bmi 2021-09-20 08:40:00 38.73 kg/m2 [facility] oximetry 2021-09-20 08:40:00 99 % [facility] respiratory rate 2021-09-20 08:40:00 18 /min Comm on [facility] blood pressure 2021-09-20 08:40:00 136 mm[Hg] Common [facility] - systolic [facility] blood pressure 2021-09-20 08:40:00 65 mm[Hg] [facility] - diastolic [facility] height 2021-09-20 08:40:00 66 [in_i] Common S pirit [facility] weight 2021-09-20 08:40:00 240 [lb_av] Common S pirit [facility] height 2021-03-21 15:00:00 66 [in_i] Common S pirit [facility] weight 2021-03-21 15:00:00 229 [lb_av] Common S pirit [facility] temperature 2021-03-21 15:00:00 97.8 [degF] Common S pirit [facility] bmi 2021-03-21 15:00:00 36.96 kg/m2 Common S pirit - [facility] oximetry 2021-03-21 15:00:00 100 % Common S pirit [facility] respiratory rate 2021-03-21 15:00:00 18 /min Comm on [facility] blood pressure 2021-03-21 15:00:00 120 mm[Hg] Common [facility] - systolic [facility] blood pressure 2021-03-21 15:00:00 68 mm[Hg] Common [facility] - diastolic [facility] Procedures Procedure Date / Time Performed Performing Clinician Sourc e [id number] 2019-12-20 00:00:00 ARSALAN [facility] [id number] 2019-12-20 00:00:00 ARSALAN [facility] [id number] 2019-12-20 00:00:00 ARSALAN [facility] [id number] 2019-12-20 00:00:00 [facility] Encounters Start End Encounter Admission Attending Care Care Encounter Source Date/Time Date/Time Type Type Clinicians Facility Department ID 2022-03-18 Outpatient Laurel, STLMLC STLMLC [id number] Common 09:33:00 Kell [id number] [facility] 2021-09-04 Outpatient Laurel, STLMLC STLMLC [id number] Common 12:10:56 Kell [id number] [facility] 2021-09-04 Outpatient [place], STLMLC STLMLC [id number] Common 11:06:46 Kell [id number] [facility] 2021-09-04 Outpatient Laurel, STLMLC STLMLC [id number] Common 11:06:09 Kell [id number] [facility] 2021-09-04 Outpatient Millender, STLMLC STLMLC [id number] Common 11:00:11 Sandra [id number] [facility] 2021-09-04 Outpatient Millender, STLMLC STLMLC [id number] Common 10:59:46 Sandra [id number] [facility] 2019-12-20 Inpatient [facility] DAYS [id number] [facility] 11:30:00 , Art [facility] 2022-03-20 2022-03-20 [facility] [id number] Univers 13:15:00 14:26:54 Visit Jackelyn C SPA DIRECTOR/FINANCE 350.1.13.10 ity of REGIONAL [id number] Miguel Angel as MATERNAL [phone] Med ical & CHILD [address] [place] [address] 2022-03-20 2022-03-20 Outpatient R CA, [facility] [id number] Univers 13:15:00 14:26:54 JACKELYN ity o f [facility] 2022-03-20 2022-03-20 Outpatient R AKINBRITTANI, [facility] [id number] Univers 13:15:00 13:15:00 JACKELYN ity o f [facility] 2022-03-20 2022-03-[address] [facility] [id number] Co mmon 00:00:00 00:00:00 VISIT EST Spir it PT LEVEL 3 - [facility] 2022-02-19 2022-02-19 Refruperto [facility] [id number] Univers 00:00:00 00:00:00 Jackelyn Real SPA DIRECTOR/FINANCE [id number] ity of REGIONAL [id number] Miguel Angel as MATERNAL [phone] [facility] & CH[facility] [address] [place] [address] 2021-10-27 2021-10-27 Laya [facility] [id number] Univers 00:00:00 00:00:00 Jeremy Turner SPA DIRECTOR/FINANCE [id number] it y of REGIONAL [id number] Miguel Angel as MATERNAL [phone] [facility] CH[facility] [address] [place] [address] 2021-10-11 2021-10-11 Office Ca KSRAFAT [id number] Univers 09:15:00 09:19:15 Visit Jackelyn C SPA DIRECTOR/FINANCE 350.1.13.10 ity of REGIONAL [id number] Miguel Angel as MATERNAL [phone] [facility] ical & CHILD [address] [place] [address] 2021-10-11 2021-10-11 Outpatient R CA, [facility] [id number] Univers 09:15:00 09:19:15 JACKELYN munoz o radha [facility] 2021-10-11 2021-10-11 Outpatient R CA, [facility] [id number] Univers 09:15:00 09:15:00 JACKELYN veroy o f [facility] 2021-10-11 2021-10-11 Orders Doctor JOCY [id number] Univers 00:00:00 00:00:00 Only Unassigned, LASHELL [id number] ity of [place] [facility] 4.2.7.2.686 Miguel Angel as [phone] [address] 2021-09-20 2021-09-20 [facility] [id number] Common 00:00:00 00:00:00 EST AGE Spirit 18-39 - [facility] 2021-08-12 2021-08-12 [facility] [id number] Univers 00:00:00 00:00:00 Secure Msg Jeremy Turner SPA DIRECTOR/FINANCE 350.1.13.10 ity of [facility] 4.2.7.2.686 Miguel Angel as MATERNAL [phone] [facility] & CHILD [address] [place] [address] 2021-07-15 2021-07-15 [facility] [id number] Univers 09:45:00 10:04:21 JEREMY munoz of [facility] 2021-07-15 2021-07-15 [facility] [id number] Univers 09:37:10 10:04:21 Visit Jeremy Turner SPA DIRECTOR/FINANCE 350.1.13.10 it y of [facility] [id number] Miguel Angel as MATERNAL [phone] [facility] & CHILD [address] [place] [address] 2021-07-15 2021-07-15 Telephone Sonia [facility] [id number] Univers 00:00:00 00:00:00 Dorian Hunt SPA DIRECTOR/FINANCE 350.1.13.10 ity of REGIONAL [id number] Miguel Angel as MATERNAL [id number] [facility] & CHILD [address] [place] [address] 2021-07-13 2021-07-13 aLya [facility] [id number] Univers 00:00:00 00:00:00 Rospolonda R SPA DIRECTOR/FINANCE 350.1.13.10 ity of REGIONAL [id number] Miguel Angel as MATERNAL [id number] [facility] & CHILD [address] [place] [address] 2021-07-08 2021-07-08 [facility] [id number] Univers 00:00:00 00:00:00 Sandovala R SPA DIRECTOR/FINANCE 350.1.13.10 ity of REGIONAL [id number] Miguel Angel as MATERNAL [id number] [facility] & CHILD [address] [place] [address] 2021-07-08 2021-07-08 [facility] [id number] Univers 00:00:00 00:00:00 Jeremy Turner SPA DIRECTOR/FINANCE 350.1.13.10 it y of REGIONAL [id number] Miguel Angel as MATERNAL [id number] [facility] & CHILD [address] [place] [address] 2021-06-20 2021-06-20 [facility] [id number] Univers 13:15:00 13:15:00 JEREMY munoz of [facility] 2021-04-18 2021-04-18 Laya [facility] [id number] Univers 00:00:00 00:00:00 Sandovala R SPA DIRECTOR/FINANCE 350.1.13.10 ity of REGIONAL [id number] Miguel Angel as MATERNAL [id number] [facility] CHILD [address] [place] [address] 2021-04-17 2021-04-17 Laya [facility] 1.2.840.114 [id number] Univers 00:00:00 00:00:00 Sandovala R SPA DIRECTOR/FINANCE 350.1.13.10 ity of REGIONAL [id number] Miguel Angel as MATERNAL [id number] [facility] & CHILD [address] [place] [address] 2021-04-16 2021-04-16 Refruperto Scott [facility] [id number] Univers 00:00:00 00:00:00 Sandovalcarlo Hunt SPA DIRECTOR/FINANCE 350.1.13.10 ity of [facility] 4.2.7.2.686 Miguel Angel as MATERNAL [phone] [facility] & CHILD [address] [place] [address] 2021-04-14 2021-04-14 Refruperto [facility] [id number] Univers 00:00:00 00:00:00 [facility] Hunt SPA DIRECTOR/FINANCE 350.1.13.10 ity of [facility] 4.2.7.2.686 Miguel Angel as MATERNAL [phone] [facility] & CHILD [address] [place] [address] 2021-03-21 2021-03-21 [facility] [id number] Co mmon 00:00:00 00:00:00 VISIT EST Spir it PT LEVEL 3 - [facility] 2021-03-20 2021-03-20 Office [facility] [id number] Univers 09:52:11 11:24:15 Visit Dorian Hunt SPA DIRECTOR/FINANCE 350.1.13.10 ity of [facility] [id number] Miguel Angel as MATERNAL [id number] [facility] CHILD [address] [place] [address] 2021-03-20 2021-03-20 Outpatient R [facility] [id number] Univers 09:30:00 09:30:00 ity of [facility] 2021-03-20 2021-03-20 Orders Doctor JOCY 1.2.840.114 [id number] Univers 00:00:00 00:00:00 Only Unassigned, LASHELL 350.1.13.10 ity of [place] [facility] 4.2.7.2.686 Miguel Angel as [phone] [address] 2021-03-04 2021-03-04 Office Christina [facility] [id number] Univers 09:37:31 11:01:30 Visit Jeremy Turner SPA DIRECTOR/FINANCE 350.1.13.10 it y of REGIONAL 4.2.7.2.686 Miguel Angel as MATERNAL [phone] [facility] ical & CHILD [address] [facility] 2021-03-04 2021-03-04 Outpatient Marilee VASQUEZ [facility] [id number] Univers 09:30:00 09:30:00 JEREMY munoz [facility] 2021-01-14 2021-01-14 Outpatient [facility] DAYS [id number] [facility] 01:37:00 01:37:00 , Art Loco [facility] 2020-10-30 2020-10-30 Patient Alex KS[facility] [id number] Univers 00:00:00 00:00:00 Outreach Oscar PRIMARY 350.1.13.10 i ty of [facility] 4.2.7.2.686 [place] [phone] Ca dical [address] [place] [address] 2020-10-30 2020-10-30 Patient Alex KS[facility] 1.2.840.114 [id number] 00:00:00 00:00:00 Outreach Oscar PRIMARY 350.1.13.10 Nando CARE 4.2.7.2.686 PAVILLION [id number] 388 2020-09-07 2020-09-07 Refill Doctor [facility] 1.2.840.114 [id number] Univers 00:00:00 00:00:00 Unassigned, SPA DIRECTOR/FINANCE 350.1.13.10 ity of [place] REGIONAL 4.2.7.2.686 Miguel Angel as MATERNAL [phone] [facility] ical & CHILD [address] [place] [address] 2020-09-07 2020-09-07 Refill Doctor [facility] 1.2.840.114 [id number] 00:00:00 00:00:00 Unassigned, SPA DIRECTOR/FINANCE 350.1.13.10 [place] REGIONAL 4.2.7.2.686 MATERNAL [phone] & CHILD [address] [place] [address] 2020-07-25 2020-07-25 Outpatient Marilee SCOTT [facility] [id number] Univers 10:15:00 10:15:00 ROSHUNDA ity o [facility] 2020-07-25 2020-07-25 Outpatient STLMLC STLMLC [id number] Common 00:00:00 00:00:00 [facility] 2020-07-25 2020-07-25 Outpatient STLMLC STLMLC [id number] Common 00:00:00 00:00:00 [facility] 2020-07-17 2020-07-17 Outpatient STLMLC STLMLC [id number] Common 00:00:00 00:00:00 [facility] 2020-07-11 2020-07-11 [facility] [id number] Univers 14:45:00 14:45:00 AMBERNDA verojaneth o [facility] 2020-07-02 2020-07-02 [facility]phone [facility] [id number] [facility] 00:00:00 00:00:00 Dorian R SPA DIRECTOR/FINANCE 350.1.13.10 ity [facility] [id number] Miguel Angel as MATERNAL [phone] Med ical & CHILD 107 [facility] 2020-07-02 2020-07-02 [facility]phone [facility] [id number] 00:00:00 00:00:00 Dorian Hunt SPA DIRECTOR/FINANCE 350.1.13.10 REGIONAL 4.2.7.2.686 MATERNAL [id number] & CHILD 107 [facility] 2020-06-28 2020-06-28 [facility] [id number] Univers 09:30:00 09:30:00 AMBERNDA tammy o f [facility] 2020-04-17 2020-04-17 [facility] [id number] Common 08:40:00 08:40:00 t [facility] [address] [facility] 2020-04-12 2020-04-12 Office [facility] 1.2.840.114 [id number] Univers 10:12:18 10:46:25 Visit Dorian Hunt SPA DIRECTOR/FINANCE 350.1.13.10 ity [facility] 4.2.7.2.686 Miguel Angel as MATERNAL [phone] Med ical & CHILD [address] [facility] 2020-04-12 2020-04-12 [facility] 1.2.840.114 [id number] 10:12:18 10:46:25 Visit Dorian Hunt SPA DIRECTOR/FINANCE 350.1.13.10 [facility] [id number] MATERNAL [id number] & CHILD 107 [facility] 2020-04-12 2020-04-12 Outpatient Marilee SCOTT [facility] [id number] Univers 10:30:00 10:30:00 DORIAN phamy o f [facility] 2020-04-12 2020-04-12 Orders Doctor JOCY 1.2.840.114 [id number] Univers 00:00:00 00:00:00 Only Unassigned, LASHELL 350.1.13.10 ity of [place] [facility] 4.2.7.2.686 Miguel Angel as [id number] [address] 2020-02-20 2020-02-20 [facility] [id number] Common 14:54:00 14:54:[address] [facility] it Road [facility] 2020-02-16 2020-02-16 [facility] [id number] Common 14:20:00 14:20:00 [facility] [address] [facility] 2020-02-14 2020-02-14 [facility] [id number] Common 13:49:00 13:49:00 [facility] [address] [facility] 2020-01-13 2020-01-13 [facility] [id number] Common 10:00:00 10:00:00 [facility] [address] it [address] [facility] 2019-12-08 2019-12-08 Outpatient Marilee SCOTT [facility] [id number] Univers 08:30:00 08:30:00 SANDOVALA ity o f [facility] 2019-12-07 2019-12-07 [facility] [id number] Univers 00:00:00 00:00:00 Dorian Hunt SPA DIRECTOR/FINANCE 350.1.13.10 ity of REGIONAL [id number] Miguel Angel as MATERNAL [phone] Med ical & CHILD 107 [facility] 2019-11-30 2019-11-30 [facility] [id number] Common 15:55:00 15:55:[address] [facility] 2019-11-26 2019-11-26 [facility] [id number] Common 13:26:00 13:26:[address] [facility] 2019-11-25 2019-11-25 [facility] [id number] Common 13:46:00 13:46:[address] [facility] 2019-10-14 2019-10-14 [facility] [id number] Common 08:00:00 08:00:[address] [facility] 2019-09-19 2019-09-19 [facility] [id number] Common 13:00:00 13:00:[address] [facility] 2019-08-22 2019-08-22 [facility] [id number] Common 14:00:00 14:00:[address] [facility] 2019-07-11 2019-07-11 [facility] [id number] Common 14:40:00 14:40:[address] [facility] 2019-06-13 2019-06-13 [id number] Common 08:00:00 08:00:[address] [facility] 2019-05-30 2019-05-30 [id number] Common 11:00:00 11:00:[address] [facility] Results Test Description Test Time Test Comments Results Result Comments Source SURGICAL SPECIMENS 2021-01-15 17:27:00 Test Item Value Reference Range Interpretation Comme nts SURGICAL RUN SPECIMENS DATE: 01/15/21 [facility] - LAB PAGE 1 RUN TIME: 172 Specimen Inquiry RUN USER: (test code INTERFACE = SURG) TOY ENT: CYNDIE TORRES LOC: JOSE U #: [id number] AGE/SX: 35/F ROOM: RE01/14/21[facility] DR: Art Allen MD : [birth year] BED: DIS: STATUS: JUNITO COOK TLOC: SPEC #: [id number] RECD: 01/14/21 STATUS: MARCIA DE JESUS #: [id number] PARI: 01/14/[address]: Art Allen MD E NTERED: 01/14/21 SP TYPE: SURG OTHR DR: Kell Hope CRANE LADLE PERSON ORDERED: PATHGM3, PATH SPEC, H E STAIN HISTOLOGY: TISSUE ID BLK PCS GERALDO LEV / PROCEDURE DISPOSITION ____ ___ ___ ___ ___ GALLBLADDER A 2 1 TISSUES: Martha FOWLERBLADD ER - Gallbladder CLINICAL HISTORY Chronic Cholecystits FINAL DIAGNOSIS GALLBLADDER, CINDY CYSTECTOMY: -CHRONIC CALCULOUS CHOLECYSTITIS POLYPOID CHOLESTEROLOSIS CPT 32847 GR OSS DESCRIPTION Received in formalin labeled [...] 0.6 cm. No mass lesion is seen. 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 PG/se - Signed SIGNATURE ON FILE JenniferRinku Krystina 01/15/21 172 7 END OF REPORT - XR FLUOROSCOPY 0-60 [id number] 12:13:00 [facility] : 1985 Sex: FPatient Name: CYNDIE TORRES Unit No: [id number] EXAMS: CPT CODE: [id number] XR FLUOROSCOPY 0-60MIN 81034 Examination: Operative fluoroscopy Location code: S17 Comparison: [...] Printed Date/Time: 01/14/2021 (1216) Name: CYNDIE TORRES [facility] Phys: Art Foss [address] : 1985 Age: 35 Sex: [place] [id number] Loc: P.SRG Exam Date: 01/14/2021 Status: REG [facility] PH: FAX: PAGE 1 Signed ReportCOVID Asymptomatic IH [id number] 11:14:00 Test Item Value Reference Interpretation Comments [...] i ts performancechar acteristics were determined by [facility]. Thi s test has notbeen FDA [...] Unknown? UnknownAge at collection: Y COMPREHENSIVE METABOLIC [id number] 11:09:00 Test Item Value Reference Range Interpretation [...] Range Feb code = ALKP) 2020 PROTHROMBIN [id number] 11:04:00 Test Item Value Reference Range Interpretation [...] 2.5-3.5recurren t systemic emboli sm. THROMBOPLASTIN TIME [id number] 11:04:00 Test Item Value Reference Range Interpretation Comments THROMBOPLASTIN TIME 35.1 SECONDS 23.8-34.8 H INTERPRE TATIVE PARTIAL (test code = DATA:Th erapeutic PTT) range: Unfractionated heparin:55 - 80 seconds Argatroban:1.5 to 3 times the basel ine PTT UR HCG [id number] 10:54:00 Test Item Value Reference Range Interpretation Comments UR HCG QUAL (test code = HCGQLU) NEGATIVE NEGATIVE CBC W/AUTO [id number] 10:48:00 Test Item Value Reference Range Interpretation [...] BA#) 0.03 x10 3/uL 0.0-0.20 N SURGICAL [id number] 13:53:00 RUN DATE: 12/22/19 [facility] - LAB PAGE 1 RUN TIME: 1353 Specimen Inquiry RUN USER: INTERFACE ------- -----PATIENT: CYNDIE TORRES [facility] POD B U #: [id number] AGE/SX: 34/F ROOM: [facility] RE12/20/19REG DR: Art Allen MD : [birth year] BED: 1 DIS: 12/21/19 STATUS: DIS IN TLOC: - SPEC #: [id number] RECD: 12/20/19 STATUS: SOUT REQ #: [id number] PARI: 12/20/19-[address] [facility] [address]: Art Allen MD ENTERED: 12/20/19-1310 SP [...] No lesions or masses are identified grossly. 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 [facility]/th MICROSCOPIC DESCRIPTION Microscopic performed. Signed SIGNATURE ON FILE Idalmis Quiros MD 12/22/19 1353 END OF REPORT BASIC METABOLIC [id number] 06:47:00 Test Item Value Reference Range Interpretation [...] code 9.0 mg/dL 8.8-10.2 N = CA) [id number] 06:47:00 Test Item Value Reference Range Interpretation Comments PHOSPHOROUS (test code = PHOS) 3.4 mg/dL 2.7-4.5 N [id number] 06:47:00 Test Item Value Reference Range Interpretation Comments MAGNESIUM (test code = MAG) 2.2 mg/dL 1.4-2.6 N CBC W/AUTO [id number] 06:19:00 Test Item Value Reference Range Interpretation [...] 0.02 x10 3/uL 0.0-0.20 N UR HCG [id number] 10:27:00 Test Item Value Reference Range Interpretation Comments UR HCG QUAL (test code = HCGQLU) NEGATIVE NEGATIVE PROTHROMBIN [id number] 12:54:00 Test Item Value Reference Range Interpretation [...] 2.5-3.5recurren t systemic emboli sm. THROMBOPLASTIN TIME [id number] 12:54:00 Test Item Value Reference Range Interpretation Comments THROMBOPLASTIN TIME 29.9 SECONDS 26.0-35.9 N INTERPRE TATIVE PARTIAL (test code = DATA:Th erapeutic PTT) range: Unfractionated heparin:47 - 71 seconds Argatroban:1.5 to 3 times the basel ine PTT Coronavirus 2019 nCoV [id number] 12:27:00 Test Item Value Reference Range Interpretation Comments Coronavirus 2019 nCoV Bedside (test Negative NEGATIVE code = [id number]) CBC W/AUTO [id number] 11:51:00 Test Item Value Reference Range Interpretation [...] 0.02 x10 3/uL 0.0-0.20 N COMPREHENSIVE METABOLIC [id number] 11:45:00 Test Item Value Reference Range Interpretation [...] Notes Date/Time Note Provider Source 2021-01-14 09:34:00-00:00 [id number] [facility] [address] [place] [address] PATIENT NAME: CYNDIE TORRES ADMIT DATE: 02/27 ACCOUNT NO: [id number] ROOM NO: AGE: 35 REPORT TYPE: OPERATIVE REPORT SEX: F ADMITTING PHYSICIAN: ATTENDING PHYSICIAN:Art Allen MD OPERATION DATE: 01/14/2021 PREOPERATIVE DIAGNOSES: Chronic cholecystitis wi th cholelithiasis. POSTOPERATIVE DIAGNOSES: Chronic cholecystitis w ith cholelithiasis. PROCEDURE PERFORMED: Laparoscopic cholecystectom y with intraoperative cholangiogram. SURGEON: Art Allen MD FLARE WORKER: Rosemary Agarwal, licensed hand frame surgical elastic knitter. ANESTHESIA: ESTIMATED BLOOD LOSS: Minimal. INDICATION FOR [...] PATIENT NAME: CYNDIE TORRES ACCOUNT #: [id number] fluoroscopy by injecting half strength contrast into [...] gallbladder off of the liver with the Ryan gaSure device. We placed the gallbladder into [...] By: Art Allen MD WT: OP:P.RAMIREZ/ARSALAN/JACOB Conf#: [id number]/DID#: [id number] Authenticated by Art Allen MD On 11:44:16 AM at 1144 PATIENT NAME: CYNDIE TORRES ACCOUNT #: [id number] 2021-01-10 10:52:00-00:00 [id number] [address] PATIENT NAME: CYNDIE TORRES ADMIT DATE: ACCOUNT NO: [id number] ROOM NO: AGE: 35 REPORT TYPE: eELECTROCARDIOGRAM SEX: F ADMITTING PHYSICIAN: ATTENDING PHYSICIAN: Art Allen MD Order: [id number] Test Reason : SDS Test Date/Time Stamp: [...] ECGs available Confirmed by CRISTY WHELAN MD ([id number]) on 2020 1:11:47 PM Referred By: Art Allen Confirmed by:ALEX WHELAN MD at 1312 PATIENT NAME: CYNDIE TORRES ACCOUNT #: [id number] 2019-12-22 11:20:00-00:00 [id number] [address] PATIENT NAME: CYNDIE TORRES ADMIT DATE: 12/08 09/29 ACCOUNT NO: [id number] ROOM NO: [facility] AGE: 34 REPORT TYPE: OPERATIVE REPORT SEX: [...] in the abdominal wall. Dictated By: Art lAlen MD WT: OP:P.RAMIREZ/ARSALAN/NTS Conf#: [id number]/DID#: [id number] Authenticated by Art Allen MD On 12:40:52 PM at 1241 PATIENT NAME: CYNDIE TORRES ACCOUNT #: [id number] 2019-12-22 11:19:00-00:00 [id number] [address] PATIENT NAME: CYNDIE TORRES ADMIT DATE: 12/08 09/29 ACCOUNT NO: [id number] ROOM NO: P.0582 AGE: 34 REPORT TYPE: [...] omentopexy. 4. Esophagogastroduodenoscopy. SUREGEON: Art Allen MD. FLARE WORKER: Rosemary Agarwal, licensed hand frame surgical elastic knitter. ANESTHESIA: General endotracheal with local. ESTIMATED BLOOD [...] PATIENT NAME: CYNDIE TORRES ACCOUNT #: [id number] dissect the greater omentum off of the [...] terior to the esophagus. We inserted a 40-Indian bougie into the mouth, passed it down [...] 2-[address] a ydwuwp-wd-svjnb suture, bringing the right and left crura [...] By: Art Allen MD WT: CON:PPATEL/ARSALAN/JACOB Conf#: [id number]/DID#: [id number] Authenticated by Art Allen MD On 12:41:00 PM at 1241 PATIENT NAME: CYNDIE TORRES ACCOUNT #: [id number] 2019-12-21 08:56:00-00:00 [id number] [facility] [address] [place] [address] PATIENT NAME: CYNDIE TORRES ADMIT DATE: 12/08 09/29 ACCOUNT NO: [id number] ROOM NO: P.0582 AGE: 34 REPORT TYPE: [...] By: Art Allen MD WT: DS:CHRISTINA/ARSALAN/JACOB Conf#: [id number]/DID#: [id number] Authenticated by Art Allen MD On 12:40:51 PM at 1241 PATIENT NAME: CYNDIE TORRES ACCOUNT #: [id number]
--- NOTE | 2023-03-11 09:43 | ER ---
Nurse's Notes [facility] Name: Cyndie Soliz Age: 37 yrs Sex: Female : 1985 Arrival Date: 03/11/2023 Time: 09:22 Bed Waiting Private MD: Kell Hope Diagnosis: Acute tonsillitis, unspecified;Herpangina Presentation: 03/11 09:27 Chief complaint: Patient states: sore throat that started 03/09/23. Reports fever and me1 chills. Coronavirus screen: Vaccine status: Patient reports being unvaccinated. Ebola Screen: No symptoms or risks identified at this time. Initial Sepsis Screen: Does the patient meet any 2 criteria? No. Patient's initial sepsis screen is negative. Does the patient have a suspected source of infection? Yes: Other: blisters in throat and mouth. Risk Assessment: Do you want to hurt yourself or someone else? Patient reports no desire to harm self or others. Onset of symptoms was March 09, 2023. 09:27 Method Of Arrival: Ambulatory wy1 09:27 Acuity: SHANIKA 5 me1 Triage Assessment: 09:40 General: Appears uncomfortable, obese, well groomed, Behavior is calm, cooperative, me1 appropriate for age. Pain: Complains of pain in thoat Pain does not radiate. Pain currently is 5 out of 10 on a pain scale. Quality of pain is described as burning. 09:40 Neuro: Level of Consciousness is awake, alert, obeys commands, Oriented to person, me1 place, time, situation. Cardiovascular: Capillary refill < 3 seconds Patient's skin is warm and dry. Respiratory: Respiratory effort is even, unlabored, Respiratory pattern is regular, symmetrical. 09:40 General: Reports chills for fever for feeling ill for fatigue for sore throat and mouth me1 that started 03/09/23. 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 - Social history:: Smoking status: Patient denies any tobacco usage or history of. - Family history:: not pertinent. - Hospitalizations: : No recent hospitalization is reported. Screenin: [facility] ED Fall Risk Assessment (Adult) Score/Fall Risk Level 0 - 2 = Low Risk me1 Maintained a safe environment, Provided non-skid footwear, Hourly rounding (assess needs \T\ fall precautionary measures) done. Abuse screen: Denies threats or abuse. Nutritional screening: No deficits noted. Tuberculosis screening: No symptoms or risk factors identified. Assessment: :44 Reassessment: See triage assessment. . me1 09:49 Respiratory: Airway Breath sounds are clear bilaterally. EENT: Throat red with me1 blisters. . Vital Signs: 09:27 BP 134 / 83; Pulse 79; Resp 17; Temp 98.8(O); Pulse Ox 100% on R/A; Weight 113.4 kg; me1 Height 5 ft. 7 in. ; 09:27 Body Mass Index 39.16 (113.40 kg, 170.18 cm) me1 ED Course: 09:25 Patient arrived in ED. mr 09:25 Kell Hope is Private Physician. mr 09:26 Bhargav Couch MD is Attending Physician. rn 09:40 Triage completed. me1 :44 Patient has correct armband on for positive identification. Provided Education on: on me1 POC, verbalized understanding. . :44 No provider procedures requiring assistance completed. me1 09:44 Patient did not have IV access during this emergency room visit. me1 Administered Medications: No medications were administered Medication: :44 VIS not applicable for this client. me1 Outcome: :42 Discharge ordered by . rn 09:44 Discharged to home ambulatory. me1 09:44 Condition: stable 09:44 Discharge instructions given to patient, Instructed on discharge instructions, follow up and referral plans. medication usage, Demonstrated understanding of instructions, follow-up care, medications. 09:50 Patient left the ED. me1 Signatures: Rafaela Rm mr Bhargav Couch MD MD rn Eddleman, Michelle, RN RN me1 Corrections: (The following items were deleted from the chart) :42 09:40 PMHx: PCOS; me1 me1
--- NOTE | 2023-03-11 09:43 | EDPHYS ---
Physician Documentation [facility] Name: Cyndie Soliz Age: 37 yrs Sex: Female : 1985 Arrival Date: 03/11/2023 Time: 09:22 Bed Waiting Private MD: Kell Hope ED Physician Bhargav Couch HPI: 03/11 09:38 This 37 yrs old Female presents to ER via Unassigned with complaints of Sore Throat. rn 09:38 The patient presents with sore throat. The patient describes throat pain as raw. Onset: rn The symptoms/episode began/occurred 2 day(s) ago. Severity of symptoms: At their worst the symptoms were moderate, in the emergency department the symptoms are unchanged. Modifying factors: The symptoms are alleviated by nothing, the symptoms are aggravated by swallowing, Patient's oral intake status: good. Associated signs and symptoms: Pertinent negatives chest pain, fever, shortness of breath. The patient has experienced a previous episode. Just got back from vacation, noticed sore throat, got worse, also noticed blisters on tongue. No sob. PO intake good with water and cold foods.. 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 - Social history:: Smoking status: Patient denies any tobacco usage or history of. - Family history:: not pertinent. - Hospitalizations: : No recent hospitalization is reported. ROS: 09:38 Constitutional: Negative for fever, chills, and weight loss, ENT: + sore throat learning support specialist: Negative for chest pain, palpitations, and edema, Respiratory: Negative for shortness of breath, cough, wheezing, and pleuritic chest pain. Exam: 09:38 Constitutional: This is a well developed, well nourished patient who is awake, alert, rn and in no acute distress. ENT: + tonsillar hypertrophy with some exudate, uvula midline, + multiple blisters on red base of tongue and posterior pharynx. Vital Signs: 09:27 BP 134 / 83; Pulse 79; Resp 17; Temp 98.8(O); Pulse Ox 100% on R/A; Weight 113.4 kg; me1 Height 5 ft. 7 in. ; 09:27 Body Mass Index 39.16 (113.40 kg, 170.18 cm) me1 MDM: 09:26 Patient medically screened. rn 09:38 Differential diagnosis: apthous stomatitis, apthous ulcer, cocksackie virus, rn laryngitis, pharyngitis, tonsillitis, viral syndrome herpangina. Data reviewed: vital signs, nurses notes, and as a result, I will discharge patient. Counseling: I had a detailed discussion with the patient and/or guardian regarding: the historical points, exam findings, and any diagnostic results supporting the discharge/admit diagnosis. Administered Medications: No medications were administered Disposition Summary: 03/11/23 09:42 Discharge Ordered Location: Home rn Problem: new rn Symptoms: have improved rn Condition: Stable rn Diagnosis - Acute tonsillitis, unspecified rn - Herpangina rn Followup: rn - With: Private Physician - When: As needed - Reason: Recheck today's complaints, Re-evaluation by your physician Discharge Instructions: - Discharge Summary Sheet rn - Cold Sore rn - Tonsillitis rn - Carlie, phlebotomist prn Forms: - Medication Reconciliation Form rn - Thank You Letter rn - Antibiotic burn center nurse - Prescription Opioid Use rn - Patient Portal Instructions rn Prescriptions: - valacyclovir 1 gram Oral tablet - take 2 tablet by ORAL route every 12 hours for 1 day; 4 tablet; Refills: 0, rn Product Selection Permitted - Augmentin 875-125 mg Oral Tablet - take 1 tablet by ORAL route every 12 hours for 10 days; 20 tablet; Refills: 0, rn Product Selection Permitted Signatures: Bhargav Couch MD MD rn Eddleman, Michelle, RN RN me1 Corrections: (The following items were deleted from the chart) 09:39 09:38 Constitutional: Negative for fever, chills, and weight loss, ENT: + sore throat rnrn 09:42 09:40 PMHx: PCOS; me1 me1
[2023-03-11 10:05] VITALS: BP 134/83; TEMP 98.8; O2SAT 100
== END 2023-03-11 09:50 | disposition home or self-care (01) ==
LOC: ER 09:22
DX: J03.90 Acute tonsillitis, unspecified (principal); B08.5 Enteroviral vesicular pharyngitis; Z98.82 Breast implant status

== ENCOUNTER 2024-11-18 16:28 | Inpatient (IN) | payer MEDICAID, OTHER ==
--- OUTSIDE RECORDS SUMMARY | 2024-11-18 16:33 | XMS REPORT | Continuity of Care Document ---
Author Name Unknown Address [address] [place] [address] [facility] Address [address] [place] [address] Care Team Providers Care Perinatal Director Name Role Phone Dorian Fletcher Primary Care Physician [phone] Kell Hope Attending Clinician Unavailable Sandra Vaughn Attending Clinician Unavailable Art Allen Attending Clinician Unavail able Elana Douglass Attending Clinician + ELANA PENALOZA Attending Clinician Unavail able Elana Douglass Attending Clinician + Doctor Unassigned, [place] Attending Clinician Samantha Hood Attending Clinician [phone] SAMANTHA VASQUEZ Attending Clinician UnavailDorian Fernandez Attending Clinician [phone] Oscar Johnson DO Attending Clinician DORIAN SCOTT Attending Clinician Unavail brant Hope Kell Shira BANQUET MANAGER Admitting Clinician Unavail able Payers Payer Name Policy Type Policy Number Effective Date Expirati on Date Source [facility] 53 [id number] 2019 00:00:00 [facility] Problems Condition Name Condition Details Condition Category Status Onset Date Resolution Date Last Treatment Date Treating Clinician Comments Source History of depression History of depression Disease Active 05-07 00:00: 00 [facility] Well woman exam Well woman exam Disease Active 03-20 00:00: 00 [facility] [id number] Other fatigue Problem Active [facility] Hyperglyce meng Hyperglyce meng Problem [facility] [id number] Seasonal allergies Problem Active [facility] [id number] BMI 40.0-44.9, adult Problem Active [facility] [id number] Amenorrhea Problem Active [facility] [id number] History of bariatric surgery Problem Active [facility] [id number] Acute cystitis with hematuria Problem Active [facility] [id number] Morbid obesity Problem Active [facility] [id number] Vitamin D deficiency Problem Active [facility] Menorrhagi a Menorrhagi a Problem Active [facility] [id number] Izabel albicans infection Problem Active [facility] [id number] BMI 39.0-39.9, adult Problem Active [facility] [id number] URI with cough and congestion Problem [facility] Well woman exam Well woman exam Disease Resolve d 2016-08 00:00: 00 2021-03-04 00:00:00 2021-03-04 09:42:05 [facility] Need for varicella vaccine Need for varicella vaccine Disease Resolve d 2016-08 00:00: 00 2021-03-04 00:00:00 2021-03-04 09:42:04 [facility] Acne, unspecifie d acne type Acne, unspecifie d acne type Disease Resolve d 2016-08 00:00: 00 2018-05-20 00:00:00 2018-05-20 12:53:09 [facility] History of gestationa l diabetes mellitus (GDM) History of gestationa l diabetes mellitus (GDM) Disease Resolve d 2016-08 00:00: 00 2018-05-20 00:00:00 2018-05-20 12:53:02 [facility] Routine follow-up Routine follow-up Disease Resolve d 04-29 00:00: 00 2017-05-20 00:00:00 2017-05-20 08:34:20 [facility] Anemia, Anemia, Disease Resolve d 04-29 00:00: 00 2017-05-20 00:00:00 2017-05-20 08:34:22 [facility] GDM (gestation al diabetes mellitus) GDM (gestation al diabetes mellitus) Disease Resolve d 04-29 00:00: 00 2017-05-20 00:00:00 2017-05-20 08:34:24 [facility] Maternal varicella, non-immune Maternal varicella, non-immune Disease Resolve d 3-30 00:00: 00 2017-05-20 00:00:00 2017-05-20 08:34:18 [facility] 37 weeks gestation of 37 weeks gestation of Disease Resolve d 8 00:00: 00 2017-04-29 00:00:00 2017-04-29 10:31:59 [facility] Polyhydram nios, antepartum complicati on Polyhydram nios, antepartum complicati on Disease Resolve d 03-20 00:00: 00 2017-04-29 00:00:00 2017-04-29 10:31:55 [facility] Macrosomia Macrosomia Disease Resolve d 2017-0 8-11 00:00: 00 2017-04-29 00:00:00 2017-04-29 10:31:56 [facility] Polyhydram nios, antepartum complicati on Polyhydram nios, antepartum complicati on Disease Resolve d 8-11 00:00: 00 2017-04-29 00:00:00 2017-04-29 10:31:55 [facility] Supervisio n of high risk , antepartum , second trimester Supervisio n of high risk , antepartum , second trimester Disease Resolve d 12-04 00:00: 00 2017-04-29 00:00:00 2017-04-29 10:31:48 [facility] Multiparit y Multiparit y Disease Resolve d 12-04 00:00: 00 2017-04-29 00:00:00 2017-04-29 10:31:49 [facility] Nausea and vomiting during prior to 22 weeks gestation Nausea and vomiting during prior to 22 weeks gestation Disease Resolve d 12-04 00:00: 00 2017-04-29 00:00:00 2017-04-29 10:31:50 [facility] Acute midline low back pain, with sciatica presence unspecifie d Acute midline low back pain, with sciatica presence unspecifie d Disease Resolve d 12-04 00:00: 00 2017-04-29 00:00:00 2017-04-29 10:31:53 [facility] Nausea and vomiting during prior to 22 weeks gestation Nausea and vomiting during prior to 22 weeks gestation Disease Resolve d 12-04 00:00: 00 2017-04-29 00:00:00 2017-04-29 10:31:50 [facility] Pelvic pain in Pelvic pain in Disease Resolve d 3-29 00:00: 00 2017-04-29 00:00:00 2017-04-29 10:31:39 [facility] History of pre-eclamp que in prior , currently , unspecifie d trimester History of pre-eclamp que in prior , currently , unspecifie d trimester Disease Resolve d 2-08 00:00: 00 2017-04-29 00:00:00 2017-04-29 10:31:43 [facility] GDM, class A2 GDM, class A2 Disease Resolve d 01-27 00:00: 00 2017-04-17 00:00:00 2017-04-17 09:39:44 [facility] uterine contractio ns uterine contractio ns Disease Resolve d 01-06 00:00: 00 2017-04-06 00:00:00 2017-04-06 16:18:31 [facility] Abnormal maternal glucose tolerance, antepartum Abnormal maternal glucose tolerance, antepartum Disease Resolve d 01-21 00:00: 00 2017-02-03 00:00:00 2017-02-03 11:07:53 [facility] with uncertain dates, antepartum with uncertain dates, antepartum Disease Resolve d 10-08 00:00: 00 2017-01-06 00:00:00 2017-01-06 16:00:32 [facility] Irregular menstrual cycle Irregular menstrual cycle Disease Resolve d 2014-08 00:00: 00 2017-01-06 00:00:00 2017-01-06 16:00:22 [facility] High risk , antepartum High risk , antepartum Disease Resolve d 09-17 00:00: 00 2016-12-04 00:00:00 2016-12-04 10:42:04 [facility] Contracept delisa management Contracept delisa management Disease Resolve d 2014-08 00:00: 00 2016-09-17 00:00:00 2016-09-17 11:48:41 [facility] BV (bacterial vaginosis) BV (bacterial vaginosis) Disease Resolve d 2014-08 00:00: 00 2016-09-17 00:00:00 2016-09-17 11:48:37 [facility] Pain pelvic Pain pelvic Disease Resolve d 2014-08 00:00: 00 2016-09-17 00:00:00 2016-09-17 11:48:39 [facility] Allergies, Adverse Reactions, Alerts Allergy Name Allergy Type Status Severity Reaction(s) Onset Date Inactive Date Treating Clinician Comments Source No Known Allergie s DA Active U 12-15 00:00: 00 [facility] No Known Allergie s DA Active U 12-15 00:00: 00 [facility] NO KNOWN ALLERGIE S Drug Class Active [facility] Social History Social Habit Start Date Stop Date Quantity Comments Source History of Tobacco Use [facility] Sex Assigned At [facility] History SDOH Alcohol Frequency [facility] History SDOH Alcohol Std Drinks [facility] History SDOH Alcohol Binge [facility] Exposure to SARS-CoV-2 (event) 2022-03-10 00:00:00 2022-03-20 13:42:00 Not sure [facility] Alcoholic beverage intake 2022-03-20 00:00:00 2022-03-20 00:00:00 .14 /d [facility] History of Social function 2021-03-20 00:00:00 2021-03-20 00:00:00 [facility] Alcohol Comment 2021-03-04 00:00:00 2021-03-04 00:00:00 social [facility] Alcohol intake 2018-05-20 00:00:00 2018-05-20 00:00:00 .14 /d [facility] Tobacco use and exposure 2015-06-26 00:00:00 2015-06-26 00:00:00 Smokeless tobacco non-user [facility] Smoking Status Start Date Stop Date Source Never Smoker [facility] Medications Ordered Medication Name Filled Medication Name Start Date Stop Date Current Medication? Ordering Clinician Indication Dosage Frequency Signature (SIG) Comments Components Source NuvaRing 0.12-0.015 mg/24 hr vaginal insert 04-08 00:00: 00 Yes [id number] INSERT ONE (1) RING VAGINALLY AND LEAVE IN PLACE FOR 3 CONSECUTIV E WEEKS, THEN REMOVE FOR 1 WEEK. [facility] NuvaRing 0.12-0.015 mg/24 hr vaginal insert 05-07 00:00: 00 04-08 00:00 :00 No [id number] 1{each} Insert 1 Each into vagina once every month. Insert vaginally and leave in place for 3 consecutiv e weeks, then remove for 1 week. [facility] Albuterol Sulfate (2.5 MG/3ML) 0.083% Albuterol Sulfate (2.5 MG/3ML) 0.083% 4-14 00:00: 00 No 3{ml_as _needed } QID Albuterol Sulfate (2.5 MG/3ML) 0.083% NuvaRing 0.12-0.015 mg/24 hr vaginal insert 8-11 00:00: 00 Yes [id number] 1{each} Insert 1 Each into vagina once every month. Insert vaginally and leave in place for 3 consecutiv e weeks, then remove for 1 week. [facility] NUVARING 0.12-0.015 mg/24 hr vaginal insert 7- 00:00: 00 Yes [id number] INSERT ONE RING INTO VAGINA ONCE EVERY MONTH. AND LEAVE IN PLACE FOR 3 CONSECUTIV E WEEKS, THEN REMOVE FOR 1 WEEK. [facility] buPROPion 100 mg tablet 02-14 00:00: 00 Yes 100mg Take 100 mg by mouth 2 (two) times daily. [facility] CONSTULOSE 10 gram/15 mL solution 01-11 00:00: 00 Yes TAKE 15 ML(S) BY MOUTH TWICE A DAY NEEDED FOR CONSTIPATI ON. [facility] ondansetron 4 mg disintegrat ing tablet 01-11 00:00: 00 Yes DISSOLVE ONE (1) TABLE ON TONGUE EVERY FOUR TO SIX HOURS NEEDED. [facility] dicyclomine 20 mg tablet 12-08 00:00: 00 Yes TAKE ONE (1) TABLET(S) BY MOUTH EVERY SIX HOURS NEEDED. [facility] norgestimat e-ethinyl estradioL (ORTHO TRI-CYCLEN, 28,) 0.18/0.215/ 0.25 mg-35 mcg (28) tablet 2019-08 00:00: 03-20 00:00 :00 No [id number] 1{tbl} Take 1 tablet by mouth daily. [facility] norgestimat e-ethinyl estradiol 0.18/0.215/ 0.25 mg-25 mcg tablet 2018-08-12 00:00: 00 03-04 00:00 :00 No 1{tbl} Take 1 tablet by mouth daily. [facility] buPROPion HCl 100 MG buPROPion HCl 100 MG No 1{table t} BID buPROPion HCl 100 MG Vitamin D (Ergocalcif ginny) 1.25 MG (56258 UT) Vitamin D (Ergocalcif ginny) 1.25 MG (48635 UT) No 1{capsu le} Vitamin D (Ergocalci ferol) 1.25 MG (58824 UT) Iron 325 (65 Fe) MG Iron 325 (65 Fe) MG No 1{table t} Iron 325 (65 Fe) MG Immunizations Ordered Immunization Name Filled Immunization Name Date Status Comments Source TD, NOS 2024-04-08 00:00:00 Completed [facility] TDAP 2024-04-08 00:00:00 Completed [facility] TD, NOS 2023-05-07 15:15:00 Completed [facility] TDAP 2023-05-07 15:15:00 Completed [facility] TD, NOS 2023-05-07 00:00:00 Completed [facility] TDAP 2023-05-07 00:00:00 Completed [facility] TD, NOS 2023-05-06 00:00:00 Completed [facility] TDAP 2023-05-06 00:00:00 Completed [facility] TD, NOS 2021-08-21 00:00:00 Completed [facility] TDAP 2021-08-21 00:00:00 Completed [facility] TD, NOS 2021-08-12 00:00:00 Completed [facility] TDAP 2021-08-12 00:00:00 Completed [facility] TD, NOS 2021-02-27 00:00:00 Completed [facility] TDAP 2021-02-27 00:00:00 Completed [facility] TD, NOS 2020-07-13 00:00:00 Completed [facility] TDAP 2020-07-13 00:00:00 Completed [facility] TD, NOS 2020-04-03 00:00:00 Completed [facility] TDAP 2020-04-03 00:00:00 Completed [facility] TD, NOS 2020-04-02 00:00:00 Completed [facility] TDAP 2020-04-02 00:00:00 Completed [facility] TDAP 2017-02-03 00:00:00 Completed [facility] Tdap - Tdap - 2017-01-14 11:14:00 Completed [facility] Tdap - Tdap - 2017-01-14 11:14:00 Completed [facility] Td 1999-08-10 00:00:00 Completed [facility] Tdap - Tdap - Unknown Completed [facility] Tdap - Tdap - Unknown Completed [facility] rit [facility] Tdap - Tdap - Unknown Completed [facility] rit [facility] Tdap - Tdap - Unknown Completed [facility] Tdap - Tdap - Unknown Completed [facility] Tdap - Tdap - Unknown Completed [facility] Tdap - Tdap - Unknown Completed [facility] Tdap - Tdap - Unknown Completed [facility] Tdap - Tdap - Unknown Completed [facility] rit [facility] Tdap - Tdap - Unknown Completed [facility] rit [facility] Tdap - Tdap - Unknown Completed [facility] rit [facility] Tdap - Tdap - Unknown Completed [facility] Tdap - Tdap - Unknown Completed [facility] Vital Signs Vital Name Observation Time Observation Value Comments S ource height 2023-11-30 16:00:00 66 [in_i] Commo n [facility] weight 2023-11-30 16:00:00 261 [lb_av] Comm on [facility] temperature 2023-11-30 16:00:00 97.8 [degF] Com mon [facility] bmi 2023-11-30 16:00:00 42.12 kg/m2 Comm on [facility] height 2023-08-19 16:20:00 66 [in_i] Commo n [facility] weight 2023-08-19 16:20:00 255 [lb_av] Comm on [facility] bmi 2023-08-19 16:20:00 41.15 kg/m2 Comm on [facility] height 2023-05-29 09:40:00 66 [in_i] Commo n [facility] weight 2023-05-29 09:40:00 261.4 [lb_av] Co mmon [facility] temperature 2023-05-29 09:40:00 97.2 [degF] Com mon [facility] bmi 2023-05-29 09:40:00 42.19 kg/m2 Comm on [facility] oximetry 2023-05-29 09:40:00 98 % Commo n [facility] respiratory rate 2023-05-29 09:40:00 16 /min [facility] blood pressure systolic 2023-05-29 09:40:00 133 mm[Hg] [facility] blood pressure diastolic 2023-05-29 09:40:00 84 mm[Hg] [facility] Systolic blood pressure 2023-05-07 20:46:00 126 mm[Hg] [place] [facility] Diastolic blood pressure 2023-05-07 20:46:00 76 mm[Hg] [facility] Heart rate 2023-05-07 20:46:00 79 /min [facility] temperature 2023-05-07 20:46:00 35.94 [facility] Respiratory rate 2023-05-07 20:46:00 18 /min [facility] Body height 2023-05-07 20:46:00 172.7 cm [facility] Body weight 2023-05-07 20:46:00 115.939 kg [facility] BMI 2023-05-07 20:46:00 38.86 kg/m2 [facility] height 2022-11-28 08:00:00 66 [in_i] Commo n [facility] weight 2022-11-28 08:00:00 254.4 [lb_av] Co mmon [facility] temperature 2022-11-28 08:00:00 98.0 [degF] Com [facility] bmi 2022-11-28 08:00:00 41.06 kg/m2 Comm on [facility] oximetry 2022-11-28 08:00:00 98 % Commo n [facility] respiratory rate 2022-11-28 08:00:00 16 /min Common [facility] blood pressure systolic 2022-11-28 08:00:00 134 mm[Hg] [facility] diastolic 2022-11-28 08:00:00 80 mm[Hg] Common [facility] height 2022-11-21 13:20:00 66 [in_i] Commo n [facility] weight 2022-11-21 13:20:00 250.2 [lb_av] Co mmon [facility] temperature 2022-11-21 13:20:00 97.4 [degF] Com mon [facility] bmi 2022-11-21 13:20:00 40.38 kg/m2 Comm on [facility] oximetry 2022-11-21 13:20:00 98 % Commo n [facility] respiratory rate 2022-11-21 13:20:00 16 /min Common [facility] blood pressure systolic 2022-11-21 13:20:00 136 mm[Hg] Common [facility] blood pressure diastolic 2022-11-21 13:20:00 80 mm[Hg] Common [facility] height 2022-11-04 10:20:00 66 [in_i] Commo n [facility] weight 2022-11-04 10:20:00 248 [lb_av] Comm on [facility] bmi 2022-11-04 10:20:00 40.02 kg/m2 Comm on [facility] Systolic blood pressure 2022-03-20 18:41:00 120 mm[Hg] [facility] Diastolic blood pressure 2022-03-20 18:41:00 76 mm[Hg] [facility] Heart rate 2022-03-20 18:41:00 62 /min [facility] Body temperature 2022-03-20 18:41:00 36.5 [facility] Respiratory rate 2022-03-20 18:41:00 18 /min [facility] Body height 2022-03-20 18:41:00 172.7 cm [facility] Body weight 2022-03-20 18:41:00 111.585 kg [facility] BMI 2022-03-20 18:41:00 37.40 kg/m2 [facility] height 2022-03-20 09:40:00 66 [in_i] Commo n [facility] weight 2022-03-20 09:40:00 245.6 [lb_av] Co mmon [facility] temperature 2022-03-20 09:40:00 97.1 [degF] Com mon [facility] bmi 2022-03-20 09:40:00 39.64 kg/m2 Comm on [facility] oximetry 2022-03-20 09:40:00 100 % Commo n [facility] respiratory rate 2022-03-20 09:40:00 16 /min Common [facility] blood pressure systolic 2022-03-20 09:40:00 124 mm[Hg] [facility] blood pressure diastolic 2022-03-20 09:40:00 71 mm[Hg] Common [facility] height 2021-09-20 08:40:00 66 [in_i] Commo n [facility] weight 2021-09-20 08:40:00 240 [lb_av] Comm on [facility] temperature 2021-09-20 08:40:00 97.9 [degF] Com [facility] bmi 2021-09-20 08:40:00 38.73 kg/m2 Comm on [facility] oximetry 2021-09-20 08:40:00 99 % Commo n [facility] respiratory rate 2021-09-20 08:40:00 18 /min [facility] blood pressure systolic 2021-09-20 08:40:00 136 mm[Hg] [facility] blood pressure diastolic 2021-09-20 08:40:00 65 mm[Hg] [facility] height 2021-03-21 15:00:00 66 [in_i] Commo n [facility] weight 2021-03-21 15:00:00 229 [lb_av] Comm on [facility] temperature 2021-03-21 15:00:00 97.8 [degF] Com [facility] bmi 2021-03-21 15:00:00 36.96 kg/m2 Comm on [facility] oximetry 2021-03-21 15:00:00 100 % Commo n [facility] respiratory rate 2021-03-21 15:00:00 18 /min [facility] blood pressure systolic 2021-03-21 15:00:00 120 mm[Hg] Common [facility] blood pressure diastolic 2021-03-21 15:00:00 68 mm[Hg] [facility] Procedures Procedure Date / Time Performed Performing Clinicia n Source POCT TEST 2023-05-07 20:50:00 Roberto Penaloza [facility] ASSIGNMENT OF BENEFITS 2023-05-07 20:01:37 Docto r Unassigned, [place] [facility] [id number] 2019-12-20 00:00:00 [facility] [id number] 2019-12-20 00:00:00 [facility] [id number] 2019-12-20 00:00:00 ARSALAN MONTELONGO [facility] [id number] 2019-12-20 00:00:00 [facility] Encounters Start Date/Time End Date/Time Encounter Type Admission Type Attending [facility] Care Facility Care Department Encounter ID Source 2022-03-18 09:33:00 Outpatient Kell Hope [facility] [id number] [facility] 2021-09-04 12:10:56 Outpatient Kell Hope [facility] [id number] [facility] 2021-09-04 11:06:46 Outpatient [facility] [id number] [facility] 2021-09-04 11:06:[address] [facility] [id number] [facility] 2021-09-04 11:00:11 Outpatient Sandra Vaughn [facility] [id number] [facility] 2021-09-04 10:59:46 Outpatient Sandra Vaughn [facility] [id number] [facility] 2019-12-20 11:30:00 Inpatient Art Allen [facility] [id number] [facility] 2024-11-14 00:00:00 2024-11-14 00:00:00 (TEL) [facility] [id number] [facility] 2024-11-10 00:00:00 2024-11-11 07:49:09 Refill Elana Penaloza [facility] RETAIL ACCOUNT EXECUTIVE [facility] MATERNAL & CHILD [facility] [id number] [facility] 2024-09-29 00:00:00 2024-09-29 07:42:24 Refill Akinsipe, Elana C [facility] RETAIL ACCOUNT EXECUTIVE [facility] [id number] [facility] 2024-04-08 00:00:00 2024-04-08 06:56:30 Refill Akinsipe, Elana C [facility] RETAIL ACCOUNT EXECUTIVE [facility] [id number] [facility] 2023-12-07 00:00:00 2023-12-07 00:00:00 (TEL) [facility] ST[facility] [id number] [facility] 2023-12-03 00:00:00 2023-12-03 00:00:00 (TEL) [facility]ML[facility] [id number] [facility] 2023-11-30 00:00:00 2023-11-30 00:00:00 OFFICE VISIT ESTAB PT LEVEL 4 [facility] ST[facility] [id number] [facility] 2023-08-19 00:00:00 2023-08-19 00:00:00 OFFICE VISIT ESTAB PT LEVEL 4 [facility] ST[facility] [id number] [facility] 2023-06-22 00:00:00 2023-06-22 00:00:00 (TEL) STLMLC ST[facility]MLC [id number] [facility] 2023-05-29 00:00:00 2023-05-29 00:00:00 OFFICE VISIT ESTAB PT LEVEL 3 [facility] ST[facility]C [id number] [facility] 2023-05-07 15:15:00 2023-05-07 16:16:36 Outpatient R ELANA PENALOZA [facility] [id number] [facility] 2023-05-07 15:15:00 2023-05-07 16:16:36 Office Visit Elana Penaloza [facility] RETAIL ACCOUNT EXECUTIVE [facility] & CHILD [facility] [id number] [facility] 2023-05-07 00:00:00 2023-05-07 00:00:00 Orders Only Doctor Unassigned, [place] [facility] [id number] [facility] 2023-05-06 00:00:00 2023-05-06 00:00:00 Refill Elana Penaloza [facility] RETAIL ACCOUNT EXECUTIVE [facility] & CHILD [facility] [id number] [id number] [facility] 2022-11-28 00:00:00 2022-11-28 00:00:00 OFFICE VISIT ESTAB PT LEVEL 3 STLMLC STLMLC [id number] [facility] 2022-11-21 00:00:00 2022-11-21 00:00:00 OFFICE VISIT ESTAB PT LEVEL 3 [facility]MLC STLMLC [id number] [facility] 2022-11-17 00:00:00 2022-11-17 00:00:00 (TEL) STLMLC STLMLC [id number] [facility] 2022-11-07 00:00:00 2022-11-07 00:00:00 (TEL) [facility]MLC STL[facility]C [id number] [facility] 2022-11-07 00:00:00 2022-11-07 00:00:00 (TEL) STLMLC STLMLC [id number] [facility] 2022-11-04 00:00:00 2022-11-04 00:00:00 OFFICE VISIT ESTAB PT LEVEL 3 [facility]MLC STLMLC [id number] [facility] 2022-11-04 00:00:00 2022-11-04 00:00:00 (TEL) STLMLC STLMLC [id number] [facility] 2022-03-20 13:15:00 2022-03-20 14:26:54 Office Visit Elana Penaloza [facility] RETAIL ACCOUNT EXECUTIVE [facility] & CHILD [facility] .840.114 350.1.13.10 4.2.7.2.686 [id number] 107 [id number] [facility] 2022-03-20 13:15:00 2022-03-20 14:26:54 Outpatient R ELANA PENALOZA [facility] [id number] [facility] 2022-03-20 13:15:00 2022-03-20 13:15:00 Outpatient R ELANA PENALOZA [facility] [id number] [facility] 2022-03-20 00:00:00 2022-03-20 00:00:00 OFFICE VISIT EST PT LEVEL 3 [facility] [id number] [facility] 2022-02-19 00:00:00 2022-02-19 00:00:00 Refill Elana Penaloza [facility] RETAIL ACCOUNT EXECUTIVE [facility] .840.114 350.1.13.10 4.2.7.2.686 [id number] 107 [id number] [facility] 2021-10-27 00:00:00 2021-10-27 00:00:00 Refill Samantha Vasquez [facility] RETAIL ACCOUNT EXECUTIVE [facility] 1..840.114 350.1.13.10 4.2.7.2.686 [id number] 107 [id number] [facility] 2021-10-11 09:15:00 2021-10-11 09:19:15 Outpatient R ARAVINDQIANELANA THORNE [facility] [id number] [facility] 2021-10-11 09:15:00 2021-10-11 09:19:15 Office Visit Elana Penaloza [facility] RETAIL ACCOUNT EXECUTIVE [facility] 1.84.114 350.1.13.10 4.2.7.2.686 [id number] 107 [id number] [facility] 2021-10-11 09:15:00 2021-10-11 09:15:00 Outpatient R ARAVINDELANA PETER [facility] [id number] [facility] 2021-10-11 00:00:00 2021-10-11 00:00:00 Orders Only Doctor Unassigned, [place] [facility] 1.84.114 350.1.13.10 4.2.7.2.686 [id number] [facility] 2021-09-20 00:00:00 2021-09-20 00:00:00 PREV VISIT EST AGE 18-39 STLMLC STLMLC [id number] [facility] 2021-08-21 00:00:00 2021-08-21 00:00:00 Patient Secure Msg Samantha Vasquez [facility] RETAIL ACCOUNT EXECUTIVE [facility] 1.840.114 350.1.13.10 4.2.7.2.686 [id number] [facility] 2021-08-12 00:00:00 2021-08-12 00:00:00 Patient Secure Msg Samantha Vasquez [facility] RETAIL ACCOUNT EXECUTIVE [facility] 1.84.114 350.1.13.10 4.2.7.2.686 [id number] 107 [id number] [facility] 2021-08-12 00:00:00 2021-08-12 00:00:00 Patient Secure Msg Samantha Vasquez [facility] RETAIL ACCOUNT EXECUTIVE [facility] MATERNAL & CHILD [facility] 1.2.840.114 350.1.13.10 4.2.7.2.686 [id number] 107 [id number] [facility] 2021-07-15 09:45:00 2021-07-15 10:04:21 Outpatient R SAMANTHA VASQUEZ [facility] [id number] [facility] 2021-07-15 09:37:10 2021-07-15 10:04:21 Office Visit Samantha Vasquez [facility] RETAIL ACCOUNT EXECUTIVE [facility] MATERNAL & [facility]ILD [facility] 1.2.840.114 350.1.13.10 4.2.7.2.686 [id number] 107 [id number] [facility] 2021-07-15 00:00:00 2021-07-15 00:00:00 Telephone Dorian Scott [facility] RETAIL ACCOUNT EXECUTIVE [facility] 1.2.840.114 350.1.13.10 4.2.7.2.686 [id number] 107 [id number] [facility] 2021-07-13 00:00:00 2021-07-13 00:00:00 Dorian Garza [facility] RETAIL ACCOUNT EXECUTIVE [facility] CHILD [facility] 1.2.840.114 350.1.13.10 4.2.7.2.686 [id number] 107 [id number] [facility] 2021-07-08 00:00:00 2021-07-08 00:00:00 Dorian Garza [facility] RETAIL ACCOUNT EXECUTIVE [facility] 1.2.840.114 350.1.13.10 4.2.7.2.686 [id number] 107 [id number] [facility] 2021-07-08 00:00:00 2021-07-08 00:00:00 Telephone Samantha Vasquez [facility] RETAIL ACCOUNT EXECUTIVE [facility] 1.2.840.114 350.1.13.10 4.2.7.2.686 [id number] 107 [id number] [facility] 2021-06-20 13:15:00 2021-06-20 13:15:00 Outpatient SAMANTHA WHITFIELD [facility] [id number] [facility] 2021-04-18 00:00:00 2021-04-18 00:00:00 Dorian Garza [facility] RETAIL ACCOUNT EXECUTIVE [facility] MATERNAL & CHILD [facility] 1.2.840.114 350.1.13.10 4.2.7.2.686 [id number] 107 [id number] [facility] 2021-04-17 00:00:00 2021-04-17 00:00:[address] [facility] RETAIL ACCOUNT EXECUTIVE [facility] 1.2.840.114 350.1.13.10 4.2.7.2.686 [id number] 107 [id number] [facility] 2021-04-16 00:00:00 2021-04-16 00:00:00 Dorian Garza [facility] RETAIL ACCOUNT EXECUTIVE [facility] CHILD [facility] 1.2.840.114 350.1.13.10 4.2.7.2.686 [id number] 107 [id number] [facility] 2021-04-14 00:00:00 2021-04-14 00:00:[address] [facility] RETAIL ACCOUNT EXECUTIVE [facility] 1.2.840.114 350.1.13.10 4.2.7.2.686 [id number] 107 [id number] [facility] 2021-03-21 00:00:00 2021-03-21 00:00:00 OFFICE VISIT EST PT LEVEL 3 STLMLC [facility] [id number] [facility] 2021-03-20 09:52:11 2021-03-20 11:24:15 Office Visit Dorian Scott [facility] RETAIL ACCOUNT EXECUTIVE [facility] 1..114 350.1.13.10 4.2.7.2.686 [id number] 107 [id number] [facility] 2021-03-20 09:30:00 2021-03-20 09:30:00 Outpatient R [facility] [id number] [facility] 2021-03-20 00:00:00 2021-03-20 00:00:00 Orders Only Doctor Unassigned, [place] [facility] 1.114 350.1.13.10 4.2.7.2.686 [id number] [facility] 2021-03-04 09:37:31 2021-03-04 11:01:30 Office Visit Samantha Vasquez [facility] RETAIL ACCOUNT EXECUTIVE [facility] 1..114 350.1.13.10 4.2.7.2.686 [id number] 107 [id number] [facility] 2021-03-04 09:30:00 2021-03-04 09:30:00 Outpatient R SAMANTHA VASQUEZ [facility] [id number] [facility] 2021-02-27 00:00:00 2021-02-27 00:00:00 Patient Secure Dorian Landeros R [facility] RETAIL ACCOUNT EXECUTIVE [facility] MATERNAL & CHILD [facility] ..114 350.1.13.10 4.2.7.2.686 [id number] 107 [id number] [facility] 2021-01-14 01:37:00 2021-01-14 01:37:00 Outpatient JOAQUIM Allen Art [facility] [id number] [facility] 2020-10-30 00:00:00 2020-10-30 00:00:00 Patient Outreach Oscar Johnson [facility] 1..114 350.1.13.10 4.2.7.2.686 [id number] [facility] 2020-10-30 00:00:00 2020-10-30 00:00:00 Patient Outreach Oscar Johnson [facility] 1.840.114 350.1.13.10 4.2.7.2.686 [id number] 2020-09-07 00:00:00 2020-09-07 00:00:00 Refill Doctor Unassigned, [place] [facility] RETAIL ACCOUNT EXECUTIVE [facility] 1.840.114 350.1.13.10 4.2.7.2.686 [id number] 107 [id number] [facility] 2020-09-07 00:00:00 2020-09-07 00:00:00 Refill Doctor Unassigned, [place] [facility] RETAIL ACCOUNT EXECUTIVE [facility] CHILD [facility] 1.840.114 350.1.13.10 4.2.7.2.686 [id number] 107 [id number] 2020-07-25 10:15:00 2020-07-25 10:15:00 Outpatient Marilee DORIAN SCOTT [facility] [id number] [facility] 2020-07-25 00:00:00 2020-07-25 00:00:00 Outpatient [facility]MLC [facility] [id number] [facility] 2020-07-25 00:00:00 2020-07-25 00:00:00 Outpatient [facility]MLC [facility] [id number] [facility] 2020-07-17 00:00:00 2020-07-17 00:00:00 Outpatient STLMLC [facility]C [id number] [facility] 2020-07-13 00:00:00 2020-07-13 00:00:00 Patient Secure Msg Doctor Unassigned, [place] [facility] 1..840.114 350.1.13.10 4.2.7.2.686 [id number] 107 [id number] [facility] 2020-07-11 14:45:00 2020-07-11 14:45:00 Outpatient DORIAN HUERTA [facility] [id number] [facility] 2020-07-02 00:00:00 2020-07-02 00:00:00 Telephone Dorian Scott [facility] RETAIL ACCOUNT EXECUTIVE [facility] MATERNAL & CHILD [facility] 1.2.840.114 350.1.13.10 4.2.7.2.686 [id number] 107 [id number] [facility] 2020-07-02 00:00:00 2020-07-02 00:00:00 Telephone Dorian Scott [facility] RETAIL ACCOUNT EXECUTIVE [facility] CHILD [facility] 1.2.840.114 350.1.13.10 4.2.7.2.686 [id number] 107 [id number] 2020-06-28 09:30:00 2020-06-28 09:30:00 Outpatient CHACE HUERTAKATHY [facility] [id number] [facility] 2020-04-17 08:40:00 2020-04-17 08:40:00 [facility] [id number] [facility] 2020-04-12 10:12:18 2020-04-12 10:46:25 Office Visit Sandoval Scottcarlo Hunt [facility] RETAIL ACCOUNT EXECUTIVE [facility] MATERNAL & CHILD [facility] 1.2.840.114 350.1.13.10 4.2.7.2.686 [id number] 107 [id number] [facility] 2020-04-12 10:12:18 2020-04-12 10:46:25 Office Visit Sandoval Scottcarlo Marilee [facility] RETAIL ACCOUNT EXECUTIVE [facility] MATERNAL & CHILD [facility] 1.2.840.114 350.1.13.10 4.2.7.2.686 [id number] 107 [id number] 2020-04-12 10:30:00 2020-04-12 10:30:00 Outpatient CHACE HUERTAKATHY [facility] [id number] [facility] 2020-04-12 00:00:00 2020-04-12 00:00:00 Orders Only Doctor Unassigned, [place] [facility] 1.2.840.114 350.1.13.10 4.2.7.2.686 [id number] [facility] 2020-04-03 00:00:00 2020-04-03 00:00:00 Patient Secure Msg Doctor Unassigned, [place] [facility] RETAIL ACCOUNT EXECUTIVE [facility] MATERNAL & CHILD [facility] 1.2.840.114 350.1.13.10 4.2.7.2.686 [id number] 107 [id number] [facility] 2020-04-02 00:00:00 2020-04-02 00:00:00 Patient Secure Msg Doctor Unassigned, [place] [facility] 1.2.840.114 350.1.13.10 4.2.7.2.686 [id number] [facility] 2020-02-20 14:54:00 2020-02-20 14:54:00 Outpatient [facility] [id number] [facility] 2020-02-16 14:20:00 2020-02-16 14:20:00 Outpatient [facility] [id number] [facility] 2020-02-14 13:49:00 2020-02-14 13:49:00 Outpatient [facility] [id number] [facility] 2020-01-13 10:00:00 2020-01-13 10:00:00 Outpatient [facility] [id number] [facility] 2019-12-08 08:30:00 2019-12-08 08:30:00 Outpatient DORIAN HUERTA [facility] [id number] [facility] 2019-12-07 00:00:00 2019-12-07 00:00:00 Dorian Carranza [facility] RETAIL ACCOUNT EXECUTIVE [facility] MATERNAL & [facility] 1.2.840.114 350.1.13.10 4.2.7.2.686 [id number] 107 [id number] [facility] 2019-11-30 15:55:00 2019-11-30 15:55:[address] [facility] [facility] [id number] [facility] 2019-11-26 13:26:00 2019-11-26 13:26:[address] [facility] [address] [facility] [id number] [facility] 2019-11-25 13:46:00 2019-11-25 13:46:00 [facility] [id number] [facility] 2019-10-14 08:00:00 2019-10-14 08:00:00 [facility] [id number] [facility] 2019-09-19 13:00:00 2019-09-19 13:00:00 [facility] [id number] [facility] 2019-08-22 14:00:00 2019-08-22 14:00:00 [facility] [id number] [facility] 2019-07-11 14:40:00 2019-07-11 14:40:00 [facility] [id number] [facility] 2019-06-13 08:00:00 2019-06-13 08:00:00 [facility] [address] [facility] [id number] [facility] 2019-05-30 11:00:00 2019-05-30 11:00:00 [facility] [id number] [facility] Results Test Description Test Time Test Comments Results Result Co mments Source POCT [id number] 20:50:00* Test Item Value Reference Range Interpretation Comme nts POCT PREG (test code = 1605) Negative On board controls acceptable with C Line (test code = 3574) Yes POCT PREG LOT # (test code = 3575) POCT PREG TEST DATE ( test code = 3576) [facility] BranchPOCT [id number] 20:50:00* Test Item Value Reference Range Interpretation Comme nts POCT PREG (test code = 1605) Negative On board controls acceptable with C Line (test code = 3574) Yes POCT PREG LOT # (test code = 3575) POCT PREG TEST DATE ( test code = 3576) [id number] 17:27:00* Test Item Value Reference Range Interpretation Comme nts SURGICAL SPECIMENS (test code = SURG) RUN DATE: 01/15/21 [facility] - LAB PAGE 1 RUN TIME: 1727 Specimen Inquiry RUN USER: INTERFACE PATIENT: CYNDIE TORRES LOC: JOSE U #: [id number] AGE/SX: 35/F ROOM: RE01/14/21REG DR: Art Allen MD : 87 BED: DIS: STATUS: [facility] TLOC: SPEC #: [id number] RECD: 01/14/21 STATUS: MARCIA DE JESUS #: [id number] PARI: 01/14/21 [facility] DR: Art Allen MD ENTERED: 01/14/21 SP TYPE: SURG OTHR DR: Kell Hope [facility] ORDERED: PATHGM3, PATH SPEC, H E STAIN HISTOLOGY: TISSUE ID BLK PCS GERALDO LEV / PROCEDURE DISPOSITION ____ ___ ___ ___ ___ GALLBLADDER A 2 1 TISSUES: A. GALLBLADDER - Gallbladder CLINICAL HISTORY Chronic Cholecystits FINAL DIAGNOSIS GALLBLADDER, CHOLECYSTECTOMY: -CHRONIC CALCULOUS CHOLECYSTITIS POLYPOID CHOLESTEROLOSIS CPT 36686 GROSS DESCRIPTION Received in formalin labeled "gallbladder" is a cholecystectomy specimen measuring 6 x 2 x 1.5 cm. The distal aspect of the gallbladder was previously cut as well and it measures 1.5 x 1 x 1. Multiple gallstones are noted within the specimen and in the container ranging in size from 0.2 to 0.6 cm. No mass lesion is seen. Senior Asic Engineer sections are submitted as follows: A1, cystic duct margin; A2, gallbladder wall. PG/se Signed SIGNATURE ON FILE Rinku Rodriguez 01/15/21 1727 END OF REPORT - XR FLUOROSCOPY 0-60 [id number] 12:13:00 [facility] : 1985 Sex: FPatient Name: CYNDIE TORRES Unit No: [id number] EXAMS: CPT CODE: [id number] XR FLUOROSCOPY 0-60 MIN 21599 Examination: Operative fluoroscopy Location code: S17 Comparison: None Discussion: Clinical history is remarkable for cholecystitis. 46.9 seconds fluoroscopic time is utilized. Single intraoperative image demonstrates retrograde injection of the cystic duct, contrast flows into the duodenum. No evidence of fixed filling defect. Impression: Please refer to the operative report. at 1213 Reported and signed by: CRISTY CONNELLY M.D. CC: Kell Hope; Art Allen MD Technologist: SARAI MAN RT(R) Fluoro Time: DAP (Gy m2): Air Kerma (mGy): Trscr Dt/Tm: 01/14/2021 (1213) by:[email or web address] Printed Date/Time: 01/14/2021 (1216) Name: CYNDIE TORRES [facility] Phys: Art Foss [id number] jK Delaney : 1985 Age: 35 Sex: [place] [address] Loc: P.SRG Exam Date: 01/14/2021 Status: REG SDC PH: FAX: PAGE 1 Signed ReportCOVID Asymptomatic IH [id number] 11:14:00* Test Item Value Reference Range Interpretation Comments COVID Asymptomatic IH NTX (test code = COVNONPUINTX) Negative Negative A negative resul t does not preclude the SARS-COV-2 viralinfection and should not be used as the sole basis forpatient management decisions. Negative results must becombined with clinical observations, patient history, andepidemiological information. Viral levels in clinicalsamples below the detection limit of the assay could lead tonegative results. This test was performed using the Medefy SmartTM COVID-19 PCRassay. This test was developed and its performancecharacteristics were determined by [facility]. This test has notbeen FDA cleared or approved. This test is authorized by theA under Emergency Use Authorization(EUA). The EUA willremain in effect unless it is terminated or revoked by FDA . Testing parameters have not been validated for screeningasymptomatic patients. This test was validated according to the FDA's guidancedocument "Policy for Diagnostics testing in LaboratoriesCertified to Perform High Complexity Testing under CLIA". First test? UnknownEmployed in Healthcare? UnknownSymptomatic as defined by CDC? UnknownHospitalized due to COVID? UnknownIn ICU due to COVID? UnknownResident in a congregate care setting? Unknown? UnknownAge at collection: Y COMPREHENSIVE METABOLIC [id number] 11:09:00* Test Item Value Reference Range Interpretation Comme nts SODIUM (test code = NA) 143 mmol/L 136-145 N Please note: New Reference Range Sep 2020 POTASSIUM (test code = K) 4.6 mmol/L 3.5-5.1 N CHLORIDE (test code = CL) 108 mmol/L 98-107 H Please note: New Reference Range Sep 2020 CARBON DIOXIDE (test code = CO2) 28 mmol/L 20-31 N Please note: N ew Reference Range Sep 2020 GLUCOSE (test code = GLU) 88 mg/dL 74-106 N Please note: New Reference Range Sep 2020 BLOOD UREA NITROGEN (test code = BUN) 17 mg/dL 9-23 N Please note: N ew Reference Range Sep 2020 GLOMERULAR FILTRATION RATE (test code = GFR) >=60 max estimate >60 The estimated glomerular filtration rate is computed usingpatient race, age (>18), sex, and serum creatinine. If anyof the needed data elements are missing the Laboratory cannot compute an estimation of the glomerular filtration rate. CREATININE (test code = CREAT) 0.90 mg/dL 0.55-1.02 N Please note: New Reference Range Sep 2020 TOTAL PROTEIN (test code = PROT) 7.1 g/dL 5.7-8.2 N Please note: New Reference Range Sep 2020 ALBUMIN (test code = ALB) 4.7 g/dL 3.2-4.8 N Please note: New Reference Range Sep 2020 CALCIUM (test code = CA) 9.9 mg/dL 8.7-10.4 N Please note: New Reference Range Sep 2020 BILIRUBIN TOTAL (test code = BILT) 0.5 mg/dL 0.3-1.2 N Please note: New Reference Range Sep 2020 SGOT/AST (test code = AST) 22 U/L <34 N Please note: New Reference Range Sep 2020 SGPT/ALT (test code = ALT) 19 U/L 10-49 N Please note: New Reference Range Sep 2020 ALKALINE PHOSPHATASE (test code = ALKP) 81 U/L 46-116 N Please note: New Reference Range Sep 2020 PROTHROMBIN [id number] 11:04:00* Test Item Value Reference Range Interpretation Comme nts PROTHROMBIN TIME PATIENT (test code = PTP) 11.9 SECONDS 10.3-12.9 N INTERNATIONAL NORMAL RATIO (test code = INR) 1.05 INR UNIT 0.9-1.11 N The INR is usefu l only for monitoring anticoagulant therapy.It may be unreliable in the initial phase of antigoagulationand in unstable patients. Indication for Anticoagulation Recommended INR 1. Prevention of venous thomboembolism 2.0-3.0in high-risk patients; treatment of venousthrombosis and pulmonary embolism aftera course of heparin; prevention of systemicembolism in a variety of conditions, including atrial fibrillation and prothetic tissue heart valves, 2. Prosthetic mechanical heart valves; 2.5-3.5recurrent systemic embolism. THROMBOPLASTIN TIME [id number] 11:04:00* Test Item Value Reference Range Interpretation Comme nts THROMBOPLASTIN TIME PARTIAL (test code = PTT) 35.1 SECONDS 23.8-34.8 H INTERPRETATIVE DATA:Therapeutic range: Unfractionated heparin:55 - 80 seconds Argatroban:1.5 to 3 times the baseline PTT UR HCG [id number] 10:54:00* Test Item Value Reference Range Interpretation Comme nts UR HCG QUAL (test code = HCGQLU) NEGATIVE NEGATIVE CBC W/AUTO [id number] 10:48:00* Test Item Value Reference Range Interpretation Comme nts WHITE BLOOD CELL (test code = WBC) 5.8 x10 3/uL 4.8-10.8 N RED BLOOD CELL (test code = RBC) 4.90 x10 6/uL 4.20-5.40 N HEMOGLOBIN (test code = HGB) 13.9 g/dL 12.0-16.0 N HEMATOCRIT (test code = HCT) 43.2 % 37.0-47.0 N MEAN CELL VOLUME (test code = MCV) 88.2 fL 81.0-99.0 N MEAN CELL HGB (test code = MCH) 28.4 pg 27-31 N MEAN CELL HGB CONCENTRATION (test code = MCHC) 32.2 G/DL 33-36.5 L RED CELL DISTRIBUTION WIDTH (test code = RDW) 12.8 % 12.9-16.9 L PLATELET COUNT (test code = PLT) 248 x10 3/uL 150-440 N MEAN PLATELET VOLUME (test c ode = MPV) 10.0 fL 8.9-12.4 N NEUTROPHIL % (test code = NT%) 57.5 [...] BA#) 0.03 x10 3/uL 0.0-0.20 N SURGICAL [id number] 13:53:00 RUN DATE: 12/22/19 [facility] - LAB PAGE 1 RUN TIME: 1353 Specimen Inquiry RUN USER: INTERFACE ------ ------[facility]: [facility]: [id number] AGE/SX: 34/F ROOM: [facility] RE12/20/19REG DR: Art Allen MD : 87 BED: 1 DIS: 12/21/19 STATUS: DIS IN TLOC: ------- ----- SPEC #: [id number] RECD: 12/20/19 STATUS: MARCIA DE JESUS #: [id number] PARI: 12/20/[address] [facility] [address]: Art Allen MD ENTERED: 12/20/19 SP [...] No lesions or masses are identified grossly. Senior Asic Engineer sections are submitted in a single cassette. RAB/th MICROSCOPIC DESCRIPTION Microscopic performed. Signed SIGNATURE ON FILE Idalmis Quiros MD 12/22/19 1353 END OF REPORT BASIC METABOLIC [id number] 06:47:00* Test Item Value Reference Range Interpretation Comme nts SODIUM (test code = NA) 141 MMOL/L 136-143 N POTASSIUM (test code = K) 5.0 MMOL/L 3.5-5.1 N CHLORIDE (test code = CL) 102 MMOL/L 98-107 N CARBON DIOXIDE (test code = CO2) 27 mmol/L 24-31 N GLUCOSE (test code = GLU) 130 mg/dL 70-104 H BLOOD UREA NITROGEN (test code = BUN) 4.7 MG/DL 7.0-21.0 L GLOMERULAR FILTRATION RATE (test code = GFR) >=60 max estimate >60 The estimated glomerular filtration rate is computed usingpatient race, age (>18), sex, and serum creatinine. If anyof the needed data elements are missing the Laboratory cannot compute an estimation of the glomerular filtration rate. CREATININE (test code = CREAT) 0.9 mg/dL 0.8-1.5 N CALCIUM (test code = CA) 9.0 mg/dL 8.8-10.2 N [id number] 06:47:00* Test Item Value Reference Range Interpretation Comme nts PHOSPHOROUS (test code = PHOS) 3.4 mg/dL 2.7-4.5 N [id number] 06:47:00* Test Item Value Reference Range Interpretation Comme nts MAGNESIUM (test code = MAG) 2.2 mg/dL 1.4-2.6 N CBC W/AUTO [id number] 06:19:00* Test Item Value Reference Range Interpretation Comme nts WHITE BLOOD CELL (test code = WBC) 11.7 x10 3/uL 4.8-10.8 H RED BLOOD CELL (test code = RBC) 4.86 x10 6/uL 4.20-5.40 N HEMOGLOBIN (test code = HGB) 13.9 g/dL 14.5-20 L HEMATOCRIT (test code = HCT) 43.9 % 37.0-47.0 N MEAN CELL VOLUME (test code = MCV) 90.3 fL 81.0-99.0 N MEAN CELL HGB (test code = MCH) 28.6 pg 27-31 N MEAN CELL HGB CONCENTRATION (test code = MCHC) 31.7 G/DL 33-36.5 L RED CELL DISTRIBUTION WIDTH (test code = RDW) 12.6 % 12.9-16.9 L PLATELET COUNT (test code = PLT) 307 150-440 N MEAN PLATELET VOLUME (test c ode = MPV) 9.7 fL 8.9-12.4 N NEUTROPHIL % (test code = NT%) 80.2 [...] 0.02 x10 3/uL 0.0-0.20 N UR HCG [id number] 10:27:00* Test Item Value Reference Range Interpretation Comme nts UR HCG QUAL (test code = HCGQLU) NEGATIVE NEGATIVE PROTHROMBIN [id number] 12:54:00* Test Item Value Reference Range Interpretation Comme nts PROTHROMBIN TIME PATIENT (test code = PTP) 12.4 SECONDS 10.3-12.9 N INTERNATIONAL NORMAL RATIO (test code = INR) 1.09 INR UNIT 0.9-1.11 N The INR is usefu l only for monitoring anticoagulant therapy.It may be unreliable in the initial phase of antigoagulationand in unstable patients. Indication for Anticoagulation Recommended INR 1. Prevention of venous thomboembolism 2.0-3.0in high-risk patients; treatment of venousthrombosis and pulmonary embolism aftera course of heparin; prevention of systemicembolism in a variety of conditions, including atrial fibrillation and prothetic tissue heart valves, 2. Prosthetic mechanical heart valves; 2.5-3.5recurrent systemic embolism. THROMBOPLASTIN TIME [id number] 12:54:00* Test Item Value Reference Range Interpretation Comme [facility] THROMBOPLASTIN TIME PARTIAL (test code = PTT) 29.9 SECONDS 26.0-35.9 N INTERPRETATIVE DATA:Therapeutic range: Unfractionated heparin:47 - 71 seconds Argatroban:1.5 to 3 times the baseline PTT Coronavirus 2019 nCoV [id number] 12:27:00* Test Item Value Reference Range Interpretation Comme nts Coronavirus 2019 nCoV Bedsid e (test code = [id number]) Negative NEGATIVE CBC W/AUTO [id number] 11:51:00* Test Item Value Reference Range Interpretation Comme [facility] WHITE BLOOD CELL (test code = WBC) 7.9 x10 3/uL 4.8-10.8 N RED BLOOD CELL (test code = RBC) 4.82 x10 6/uL 4.20-5.40 N HEMOGLOBIN (test code = HGB) 13.9 g/dL 14.5-20 L HEMATOCRIT (test code = HCT) 43.3 % 37.0-47.0 N MEAN CELL VOLUME (test code = MCV) 89.8 fL 81.0-99.0 N MEAN CELL HGB (test code = MCH) 28.8 pg 27-31 N MEAN CELL HGB CONCENTRATION (test code = MCHC) 32.1 G/DL 33-36.5 L RED CELL DISTRIBUTION WIDTH (test code = RDW) 12.8 % 12.9-16.9 L PLATELET COUNT (test code = PLT) 242 150-440 N MEAN PLATELET VOLUME (test c ode = MPV) 10.0 fL 8.9-12.4 N NEUTROPHIL % (test code = NT%) 65.8 [...] 0.02 x10 3/uL 0.0-0.20 N COMPREHENSIVE METABOLIC [id number] 11:45:00* Test Item Value Reference Range Interpretation Comme nts SODIUM (test code = NA) 140 MMOL/L 136-143 N POTASSIUM (test code = K) 4.5 MMOL/L 3.5-5.1 N CHLORIDE (test code = CL) 101 MMOL/L 98-107 N CARBON DIOXIDE (test code = CO2) 23 mmol/L 24-31 L GLUCOSE (test code = GLU) 94 mg/dL 70-104 N BLOOD UREA NITROGEN (test code = BUN) 9.1 MG/DL 7.0-21.0 N GLOMERULAR FILTRATION RATE (test code = GFR) >=60 max estimate >60 The estimated glomerular filtration rate is computed usingpatient race, age (>18), sex, and serum creatinine. If anyof the needed data elements are missing the Laboratory cannot compute an estimation of the glomerular filtration rate. CREATININE (test code = CREAT) 0.8 mg/dL 0.8-1.5 N TOTAL PROTEIN (test code = PROT) 7.5 g/dL 6.3-8.3 N ALBUMIN (test code = ALB) 4.5 G/DL 3.5-5.0 N CALCIUM (test code = CA) 9.8 mg/dL 8.8-10.2 N BILIRUBIN TOTAL (test code = BILT) 0.2 mg/dL 0.2-1.0 N SGOT/AST (test code = AST) 27 IU/L 10-34 N SGPT/ALT (test code = ALT) 41 U/L 10-36 H ALKALINE PHOSPHATASE (test code = ALKP) 75 U/L 32-104 N Notes Date/Time Note Provider Source 2021-01-14 09:34:00 [id number] [facility] [address] [place] [address] PATIENT NAME: CYNDIE TORRES ADMIT DATE: 01/14/21 ACCOUNT NO: [id number] ROOM NO: AGE: 35 REPORT TYPE: OPERATIVE REPORT SEX: F ADMITTING PHYSICIAN: ATTENDING PHYSICIAN:Art Allen MD OPERATION DATE: 01/14/2021 PREOPERATIVE DIAGNOSES: Chronic cholecystitis with cholelithiasis. POSTOPERATIVE DIAGNOSES: Chronic cholecystitis with cholelithiasis. PROCEDURE PERFORMED: Laparoscopic cholecystectomy with intraoperative cholangiogram. SURGEON: Art Allen MD MACHINE LEATHER TRIMMER: Rosemary Agarwal, licensed surgical endoscopist. ANESTHESIA: ESTIMATED BLOOD LOSS: Minimal. INDICATION FOR PROCEDURE: The patient is a 35-year-old woman with a history of intermittent right upper quadrant abdominal pain. The patient was also found to have multiple gallstones on preoperative ultrasound. Her overall clinical picture was consistent with chronic cholecystitis with cholelithiasis. PROCEDURE IN DETAIL: The patient was given preoperative IV antibiotics and subcutaneous Lovenox. She was brought in the operating room and placed on the operating table in the supine position. Sequential compression devices were applied to both legs and activated. She was placed under general endotracheal anesthesia and her abdomen was sterilely prepped and draped. We injected the skin and subcutaneous tissues over the left subcostal area at about the midclavicular line with Marcaine and we made a 5-mm skin incision with a scalpel. We passed a 5-mm optical trocar through the abdominal wall using a laparoscope to visualize each layer of the abdominal wall as was inserted. We insufflated the abdomen to 15 mmHg pressure with CO2. We then placed a 12-mm port at the umbilicus and two 5-mm ports in the right lateral subcostal area under direct laparoscopic vision using Marcaine for local anesthesia. We visualized the upper abdomen and the patient's gastric sleeve was completely unremarkable. We then retracted the gallbladder superiorly and laterally with graspers. We used a LigaSure device to dissect the cystic duct and cystic artery. We also used the LigaSure device to dissect the bottom one-third of the gallbladder off of the liver bed. At this point, we could see the anatomy of the cystic artery and cystic duct very nicely. We placed a clip on the cystic duct just below the infundibulum of the gallbladder. We made a small opening in the cystic duct just below the clip with laparoscopic scissors. We inserted a cholangiogram catheter into the cystic duct and we shot a cholangiogram under PATIENT NAME: CYNDIE TORRES fluoroscopy by injecting half strength contrast into the biliary tree. The anatomy of the biliary tree was unremarkable. There were no stones seen in the common bile duct and there was rapid flow of contrast from the common bile duct into the duodenum. We removed the cholangiogram catheter. We placed 2 clips on the cystic duct just below the opening in the duct and we divided the duct with laparoscopic scissors. We also placed 2 clips on the cystic artery and we divided the cystic artery just above the clips, leaving 2 clips on the cystic artery stump and 2 clips on the cystic duct stump. We dissected the gallbladder off of the liver with the LigaSure device. We placed the gallbladder into a bag and removed the gallbladder from the abdomen through the 12 mm umbilical port site. We irrigated and suctioned the right upper quadrant and checked for bleeding, it was found to be completely hemostatic. We closed the umbilical port site fascial opening with 2 sutures of #1 Vicryl using a suture passer under direct laparoscopic vision. We deflated the abdomen and removed the ports. We closed the skin incisions with 4-0 Monocryl suture in a subcuticular fashion. We applied Dermabond to the wounds. The patient was awakened from general anesthesia, extubated, and taken to PACU in stable condition. Dictated By: Art Allen MD WT: OP:PPATEL/ARSALAN/JACOB Conf#: [id number]/DID#: [id number] Authenticated by Art Allen MD On 01/28/2021 11:44:16 AM at 1144 PATIENT NAME: CYNDIE TORRES [facility] 2021-01-10 10:52:00 [id number] [address] PATIENT NAME: CYNDIE TORRES ADMIT DATE: ACCOUNT NO: [id number] ROOM NO: AGE: 35 REPORT TYPE: eELECTROCARDIOGRAM SEX: F ADMITTING PHYSICIAN: ATTENDING PHYSICIAN: Art Allen MD Order: [id number] Test Reason : SDS Test Date/Time Stamp: ThuJan 10 2021 10:52:27 Blood Pressure : / mmHG Vent. Rate : 053 BPM Atrial Rate : 053 BPM P-R Int : 168 ms QRS Dur : 084 ms QT Int : 434 ms P-R-T Axes : 013 041 020 degrees QTc Int : 407 ms Sinus bradycardia with marked sinus arrhythmia Abnormal ECG No previous ECGs available Confirmed by CRISTY CROWELL MD ([id number]) on 01/12/2021 1:11:47 PM Referred By: Art Allen Confirmed by:CRISTY CROWELL MD at 1312 PATIENT NAME: CYNDIE TORRES [facility] 2019-12-22 11:20:00 [id number] [address] PATIENT NAME: CYNDIE TORRES ADMIT DATE: 12/20/19 ACCOUNT NO: [id number] ROOM NO: [facility] AGE: 34 REPORT TYPE: OPERATIVE REPORT SEX: F ADMITTING PHYSICIAN:Art Allen MD ATTENDING PHYSICIAN:Art Allen MD OPERATION DATE: 12/20/2019 DATE OF PROCEDURE: 12/20/2019. PREOPERATIVE DIAGNOSIS: Pain, status post laparoscopic gastric sleeve. POSTOPERATIVE DIAGNOSIS: Pain, status post laparoscopic gastric sleeve. PROCEDURE PERFORMED: Placement of infusion catheter into the abdominal wall x 2. SURGEON: Art Allen M.D. ANESTHESIA: General endotracheal. ESTIMATED BLOOD LOSS: None. INDICATIONS FOR PROCEDURE: The patient is a 34 who underwent a laparoscopic sleeve gastrectomy that requires multiple port placements in the mid abdomen. It causes significant amount of postoperative pain. The patient is also morbidly obese, causing an increased risk for deep vein thrombosis and pneumonia related to postoperative pain. PROCEDURE IN DETAIL: After the laparoscopic sleeve gastrectomy was completed, I passed two dilators and sheaths through a left subcostal skin incision into the abdominal wall and passed the sheaths down to the umbilical area. I removed the dilators, leaving the sheaths in place. I passed the catheters into the sheaths and removed the sheaths, leaving the catheters in place in the abdominal wall. Dictated By: Art Allen MD WT: OP:P.RAMIREZ/ARSALAN/JACOB Conf#: [id number]/DID#: [id number] Authenticated by Art Allen MD On 01/17/2020 12:40:52 PM at 1241 PATIENT NAME: CYNDIE TORRES [facility] 2019-12-22 11:19:00 [id number] [address] PATIENT NAME: CYNDEI TORRES ADMIT DATE: 12/20/19 ACCOUNT NO: [id number] ROOM NO: P.[id number] AGE: 34 REPORT TYPE: [...] omentopexy. 4. Esophagogastroduodenoscopy. SUREGEON: Art Allen MD. MACHINE LEATHER TRIMMER: Rosemary Agarwal, licensed surgical endoscopist. ANESTHESIA: General endotracheal with local. ESTIMATED BLOOD LOSS: Minimal. INDICATION FOR PROCEDURE: The patient is a 34-year-old woman with a history of gastroesophageal reflux disease and a hiatal hernia seen on preoperative endoscopy, both related to her morbid obesity. The patient has a body mass index of 55. PROCEDURE IN DETAIL: The patient was given preoperative IV antibiotics and subcutaneous heparin and was brought into the operative room and placed on the operating table in the supine position. Sequential compression devices were applied to both legs and activated. The patient was placed under general endotracheal anesthesia and the abdomen was sterilely prepped and draped. We injected the skin and subcutaneous tissues over the left lateral subcostal area [...] vision using Marcaine for local anesthesia. We used the LigaSure device to PATIENT NAME: CYNDIE TORRES dissect the greater omentum off of the greater curvature of the stomach from 3 cm proximal to the pylorus up to the angle of His. We dissected the gastric fat pad off of the proximal stomach as well. We used a LigaSure device to divide the gastrohepatic ligament and to dissect the distal esophagus and proximal stomach off the right and left crura posterior to the esophagus. We inserted a 40-Afghan bougie into the mouth, passed it down the esophagus and into the stomach, repositioned the bougie along the lesser curvature with the tip of the bougie until the pylorus. We placed a laparoscopic Covidien stapler with a 60 mm black load and Roseline-Strip staple line reinforcement on the stomach 3 cm proximal to the pylorus and direct the stapler towards the angle of His, bringing the stapler adjacent to the bougie. After firing the first stapler load, we continued firing the laparoscopic Covidien stapler with 60 mm black loads and Roseline-Strip staple line reinforcement along the bougie until the stomach was completely divided up the angle of His, leaving a 1 cm segment of stomach between the esophagus and the staple line. We used the Endostitch device and a 2-[address] a lctasi-ec-fqmuu suture, bringing the right and left crura together posterior to the esophagus to repair the hiatal hernia. We closed the hiatus tight enough that the esophagus was touching the muscle of the [...] and properly constructed. We removed the upper endoscope. We irrigated and suctioned the abdomen and checked for bleeding. It was found to be hemostatic. We sutured the omentum to the lateral aspect of the distal sleeve with a 2-0 Vicryl suture to keep sleeve straight. We removed the stomach specimen from the abdomen through the 15 mm port site. We closed the fascial opening of the 15 mm port site with a suture passer and #1 Vicryl suture under direct laparoscopic vision. We deflate the abdomen and removed the ports. We closed the skin incisions with 4-0 Monocryl suture in a subcuticular fashion. We applied Dermabond to the wounds. The patient was awakened from general anesthesia, extubated and taken to the PACU in stable condition. Dictated By: Art Allen MD WT: CON:CHRISTINA/ARSALAN/JACOB Conf#: [id number]/DID#: [id number] Authenticated by Art Allen MD On 01/17/2020 12:41:00 PM at 1241 PATIENT NAME: CYNDIE TORRES [facility] 2019-12-21 08:56:00 [id number] [place] [id number] PATIENT NAME: CYNDIE TORRES ADMIT DATE: 12/20/19 ACCOUNT NO: [id number] ROOM NO: [id number] AGE: 34 REPORT TYPE: DISCHARGE SUMMARY SEX: [...] underwent a laparoscopic sleeve gastrectomy and hiatal hernia repair. The patient had an uneventful postoperative course and was discharged home on postoperative day #1 on a bariatric liquid diet that she will maintain for 2 weeks. She will follow up with us in the office in 2 weeks. She will take Tylenol with Codeine elixir for pain, Zofran for nausea and Lovenox for DVT prophylaxis. Please see her home medication reconciliation form for other medications. Dictated By: Art Allen MD WT: DS:CHRISTINA/ARSALAN/JACOB Conf#: [id number]/DID#: [id number] Authenticated by Art Allen MD On 01/17/2020 12:40:51 PM at 1241 PATIENT NAME: CYNDIE TORRES [facility]
--- NOTE | 2024-11-18 17:37 | RAD REPORT ---
EXAMINATION: XR RIGHT FOREARM CLINICAL INDICATION: . r/o osteo TECHNIQUE:Two view radiograph of the right forearm were obtained. COMPARISON: No prior exam. FINDINGS: Prominent soft tissue swelling about the forearm. No fracture, dislocation or evidence of osteomyelitis. No soft tissue gas is seen.
[2024-11-18] MEDS ORDERED: CEFEPIME 2 GM VIAL ONE ×2 (19:33→20:10)
[2024-11-18] MEDS ORDERED: NA CHLORIDE 0.9% 500 ML ONE (19:33)
[2024-11-18] MEDS ORDERED: VANCOMYCIN 1 GM/VIAL ONE (19:33)
[2024-11-18] MEDS ORDERED: NA CHLORIDE 0.9% 0 ML ONE (19:33)
[2024-11-18 20:06] LABS: Absolute Basophils 0.1 K/uL (0-0.5); Absolute Eosinophils 0.2 K/uL (0-0.5); Absolute Lymphocytes (CBC) 2.5 K/uL (0.7-4.9); Absolute Monocytes 0.8 K/uL (0.1-1.3); Basophils % 0.7 % (0-1.3); Eosinophils % 1.4 % (0-4.4); Hematocrit 39.6 % (36.0-45.0); Hemoglobin 13.5 g/dL (12.0-15.0); Lymphocytes % 20.1 % (15.3-44.8); MCH 29.5 pg (27.0-35.0); MCHC 34.2 g/dL (32.0-36.0); MCV 86.2 fL (80-100); MPV 7.6 fL (7.6-11.3); Monocytes % 6.4 % (3.3-12.3); Neutrophils % 71.4 % (41.7-73.7); Nucleated Red Blood Cells % 0.2 % (0-0); Platelets 290 thou/uL (152-406); RBC Red Blood Cell Count 4.59 M/uL (3.86-4.86); Red Cell Distribution Width 12.7 % (12.1-15.2)
[2024-11-18] MEDS ORDERED: NA CHLORIDE 0.9% 100 ML ONE (20:10)
[2024-11-18 20:15] LABS: PT Prothrombin Time 12.1 SECONDS (10-13.0); PTT, Activated Partial Thromb 31.8 SECONDS (27.2-37.4); Protime INR 1.06
[2024-11-18 20:24] LABS: Albumin 3.4 g/dL (3.4-5.0); Albumin/Globulin Ratio 0.9 (1.1-1.8); Anion Gap 6.8 mEq/L (5.0-15.0); Bilirubin Total 0.5 mg/dL (0.2-1.0); Globulin 3.9 g/dL (2.3-3.5); Potassium 3.8 mEq/L (3.5-5.1); Protein, Total 7.3 g/dL (6.4-8.2)
[2024-11-18] MEDS ORDERED: ONDANSETRON 4 MG/2 ML VIAL IV PRN (20:51)
[2024-11-18] MEDS ORDERED: ACETAMINOPHEN 500 MG TAB PO PRN (20:51)
[2024-11-18] MEDS: VANCOMYCIN 1 GM in NA CHLORIDE 0.9% 250 ML IVPB SCH (21:00)
--- NOTE | 2024-11-18 21:00 | P.HP ---
Certification for Inpatient Patient admitted to: Inpatient With expected LOS: >2 Midnights Practitioner: I am a practitioner with admitting privileges, knowledge of patient current condition, hospital course, and medical plan of care. Services: Services provided to patient in accordance with Admission requirements found in Title 42 Section 412.3 of the Code of Federal Regulations Patient History Date of Service: 11/18/24 Reason for admission: Right upper extremity swelling History of Present Illness: Patient is a 39-year-old female with a past medical history of anxiety and obesity. She presented to the ER complaining of right forearm pain. Patient suspects recent exposure with poison david proximally around the right elbow. She then developed worsening erythema, swelling and pain distally. The site has mild opening, currently not self draining. Patient does not meet criteria for sepsis. However, the erythema and inflammation has been spreading beyond the demarcation line. Allergies No Known Allergies Allergy (Verified 12/22/19 10:44) Home Medications: Bupropion HCl [Wellbutrin] 100 mg PO BID 12/22/19 Estrogens, Conjugated [Premarin] 1 tab PO Q6H 12/22/19 Calcium Citrate/Vitamin D3 [Calcium Citrate-Vit D3 Caplet] 2 tab PO BID 12/23/19 Multivit-Min/Iron/Folic Acid/K [Bariatric Mv-Iron 45 mg Cap] 1 cap PO DAILY 12/23/19 - Past Medical/Surgical History -: lap abd sleeve -: c section -: breast reduction - Social History Alcohol use: No CD- Drugs: No Caffeine use: No Physical Examination - Physical Exam General: Acute distress, Obese HEENT: Atraumatic, Normocephalic Cardiovascular: No edema, Normal pulses, Regular rate/rhythm, Normal S1 S2 Integumentary: Tenderness/swelling, Erythema, Warmth Neurological: Normal speech - Studies Laboratory Data (last 24 hrs) 11/18/24 11/18/24 11/18/24 19:56 19:56 19:56 WBC 12.60 H Hgb 13.5 Hct 39.6 Plt Count 290 PT 12.1 INR 1.06 APTT 31.8 Sodium 138 Potassium 3.8 BUN 13 Creatinine 0.94 Glucose 98 Total Bilirubin 0.5 AST 11 L ALT 20 Alkaline Phosphatase 98 Assessment and Plan - Problems (Diagnosis) (1) Cellulitis and abscess of upper extremity Current Visit: Yes Status: Acute (2) Obesity Current Visit: Yes Status: Acute (3) Anxiety Current Visit: Yes Status: Acute - Plan Assessment This is a generally healthy 39-year-old female who is presenting with right forearm cellulitis and abscess. She does not meet criteria for sepsis but has an impressive inflammation. Cellulitis and abscess of right forearm Anxiety Obesity Plan: Will admit inpatient Normal saline infusion and empiric antibiotics with vancomycin and levofloxacin CT of the forearm to rule out abscess If CT impressive, will consider consulting general surgery Multimodal pain regimen Resume rest of home medication upon reconciliation Patient to be kept n.p.o. after midnight - Advance Directives Does patient have a Living Will: No Does patient have a Durable POA for Healthcare: No
--- NOTE | 2024-11-18 21:25 | EDPHYS ---
Physician Documentation [facility] Name: Cyndie Soliz Age: 39 yrs Sex: Female : 1985 Arrival Date: 11/18/2024 Time: 16:28 Bed 24 Private MD: ED Physician Terrance Inman HPI: 11/18 17:52 This 39 yrs old Female presents to ER via Ambulatory with complaints of Skin dr5 Problem - arm. 17:52 Onset: The symptoms/episode began/occurred 2 week(s) ago. Patient is a 39-year-old dr5 female with no past medical history coming in with poison david to right forearm that developed into abscess over the last 2 weeks. Patient reports that she marked around the site and the redness and swelling is getting worse. Patient has not taken antibiotics and was trying to wait to see if he got better. Patient denies fever. 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 - Infectious Disease History:: Denies. - Social history:: Smoking status: Patient denies any tobacco usage or history of. ROS: 17:52 Constitutional: as per hpi dr5 Exam: 17:52 Constitutional: This is a well developed, well nourished patient who is awake, alert, dr5 and in no acute distress. Head/Face: Normocephalic, atraumatic. Eyes: Pupils equal round and reactive to light, extra-ocular motions intact. Lids and lashes normal. Conjunctiva and sclera are non-icteric and not injected. Cornea within normal limits. Periorbital areas with no swelling, redness, or edema. Neck: Trachea midline, no thyromegaly or masses palpated, and no cervical lymphadenopathy. Supple, full range of motion without nuchal rigidity, or vertebral point tenderness. No Meningismus. Chest/axilla: Normal chest wall appearance and motion. Nontender with no deformity. No lesions are appreciated. Cardiovascular: Regular rate and rhythm with a normal S1 and S2. Normal PMI, no JVD. No pulse deficits. Respiratory: Lungs have equal breath sounds bilaterally, clear to auscultation. No rales, rhonchi or wheezes noted. No increased work of breathing, no retractions or nasal flaring. Back: No spinal tenderness. No costovertebral tenderness. Full range of motion. Neuro: Awake and alert, GCS 15, oriented to person, place, time, and situation. Cranial nerves II-XII grossly intact. Motor strength 5/5 in all extremities. Sensory grossly intact. Cerebellar exam normal. Normal gait. 17:52 Skin: Appearance: Color: abscess, that is large, of the dorsal aspect of right forearm, with fluctuance, with induration, with surrounding cellulitis, that is moderate, cellulitis, that is moderate, induration, that is moderate is noted, located on the dorsal aspect of right forearm, Hot to touch and tenderness to palpation over right forearm.. Vital Signs: 17:01 BP 150 / 98; Pulse 76; Resp 16; Temp 98.9(O); Pulse Ox 100% on R/A; Weight 117.93 kg; hb Height 5 ft. 7 in. ; Pain 8/10; 20:00 BP 123 / 71; Pulse 75; Resp 16; Pulse Ox 100% ; me1 21:00 BP 117 / 67; Pulse 79; Resp 18; Pulse Ox 99% ; me1 21:58 BP 118 / 69; Pulse 81; Resp 16; Pulse Ox 99% ; me1 17:01 Body Mass Index 40.72 (117.93 kg, 170.18 cm) hb 17:01 Pain Scale: Adult hb MDM: 16:35 Medical Screening Exam initiated dr5 23:32 Differential diagnosis: viral Infection, Cellulitis, Abscess. Data reviewed: vital dr5 signs, nurses notes. Consideration of Admission/Observation Patient was admitted/placed on observation. I considered the following discharge prescriptions or medication management in the emergency department Medications were administered in the Emergency Department. See MAR. Care significantly affected by the following Social Determinants of Health: Poor access to healthcare and/or lack of insurance, Poor access to transportation, Problems related to employment. Counseling: I had a detailed discussion with the patient and/or guardian regarding the historical points, exam findings, and any diagnostic results supporting the discharge/admit diagnosis, the presence of at least one elevated blood pressure reading (>120/80) during this emergency department visit, the need for further work-up and treatment in the hospital. Awaiting: Admission Bed. 11/18 17:07 Order name: Blood Culture Adult (2) hb 11/18 17:07 Order name: CBC with Diff; Complete Time: 23:43 hb 11/18 17:07 Order name: CMP; Complete Time: 23:43 hb 11/18 17:07 Order name: Lactate w/ 2H reflex if indic.; Complete Time: 23:43 hb 11/18 17:07 Order name: Protime (+inr); Complete Time: 23:43 hb 11/18 17:07 Order name: Ptt, Activated; Complete Time: 23:43 hb 11/18 23:44 Order name: Basic Metabolic Panel EDMS 11/18 23:44 Order name: Basic Metabolic Panel EDMS 11/18 23:44 Order name: CBC with Automated Diff EDMS 11/18 23:44 Order name: CBC with Automated Diff EDMS 11/18 23:44 Order name: Lipid Profile EDMS 11/18 23:44 Order name: Lipid Profile EDMS 11/18 17:07 Order name: Forearm Right XRAY; Complete Time: 17:41 hb 11/18 23:45 Order name: Forearm Right W Con; Complete Time: 23:48 EDMS 11/19 00:37 Order name: EDFL 11/18 17:07 Order name: Accucheck; Complete Time: 20:01 hb 11/18 17:07 Order name: IV Saline Lock - Large Bore; Complete Time: 20:01 hb 11/18 17:07 Order name: Labs collected and sent; Complete Time: 20:01 hb 11/18 17:07 Order name: O2 Per Protocol; Complete Time: 20:01 hb 11/18 17:07 Order name: O2 Sat Monitoring; Complete Time: 20:01 hb 11/18 17:07 Order name: Vital Signs; Complete Time: 20:01 hb Administered Medications: 20:13 Drug: Cefepime IVPB 2 grams IVPB at 200 ml/hr once over 30 mins; (mix in NS 100 mL) me1 Route: IVPB; Rate: 200 ml/hr; Infused Over: 30 mins; Site: left antecubital; 20:47 Follow up: Response: No adverse reaction; IV Status: Completed infusion me1 20:48 Drug: vancoMYCIN IVPB 20 mg/kg IVPB once; once over 2 hours; not to exceed 2 grams; me1 (mix in 250 to 500mL NS) Route: IVPB; Site: left antecubital; 21:53 Drug: morphine IVP or IV 4 mg IVP once over 4 mins Route: IVP; Infused Over: 4 mins; me1 Site: left antecubital; 21:54 Drug: Ondansetron IVP 4 mg IVP once; over 2 minutes Route: IVP; Site: left antecubital; me1 Disposition Summary: 11/18/24 21:24 Hospitalization Ordered Notes: Hospitalization Status: Inpatient Admission dr5 Provider: Prince matilde Boyer Condition: Stable dr5 Problem: new dr5 Symptoms: have worsened dr5 Bed/Room Type: Standard dr5 Location: [facility] ER HOLD(11/18/24 21:50) cg Room Assignment: ERHOLD-(11/18/24 21:50) cg Diagnosis - Cellulitis of right upper limb dr5 Forms: - Medication Reconciliation Form dr5 - SBAR form dr5 - Leadership Thank You Letter dr5 Addendum: 11/26/2024 08:13 Co-signature as Attending Physician, Terrance Inman MD I agree with the assessment and c marquis plan of care. Signatures: Dispatcher [employer] EDMS Terrance Inman MD MD cha Garcia, Cindy, RN RN Sabrina Casillas RN RN Yani Gregory RN RN me1 Luis Miguel Peguero, PASQUALE-C GRAPHOTYPE OPERATOR-Cdr5 Corrections: (The following items were deleted from the chart) 11/18 17:08 17:08 BLOOD CULTURE*+BA.LAB.BRZ ordered. EDMS EDMS 17:08 17:08 CBC+H.LAB.BRZ ordered. EDMS EDMS 17:08 17:08 COMPREHENSIVE METABOLIC PANEL+C.LAB.BRZ ordered. EDMS EDMS 17:08 17:08 LACTATE+C.LAB.BRZ ordered. EDMS EDMS 17:08 17:08 PROTIME (+INR)+COAG.LAB.BRZ ordered. EDMS EDMS 17:08 17:08 PTT, ACTIVATED+COAG.LAB.BRZ ordered. EDMS EDMS 21:50 21:24 Telemetry/MedSurg (observation) dr5 cg 21:50 21:24 dr5 cg 23:47 23:47 Extremity Venous Uni Ltd+US.RAD.BRZ ordered. EDMS EDMS
--- NOTE | 2024-11-18 21:25 | ER ---
Nurse's Notes [facility] Name: Cyndie Soliz Age: 39 yrs Sex: Female : 1985 Arrival Date: 11/18/2024 Time: 16:28 Bed 24 Private MD: Diagnosis: Cellulitis of right upper limb Presentation: 11/18 16:59 Chief complaint: Rash on right arm x 2 weeks, abscess on right forearm x 2 days. hb Coronavirus screen: At this time, the client does not indicate any symptoms associated with coronavirus-19. Ebola Screen: No symptoms or risks identified at this time. Initial Sepsis Screen: Does the patient meet any 2 criteria? No. Patient's initial sepsis screen is negative. Does the patient have a suspected source of infection? No. Patient's initial sepsis screen is negative. Risk Assessment: Do you want to hurt yourself or someone else? Patient reports no desire to harm self or others. Onset of symptoms. 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 - Infectious Disease History:: Denies. - Social history:: Smoking status: Patient denies any tobacco usage or history of. Screenin:40 [facility] ED Fall Risk Assessment (Adult) History of falling in the last 3 months, me1 including since admission No falls in past 3 months (0 pts) Confusion or Disorientation No (0 pts) Intoxicated or Sedated No (0 pts) Impaired Gait No (0 pts) Mobility Assist Device Used No (0 pt) Altered Elimination No (0 pt) Score/Fall Risk Level 0 - 2 = Low Risk Maintained a safe environment, Provided non-skid footwear, Hourly rounding (assess needs \T\ fall precautionary measures) done. Abuse screen: Denies threats or abuse. Nutritional screening: No deficits noted. Tuberculosis screening: No symptoms or risk factors identified. Assessment: 19:40 General: Appears uncomfortable, well groomed, well developed, well nourished, Behavior me1 is calm, cooperative, appropriate for age, Reports Rash on right arm x 2 weeks, abscess on right forearm x 2 days. Pain: Complains of pain in dorsal aspect of right forearm Pain does not radiate. Pain currently is 8 out of 10 on a pain scale. Quality of pain is described as pressure, Pain began gradually, Is continuous. Neuro: Level of Consciousness is awake, alert, obeys commands, Oriented to person, place, time, situation, Appropriate for age. Cardiovascular: Patient's skin is warm and dry. Respiratory: Airway is patent Respiratory effort is even, unlabored, Respiratory pattern is regular, symmetrical. GI: No signs and/or symptoms were reported involving the gastrointestinal system. : No signs and/or symptoms were reported regarding the genitourinary system. EENT: No signs and/or symptoms were reported regarding the EENT system. Derm: Wound noted dorsal aspect of right forearm. Musculoskeletal: Swelling present in dorsal aspect of right forearm. Vital Signs: 17:01 BP 150 / 98; Pulse 76; Resp 16; Temp 98.9(O); Pulse Ox 100% on R/A; Weight 117.93 kg; hb Height 5 ft. 7 in. ; Pain 8/10; 20:00 BP 123 / 71; Pulse 75; Resp 16; Pulse Ox 100% ; me1 21:00 BP 117 / 67; Pulse 79; Resp 18; Pulse Ox 99% ; me1 21:58 BP 118 / 69; Pulse 81; Resp 16; Pulse Ox 99% ; me1 17:01 Body Mass Index 40.72 (117.93 kg, 170.18 cm) hb 17:01 Pain Scale: Adult hb ED Course: 16:30 Patient arrived in ED. im 16:34 Luis Miguel Peguero FNP-C is PHCP. dr5 16:34 Terrance Inman MD is Attending Physician. dr5 17:01 Arm band placed on. hb 17:03 Triage completed. hb 17:33 Forearm Right XRAY In Process Unspecified. EDMS 19:40 Patient has correct armband on for positive identification. Bed in low position. Call me1 light in reach. Side rails up X2. Provided Education on: POC. Verbalized understanding.. Client placed on continuous cardiac and pulse oximetry monitoring. NIBP monitoring applied. Pulse ox on. NIBP on. 19:40 No provider procedures requiring assistance completed. me1 19:44 Yani Gregory, RN is Primary Nurse. me1 19:56 Initial lab(s) drawn, by oh, sent to lab. First set of blood cultures drawn by oh. me1 20:00 Inserted saline lock: 22 gauge in left antecubital area, using aseptic technique. me1 20:01 Blood Culture Adult (2) Sent. me1 20:01 CBC with Diff Sent. me1 20:01 CMP Sent. me1 20:01 Lactate w/ 2H reflex if indic. Sent. me1 20:01 Protime (+inr) Sent. me1 20:01 Ptt, Activated Sent. me1 20:08 Second set of blood cultures drawn by oh. me1 21:24 Prince Boyer MD is Hospitalizing Provider. dr5 Administered Medications: 20:13 Drug: Cefepime IVPB 2 grams IVPB at 200 ml/hr once over 30 mins; (mix in NS 100 mL) me1 Route: IVPB; Rate: 200 ml/hr; Infused Over: 30 mins; Site: left antecubital; 20:47 Follow up: Response: No adverse reaction; IV Status: Completed infusion me1 20:48 Drug: vancoMYCIN IVPB 20 mg/kg IVPB once; once over 2 hours; not to exceed 2 grams; me1 (mix in 250 to 500mL NS) Route: IVPB; Site: left antecubital; 21:53 Drug: morphine IVP or IV 4 mg IVP once over 4 mins Route: IVP; Infused Over: 4 mins; me1 Site: left antecubital; 21:54 Drug: Ondansetron IVP 4 mg IVP once; over 2 minutes Route: IVP; Site: left antecubital; me1 Medication: 19:40 VIS not applicable for this client. me1 Outcome: 21:24 Decision to Hospitalize by Provider. dr5 11/19 10:12 Patient left the ED. eb Signatures: Dispatcher [employer] EDSabrina Pop, BRANDT RN Oly Warner Itzel Yani Gregory, RN RN me1 LuisM iguel Peguero, COURTESY DRIVER-C COURTESY DRIVER-Cdr5 Corrections: (The following items were deleted from the chart) 11/18 21:55 16:59 Chief complaint: Rash on right arm x 2 weeks, abscess on right forearm x 2 days hbme1
--- NOTE | 2024-11-18 21:37 | RAD REPORT ---
EXAM: CT right forearm with contrast CLINICAL INDICATION: Right forearm cellulitis, rule out abscess. TECHNIQUE: CT of the right forearm with contrast. Axial, sagittal, and coronal reconstructed images. This exam was performed according to our departmental dose-optimization program, which includes automated exposure control, adjustment of the mA and/or kV according to patient size and/or use of it erative reconstruction technique. COMPARISON: Plain radiograph FINDINGS: Moderate skin thickening with subcutaneous fat stranding is present involving the radial aspect of th e forearm. Small skin ulceration is present (image 56/149). Small subcutaneous fluid collection at this level measures 11 x 4 mm. Mild deep or fluid is seen adjacent to the forearm musculature. No sof t tissue gas is present. No radiopaque foreign body. No evidence of underlying osteomyelitis. IMPRESSION: Skin thickening and moderate subcutaneous inflammation. Small focal skin lesion with subcutaneous flu id collection present (image 56/149) measuring 11 x 4 mm.. This is probably a small abscess.
[2024-11-18] MEDS ORDERED: ONDANSETRON 4 MG/2 ML VIAL ONE (21:44)
[2024-11-18] MEDS ORDERED: MORPHINE 4 MG/ML SYR ONE (21:44)
[2024-11-18] MEDS: HYDROMORPHONE HCL 1 MG/ML INJ IV PRN (22:20)
[2024-11-18] MEDS: NA CHLORIDE 0.9% 1,000 ML IV SCH (22:20)
[2024-11-18] MEDS: Levofloxacin 750mg IV 750 MG/150 ML BAG IV SCH (22:20)
[2024-11-18] MEDS ORDERED: Levofloxacin 750mg IV 750 MG/150 ML BAG IV ONE (22:36)
[2024-11-18] MEDS ORDERED: NA CHLORIDE 0.9% 1,000 ML ONE (22:36)
[2024-11-18] MEDS ORDERED: HYDROMORPHONE HCL 1 MG/ML INJ ONE (22:49)
--- NOTE | 2024-11-19 00:37 | RAD REPORT ---
CLINICAL HISTORY: Pain;Swelling. COMPARISON: None. TECHNIQUE: Survey ultrasound imaging of the deep venous system of right neck and upper extremity was performed including grayscale, color, and spectral Doppler evaluation with unit support representative images obtained. Segmental venous compression was performed where feasible. FINDINGS: Internal jugular vein: Patent without thrombus. Pulsatility is indirect evidence of central patency. Subclavian vein: Patent without thrombus. Axillary vein: Patent without thrombus. Brachial vein(s): Patent without thrombus. Radial vein: Patent without thrombus. Ulnar vein: Patent without thrombus. Superficial cephalic vein: Patent without thrombus. Superficial basilic vein: Patent without thrombus. In the region of concern in the right forearm, there are 2 adjacent complex irregularly shaped fluid collections measuring up to 1.8 cm in extent. IMPRESSION: 1. Negative for right upper extremity deep venous thrombosis. 2. Two adjacent complex irregularly shaped fluid collections in the region of concern in the forear m. Differential includes hematoma, versus abscess in the appropriate clinical setting. Electronically signed by: Alina Barrera MD 11/19/2024 12:29 AM [facility] Due to temporary technical issues with the [email or web address] reporting system, reports are being sign ed by the in-house radiologist without review as a courtesy to ensure prompt reporting the interpreting rad iologist is fully responsible for the content of the report. Transcribed Date/Time: 11/19/2024 12:37 AM
[2024-11-19] MEDS ORDERED: HYDROMORPHONE HCL 1 MG/ML INJ ONE ×2 (02:40→06:27)
[2024-11-19 06:47] LABS: Absolute Eosinophils 0.2 K/uL (0-0.5); Absolute Lymphocytes (CBC) 1.6 K/uL (0.7-4.9); Absolute Monocytes 0.9 K/uL (0.1-1.3); Absolute Neutrophil 8.4 K/uL (1.8-8.0); Basophils % 0.2 % (0-1.3); Eosinophils % 1.7 % (0-4.4); Hematocrit 34.9 % (36.0-45.0); Hemoglobin 11.9 g/dL (12.0-15.0); Lymphocytes % 14.3 % (15.3-44.8); MCH 29.8 pg (27.0-35.0); MCV 87.6 fL (80-100); MPV 7.5 fL (7.6-11.3); Neutrophils % 75.8 % (41.7-73.7); Platelets 213 thou/uL (152-406); RBC Red Blood Cell Count 3.98 M/uL (3.86-4.86); Red Cell Distribution Width 12.8 % (12.1-15.2)
[2024-11-19 07:05] LABS: Anion Gap 7.8 mEq/L (5.0-15.0); Potassium 3.8 mEq/L (3.5-5.1)
[2024-11-19] MEDS ORDERED: VANCOMYCIN 2 GM in NA CHLORIDE 0.9% 500 ML IVPB SCH (08:00)
[2024-11-19] MEDS: VANCOMYCIN 2 GM in NA CHLORIDE 0.9% 500 ML IVPB SCH (08:59)
--- NOTE | 2024-11-19 09:45 | P.CNS ---
Date of Consult: 11/19/24 Reason for consult: Right forearm pain History of present illness: Patient is a 39-year-old female who comes in with 6- day history of infection of the right forearm. Patient had a small open wound from poison david that appears to have secondarily been infected. Patient is noticed increasing swelling, redness, warmth and pain and then came to the ER last night. She denies any fever or chills. No purulent discharge. Patient denies sore throat, runny nose, cough, headaches, dizziness or chest pain or chest pain. Review of systems: Otherwise unremarkable Past medical history: Anxiety Past surgical history: Breast reduction surgery, gastric sleeve, cholecystectomy and Allergies: None Social history: Patient denies smoking or drinking alcohol Family history: Alzheimer's disease Vital signs: Stable, afebrile Physical exam: Awake, alert and oriented x 3 Head and neck exam: No masses Chest: Clear Heart: S1-S2 Abdomen: Soft Extremity: Neurovascular intact, right forearm has approximately 3 x 4 cm induration with central fluctuance surrounded by erythema, warmth, edema and redness Neuro: Nonfocal Diagnostic data: Leukocytosis and CT/ultrasound consistent with abscess Assessment: Abscess and cellulitis right forearm Plan/recommendation: Admit, n.p.o., IV fluids, IV antibiotics and to the OR for incision, drainage and debridement of right forearm abscess. Patient and understand risk, benefits and alternatives and agrees to procedure. CC:
[2024-11-19] MEDS: NA CHLORIDE 0.9% 1,000 ML ONE (10:30)
[2024-11-19] MEDS ORDERED: MIDAZOLAM HCL 2 MG/2 ML INJ ONE (10:39)
[2024-11-19] MEDS ORDERED: FENTANYL CITR 100 MCG/2 ML ONE (10:39)
[2024-11-19] MEDS ORDERED: propofoL 200 MG/20 ML VIAL IV ONE (10:39)
[2024-11-19] MEDS: BUPIVACAINE 0.5% PF 10 ML VIAL ONE (11:12)
--- NOTE | 2024-11-19 11:27 | P.PN ---
Date of Service: 11/19/24 Subjective: has been dealing with forearm pain, erythema for almost 1 week reports small open wound from what she believe was poison david feeling slightly better this morning NPO for tentative I&D Physical Exam: GEN: Alert, oriented, NAD Integumentary: R forearm induration with surrounding erythema, warmth, swelling Neuro: Normal speech, normal affect Problem List: Right forearm abscess and cellulitis Anxiety on admission, presents with right forearm pain, erythema, inflammation with small opening. no drainage. 11/18 - CT upper extremity consistent with R forearm abscess with surrounding skin thickening and moderate subq inflammation Venous u/s negative for RUE DVT but noted two adjacent complex irregularly shaped fluid collections in forearm region. Empiric Abx, IV fluids, pain control Follow blood cultures 11/19 - Dr. Rodas, general surgeon consulted NPO for tentative I&D of R forearm abscess continue IV levaquin / vanc (11/18-) Code: Full Dispo: Home 24-48hrs Pending surgery/recovery, surgical recs Time Spent Managing Pts Care (In Minutes): 55
--- NOTE | 2024-11-19 11:31 | P.OP ---
Date of Service: 11/19/24 Preop diagnosis: Abscess and cellulitis right forearm Postop diagnosis: Same Procedure performed: Incision, drainage and debridement of right forearm abscess Surgeon: Dylan Rodas MD Cut Off Machine Helper: None Estimated blood loss: Minimal Specimen: Pus and necrotic tissue Findings: As above Anesthesia: General Complications: None Drains: None Fluids and blood products: Nonapplicable Disposition: Recovery room Operative note: Patient brought to the OR and placed in supine position. General anesthesia began. Patient prepped and draped in usual sterile fashion. Marcaine 0.5% very locally for postop pain control. Patient had a small pustule in the proximal right forearm. The scab was removed and the pus was evacuated. A 3 x 1 cm incision was made over the fluctuant part of the right forearm abscess. Pus under pressure was evacuated. Cultures were done. All necrotic tissue was debrided. Loculations were broken and wound was irrigated. Bleeding was controlled with cautery. Wet-to-dry normal saline dressing change applied. Patient tolerated the procedure in stable condition and taken to recovery room in good general condition. CC:
[2024-11-19] MEDS ORDERED: ONDANSETRON 4 MG/2 ML VIAL IV PRN (11:35)
[2024-11-19] MEDS: HYDROCODONE/APAP 7.5/325 MG TAB PO PRN (12:36)
[2024-11-19] MEDS: NA CHLORIDE 0.9% 0 ML ONE (21:37)
[2024-11-19] MEDS: VANCOMYCIN 1 GM/VIAL ONE ×2 (21:38→21:56)
[2024-11-19] MEDS: buPROPion HCL 100 MG TAB PO SCH (21:46)
[2024-11-19] MEDS: NA CHLORIDE 0.9% 500 ML ONE (21:56)
[2024-11-19 22:18] VITALS: BMI 40.7
[2024-11-20 06:36] LABS: Absolute Eosinophils 0.2 K/uL (0-0.5); Absolute Monocytes 0.7 K/uL (0.1-1.3); Absolute Neutrophil 6.7 K/uL (1.8-8.0); Basophils % 0.3 % (0-1.3); Eosinophils % 2.3 % (0-4.4); Hematocrit 35.6 % (36.0-45.0); Hemoglobin 12.1 g/dL (12.0-15.0); Lymphocytes % 20.6 % (15.3-44.8); MCH 29.8 pg (27.0-35.0); MCV 87.8 fL (80-100); MPV 7.8 fL (7.6-11.3); Monocytes % 7.6 % (3.3-12.3); Neutrophils % 69.2 % (41.7-73.7); Platelets 232 thou/uL (152-406); RBC Red Blood Cell Count 4.06 M/uL (3.86-4.86); Red Cell Distribution Width 12.8 % (12.1-15.2)
[2024-11-20] MEDS: SMZ./TMP. 800/160 MG TABLET PO SCH (09:35)
[2024-11-20] MEDS: DIPHENHYDRAMINE 50 MG/ML VIAL IV ONE (09:36)
[2024-11-20 10:26] VITALS: O2SAT 97
--- NOTE | 2024-11-20 12:51 | PN ---
Date of Progress Note: 11/20/2024 Subjective: The patient is awake, alert. No complaint. Vitals stable, afebrile. White count is no rmal today with no left shift. Dressing is clean, dry, intact. The patient had the dressing already changed and per report, the redness has markedly improved and there was no purulent discharge from t he surgical wound. Currently, her dressing is clean, dry, intact, and the redness is less than it wa s yesterday. Assessment: Status post I and D of right forearm abscess. Recommendations: The patient cleared from surgical standpoint for discharge. The patient will be di scharged on antibiotics, Bactrim. We will check the cultures and adjust the antibiotics accordingly as an outpatient. Wound care instructions given in detail. Discharge instruction given in detail. Plan of care discussed with the hospitalist and the patient and family. /MODL Voice ID: [id number] Report ID: [id number]
[2024-11-20 14:05] VITALS: BP 111/65; TEMP 98.7
--- NOTE | 2024-11-21 10:41 | P.DS ---
Admission Date: 11/18/24 Discharge Date: 11/20/24 Disposition: ROUTINE DISCHARGE Discharge Condition: GOOD Reason for Admission: Right upper extremity swelling Consultations: General surgery - Dr. Rodas Brief History of Present Illness: 39yo F, PMH: anxiety and obesity. She presented to the ER complaining of right forearm pain. Patient suspects recent exposure with poison david proximally around the right elbow. She then developed worsening erythema, swelling and pain distally. The site has mild opening, currently not self draining. Patient does not meet criteria for sepsis. However, the erythema and inflammation has been spreading beyond the demarcation line. Hospital Course: Problem List: Right forearm abscess and cellulitis s/p I&D (11/19) Anxiety Physician discharge instructions: Patient presented with right forearm pain, erythema, inflammation for ~1 week secondary to right forearm abscess and cellulitis. CT of right upper extremity was consistent with forearm abscess. Venous ultrasound was negative for right upper extremity DVT, however it did note two adjacent complex irregularly shaped fluid collections in the forearm region. Patient was evaluated by Dr. Rodas, general surgeon, and underwent I&D of right forearm abscess of 11/19. She was found to have pus and necrotic tissue during surgery. Wound cultures were obtained during surgery however pending upon discharge. Blood cultures have been without growth since 11/18. Patient received IV levaquin and vancomycin while hospitalized and is to complete 1 week of oral bactrim on discharge. She tolerated initial bactrim dose without issues prior to discharge. Patient did well post-operatively, feeling better, wanting to go home, forearm erythema and pain improving, and was deemed stable for discharge. Patient remained afebrile throughout hospitalization. Leukocytosis resolved on day of discharge. Follow up with Dr. Rodas in ~1 week for further management and follow up on culture results. Medications: Bactrim x1 week [place] as needed for pain Follow up: PCP 3-[address] Rodas in 1 week Please call to schedule / confirm appointments Physical Exam: GEN: Alert, oriented, NAD CV: Regular rate and rhythm, no edema Pulm: Nonlabored respirations on room air, clear bilaterally ABD: soft, nontender, nondistended Integumentary: R forearm with dressing in place c/d/i Neuro: Normal speech, normal affect Vital Signs/Physical Exam: Temp Pulse Resp BP Pulse Ox 98.7 F 67 18 111/65 97 04/13/25 12:00 11/20/24 12:00 11/20/24 12:38 11/20/24 12:00 11/20/24 12:38 Laboratory Data at Discharge: WBC 9.60 thou/uL (4.3-10.9) 11/20/24 06:25 Hgb 12.1 g/dL (12.0-15.0) 11/20/24 06:25 Hct 35.6 % (36.0-45.0) L 11/20/24 06:25 Plt Count 232 thou/uL (152-406) 11/20/24 06:25 PT 12.1 SECONDS (10-13.0) 11/18/24 19:56 INR 1.06 11/18/24 19:56 APTT 31.8 SECONDS (27.2-37.4) 11/18/24 19:56 Sodium 139 mEq/L (136-145) 11/19/24 06:39 Potassium 3.8 mEq/L (3.5-5.1) 11/19/24 06:39 BUN 9 mg/dL (7-18) 11/19/24 06:39 Creatinine 0.76 mg/dL (0.55-1.02) 11/19/24 06:39 Glucose 98 mg/dL (74-106) 11/19/24 06:39 Total Bilirubin 0.5 mg/dL (0.2-1.0) 11/18/24 19:56 AST 11 U/L (15-37) L 11/18/24 19:56 ALT 20 U/L (13-56) 11/18/24 19:56 Alkaline Phosphatase 98 U/L (45-117) 11/18/24 19:56 Triglycerides 77 mg/dL (<150) 11/19/24 06:39 Cholesterol 152 mg/dL (<200) 11/19/24 06:39 HDL Cholesterol 58 mg/dL (40-60) 11/19/24 06:39 Cholesterol/HDL Ratio 2.62 11/19/24 06:39 Home Medications: Bupropion HCl [Wellbutrin] 100 mg PO BID 12/22/19 Ferrous Sulfate [Iron] 65 mg PO DAILY 11/19/24 Codeine/APAP [Tylenol W/Codeine #3 tab] 1 tab PO Q6HP PRN #20 tab 11/20/24 Hydrocodone 7.5/APAP 325 [[place] 7.5/325 mg*] 1 tab PO Q6H PRN #15 tab 11/20/24 Hydrocodone 7.5/APAP 325 [[place] 7.5/325 mg] 1 tab PO Q6H PRN #15 tab 11/20/24 Smz./Tmp. [Bactrim Ds 800 MG/160 MG*] 1 tab PO BID 7 Days #14 tab 11/20/24 New Medications: Codeine/APAP [Tylenol W/Codeine #3 tab] 1 tab PO Q6HP PRN #20 tab PRN Reason: Pain Smz./Tmp. [Bactrim Ds 800 MG/160 MG*] 1 tab PO BID 7 Days #14 tab Hydrocodone 7.5/APAP 325 [[place] 7.5/325 mg*] 1 tab PO Q6H PRN #15 tab PRN Reason: Pain Scale 8-10 (Severe) Hydrocodone 7.5/APAP 325 [[place] 7.5/325 mg] 1 tab PO Q6H PRN #15 tab PRN Reason: Pain Physician Discharge Instructions: Physician discharge instructions: Patient presented with right forearm pain, erythema, inflammation for ~1 week secondary to right forearm abscess and cellulitis. CT of right upper extremity was consistent with forearm abscess. Venous ultrasound was negative for right upper extremity DVT, however it did note two adjacent complex irregularly shaped fluid collections in the forearm region. Patient was evaluated by Dr. Rodas, general surgeon, and underwent I&D of right forearm abscess of 11/19. She was found to have pus and necrotic tissue during surgery. Wound cultures were obtained during surgery however pending upon josse gardner. Blood cultures have been without growth since 11/18. Patient received IV levaquin and vancomycin while hospitalized and is to complete 1 week of oral bactrim on discharge. She tolerated initial bactrim dose without issues prior to discharge. Patient did well post-operatively, feeling better, wanting to go home, forearm erythema and pain improving, and was deemed stable for discharge. Patient remained afebrile throughout hospitalization. Leukocytosis resolved on day of discharge. Follow up with Dr. Rodas in ~1 week for further management and follow up on culture results. Medications: Bactrim x1 week [place] as needed for pain Follow up: PCP 3-[address] Rodas in 1 week Please call to schedule / confirm appointments Continue local wound care per surgery: Wet-to-dry normal saline dressing changes daily Activity as tolerated no heavy lifting Resume home meds and diet Incentive spirometry as instructed Follow-up my office 1 week, call for appointment Elevate right arm at level of heart or above Antibiotics and pain medicine per the hospitalist team Diet: Regular Activity: No lifting more than 10 lbs Followup: Kell Hope NP [Primary Care Provider] - 1 Week (Call for assist.) Dylan Rodas MD [ACTIVE - CAN ADMIT] - 1 Week (call for appointment.) Time spent managing pt's care (in minutes): 45
== END 2024-11-20 13:30 | disposition home or self-care (01) | DRG 264 ==
LOC: ER 16:28 → ERHOLD 20:51 → 4TH 11-19 11:41
PROVIDERS: ADMIT Internal Medicine; ATTEND Hospitalist
PROC: 0JBG0ZZ Excision of Right Lower Arm Subcutaneous Tissue and Fascia, Open Approach (ICD-10-PCS; principal; 2024-11-19 10:00)
DX: I96 Gangrene, not elsewhere classified (principal); L03.113 Cellulitis of right upper limb; Z68.41 Body mass index [BMI] 40.0-44.9, adult; L02.413 Cutaneous abscess of right upper limb; E66.9 Obesity, unspecified; F41.9 Anxiety disorder, unspecified; Z79.899 Other long term (current) drug therapy
CPT/HCPCS: 36415; 73201; 80048; 80053; 80061; 81025; 83605; 85025; 85610; 85730; 87040; 87070; 87075; 87077; 87186; 87205; 88304; 93971; 94010; 96365; 96375; 99284; J0692; J1171; J1200; J2250; J2405; J2704; J3010; J3370; J7030; J7040; J7050; Q9967